=== PATIENT | female | born 1930 | race Hispanic/Latino ===

== ENCOUNTER 2016-12-20 21:15 | Inpatient (IN) | payer MEDICARE ==
--- NOTE | 2016-12-20 22:30 | ED PDOC ---
HPI: Trauma/Fall - HPI Time Seen by Provider: 12/20/16 21:39 Chief Complaint (Nursing): Trauma Chief Complaint (Provider): Evaluation s/p Fall History Per: Patient History/Exam Limitations: no limitations Injury Occurred (Timing): Just Before Arrival Location Of Injury: Right: Arm, Wrist Severity: Moderate Associated Symptoms: denies: LOC Additional Complaint(s): Essence Orona is an 86 year old female, with a past medical history inclusive of HTN, hypercholesterolemia, type II diabetes and a benign essential tremor, who presents to the ED on 12/20/16, via EMS, for evaluation after having slipped and fallen down a set of 15 stairs just prior to arrival. Patient is currently complaining of right arm pain and states that she did not attempt to ambulate post injury. She is unsure of whether or not she sustained any head trauma but denies loss of consciousness and states that she is able to remember the entire incident. PMD: Justo Peters Past Medical History Reviewed: Historical Data, Nursing Documentation, Vital Signs Vital Signs: Last Vital Signs Temp 97.3 F L 12/20/16 21:16 Pulse 64 12/20/16 21:16 Resp 20 12/20/16 21:16 BP 148/84 12/20/16 21:16 Pulse Ox 95 12/20/16 21:16 - Medical History PMH: Diabetes (type II), HTN, Hypercholesterolemia Other PMH: benign essential tremor - Surgical History Surgical History: Endoscopy - Family History Family History: States: Unknown Family Hx - Social History Current smoker - smoking cessation education provided: No Alcohol: None Drugs: Denies - Home Medications Home Medications: Ambulatory Orders Medication Instructions Recorded Alprazolam [Xanax] 0.25 mg PO DAILY 12/20/16 Atorvastatin [Lipitor] 10 mg PO DAILY 12/20/16 Hydrochlorothiazide [Microzide] 12.5 mg PO DAILY 12/20/16 Primidone [Mysoline] 250 mg PO DAILY 12/20/16 Propranolol [Inderal LA] 120 mg PO DAILY 12/20/16 metFORMIN [glucOPHAGE] 500 mg PO BID 12/20/16 - Allergies Allergies/Adverse Reactions: Allergies Allergy/AdvReac Type Severity Reaction Status Date / Time No Known Allergies Allergy Verified 12/20/16 21:16 Review of Systems ROS Statement: Except As Marked, All Systems Reviewed And Found Negative Musculoskeletal: Positive for: Arm Pain (right arm pain s/p fall) Neurological: Negative for: Altered Mental Status (no LOC, able to remember all events of incident) Physical Exam - Reviewed Nursing Documentation Reviewed: Yes Vital Signs Reviewed: Yes - Physical Exam Appears: Positive for: Non-toxic, No Acute Distress Head Exam: Positive for: ATRAUMATIC, NORMAL INSPECTION, NORMOCEPHALIC Skin: Positive for: Normal Color, Warm, Dry Eye Exam: Positive for: Normal appearance, EOMI, PERRL Neck: Positive for: Normal (c-spine is nontender), Painless ROM, Supple Cardiovascular/Chest: Positive for: Regular Rate, Rhythm. Negative for: Murmur Respiratory: Positive for: Normal Breath Sounds. Negative for: Respiratory Distress Pulses-Dorsalis Pedis (L): 2+ Pulses-Dorsalis Pedis (R): 2+ Pulses-Radial (L): 2+ Pulses-Radial (R): 2+ Gastrointestinal/Abdominal: Positive for: Normal Exam, Soft. Negative for: Tenderness Back: Positive for: Normal Inspection. Negative for: Vertebral Tenderness Extremity: Positive for: Tenderness (right elbow, right wrist), Capillary Refill (<2 seconds), Swelling (right elbow, right wrist, left knee), Other ( ecchymosis noted to left bicep and left knee). Negative for: Normal ROM ( limited ROM of right elbow/wrist secondary to pain; FROM of all remaining extremities including right shoulder and left knee), Deformity Neurologic/Psych: Positive for: Alert, Oriented, Other ((+) tremor). Negative for: Motor/Sensory Deficits (all motor/sensory intact) - Laboratory Results Result Diagrams: 12/21/16 23:52 12/21/16 00:10 - ECG O2 Sat by Pulse Oximetry: 95 (RA) Pulse Ox Interpretation: Normal - Critical Care Total Time (In Min): 30 Medical Decision Making Medical Decision Makin:39 Initial Impression: possible wrist fracture; will r/o other traumatic injury based on physical exam findings Initial Plan: * CT Head w/o contrast * CXR * XR Right Shoulder * XR Right Elbow * XR Right Wrist * XR Pelvis * XR Left Knee * Tylenol 650mg PO * Reevaluation 00:00 Multiple attempts to consult case with Dr. Cabello were made. No response from Dr. Cabello has been received in the past three hours, along with failure to answer any calls that were made to his personal cell phone number or pages made to his pager. Patient admitted to hospitalist service, Dr. Cook at bedside. 00:38 Procedure- Initial Fracture Care Indication: The patient has a right elbow fracture. Consent obtained from family members, patient given ketamine (see procedure note ), consent obtained. Gentle traction applied, splint placed with sugar tong, post-reduction xray obtained with better anatomical alignment. Post-procedure neuro check shows intact pulses and sensation. Assessment: The fracture was appropriately immobilized and was neurovascularly intact Procedure- conscious sedation 80mg of ketamine Patient placed on monitor including ETCO2, consent obtained from family members. Pt. with decreased arousability during reduction. Patient tolerated medication well, vitals tracked carefully. Scribe Attestation: Documented by Mirlande Stafford, acting as a scribe for Jamal Simon MD. Provider Scribe Attestation: All medical record entries made by the Scribe were at my direction and personally dictated by me. I have reviewed the chart and agree that the record accurately reflects my personal performance of the history, physical exam, medical decision making, and the department course for this patient. I have also personally directed, reviewed, and agree with the discharge instructions and disposition. Disposition - Clinical Impression Clinical Impression: Elbow fracture, Wrist fracture - Disposition Disposition Time: 00:00 Condition: STABLE
--- NOTE | 2016-12-20 22:33 | CT ---
EXAM: CT Head Without Intravenous Contrast. CLINICAL HISTORY: 86 years old, female; Injury or trauma; Fall; Initial encounter; Concussion / head injury; Additional info: R/O trauma TECHNIQUE: Axial computed tomography images of the head/brain without intravenous contrast. This CT exam was performed using one or more of the following dose reduction techniques: automated exposure control, adjustment of the mA and/or kV according to patient size, and/or use of iterative reconstruction technique. EXAM DATE/TIME: 12/20/2016 9:47 PM COMPARISON: No relevant prior studies available. FINDINGS: There is atrophy. There is chronic small vessel ischemic disease. There is no hemorrhage or edema. Mucosal thickening ethmoid and maxillary sinuses greater on the right. Small mucosal retention cyst left sphenoid sinus. No fractures. IMPRESSION: No acute intracranial findings.
[2016-12-20] MEDS ORDERED: Ketamine 50 mg/ml Inj (10 ml) ONE (23:56)
[2016-12-21] MEDS ORDERED: Ketamine 50 mg/ml Inj (10 ml) IV ONE (00:09)
--- NOTE | 2016-12-21 00:19 | RAD ---
EXAM: XR Right Elbow Complete, 3 or More Views. CLINICAL HISTORY: 86 years old, female; Injury or trauma; Fall; Initial encounter; Fracture, traumatic injury; Closed fracture; Elbow; Right; Additional info: R/O trauma TECHNIQUE: Frontal, lateral and oblique views of the right elbow. EXAM DATE/TIME: 12/20/2016 9:48 PM COMPARISON: No relevant prior studies available. FINDINGS: There is a displaced fracture resulting in separation of the olecranon from the proximal ulna. There is angulation as well as approximately 2 cm overlap of the olecranon and proximal ulna. There is irregularity of the radial head. There is probable capitellar fracture suboptimally evaluated on this study. IMPRESSION: Comminuted displaced fracture resulting in complete separation of the olecranon from the ulna with overlap and angulation resulting in disruption of the normal articulation. CT may be helpful for further evaluation given the complex nature of the fracture.
[2016-12-21 00:25] LABS: BASO % 0.4 % (0.0-2.0); EOS # 0.1 K/uL (0.0-0.7); EOS % 0.7 % (0.0-4.0); HEMATOCRIT 36.5 % (34.0-47.0); LYMPH # 0.8 K/uL (1.0-4.3); LYMPH % 6.5 % (20.0-40.0); MEAN CELL VOLUME 99.6 fl (81.0-99.0); MEAN CORPUSCULAR HEMOGLOBIN 32.9 pg (27.0-31.0); MONO # 0.7 K/uL (0.0-0.8); MONO % 5.9 % (0.0-10.0); NEUT # 10.6 K/uL (1.8-7.0); NEUT % 86.5 % (50.0-75.0); NRBC % 0.1 % (0.0-0.0); PLATELET COUNT 199 K/uL (130-400); RED CELL DISTRIBUTION WIDTH 14.1 % (11.5-14.5); WHITE BLOOD COUNT 12.3 K/uL (4.8-10.8)
[2016-12-21 00:39] LABS: BLOOD UREA NITROGEN 22 mg/dl (7-17); CALCIUM 9.1 mg/dL (8.4-10.2); CARBON DIOXIDE 28 mmol/L (22-30); CHLORIDE 98 mmol/L (98-107); GFR AFRICAN-AMERICAN > 60; GLUCOSE,RANDOM 151 mg/dL (65-105); POTASSIUM 3.7 MMOL/L (3.6-5.0); SODIUM 139 mmol/l (132-148)
[2016-12-21 01:02] LABS: PARTIAL THROMBOPLASTIN TIME 26.8 SECONDS (23.3-32.5)
[2016-12-21] MEDS: Sodium Chloride 0.9% 1,000 ML IV SCH ×3 (02:25→22:12)
[2016-12-21 02:26] LABS: NEUTROPHIL 87 % (42-75); REACTIVE LYMPHOCYTES 3 % (0-0); TOTAL CELLS COUNTED 100
--- NOTE | 2016-12-21 02:34 | CP.PCM.HP ---
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 She is an 86 years old female with hx of HTN, DM II and Essential Tremors, who comes to the ED after slipping and falling down 15 stairs receiving trauma to the right arm and wrist , left shoulder, left knee and the buttocks. No LOC nor head injury. She refers no headache, dizziness, SOB, Chest pain nor palpitation. PMH: DM II; HTN; HLD; Benign Essential tremors. PSH: Endoscopy; Cardiac Cath 2010; Cholecystectomy > 20 years ago; Bilateral Knee replacement SH: No smoking; No Alcohol use; No illegal drug use; Live with Family FH: No Hereditary diseases Allergies: NKDA Present on Admission - Present on Admission Any Indicators Present on Admission: No History of DVT/PE: No History of Uncontrolled Diabetes: No Urinary Catheter: No Decubitus Ulcer Present: No Review of Systems - Constitutional Constitutional: absent: Anorexia, Chills, Fatigue, Fever, Headache - EENT Eyes: Requires Corrective Lenses. absent: Blurred Vision, Diplopia Ears: absent: Decreased Hearing, Ear Discharge, Tinnitus Nose/Mouth/Throat: absent: Epistaxis, Nasal Congestion, Nasal Discharge, Sinus Pain, Sinus Pressure, Sore Throat - Cardiovascular Cardiovascular: absent: Chest Pain, Diaphoresis, Dyspnea, Edema - Respiratory Respiratory: absent: Cough, Wheezing, Stridor - Gastrointestinal Gastrointestinal: absent: Abdominal Pain, Constipation, Diarrhea, Nausea - Genitourinary Genitourinary: absent: Dysuria, Pyuria, Urinary Incontinence, Urinary Frequency , Freq UTI - Musculoskeletal Additional comments: Ecchymosis at the left arm, left knee , tight shoulder. - Integumentary Integumentary: absent: Dry Skin, Erythema, Photosensitivity, Pruritus, Skin Ulcer, Sores, Striae, Swelling - Neurological Neurological: Tremor. absent: Focal Weakness, Headaches, Memory Loss - Psychiatric Psychiatric: absent: Anxiety, Depression, Panic Attacks - Endocrine Endocrine: absent: Palpitations, Polydipsia, Polyphagia, Polyuria - Hematologic/Lymphatic Hematologic: absent: Easy Bleeding, Easy Bruising Past Patient History - Past Social History Smoking Status: Unknown If Ever Smoked Chewing Tobacco Use: No Cigar Use: No Alcohol: None Drugs: Denies Home Situation {Lives}: With Family - CARDIAC Hx Cardiac Disorders: Yes (HTN, CAD, High Cholesterol) Hx Hypercholesterolemia: Yes Hx Hypertension: Yes - PULMONARY Hx Respiratory Disorders: No - NEUROLOGICAL Hx Neurological Disorder: Yes (Essential tremors) Other/Comment: Essential tremors - HEENT Hx HEENT Problems: No - RENAL Hx Chronic Kidney Disease: No - ENDOCRINE/METABOLIC Hx Endocrine Disorders: Yes (DM) Hx Diabetes Mellitus Type 2: Yes - HEMATOLOGICAL/ONCOLOGICAL Hx Blood Disorders: No - INTEGUMENTARY Hx Dermatological Problems: No - MUSCULOSKELETAL/RHEUMATOLOGICAL Hx Musculoskeletal Disorders: No - GASTROINTESTINAL Hx Gastrointestinal Disorders: No - GENITOURINARY/GYNECOLOGICAL Hx Genitourinary Disorders: No - PSYCHIATRIC Hx Psychophysiologic Disorder: No - SURGICAL HISTORY Hx Cholecystectomy: Yes Other/Comment: Bilateral knee replacement - ANESTHESIA Hx Anesthesia: Yes Hx Anesthesia Reactions: No Meds Allergies/Adverse Reactions: Allergies Allergy/AdvReac Type Severity Reaction Status Date / Time No Known Allergies Allergy Verified 12/20/16 21:16 Physical Exam - Constitutional Appears: No Acute Distress - Head Exam Head Exam: ATRAUMATIC, NORMAL INSPECTION, NORMOCEPHALIC - Eye Exam Eye Exam: EOMI, Normal appearance Pupil Exam: NORMAL ACCOMODATION, PERRL - ENT Exam ENT Exam: Mucous Membranes Moist, Normal Exam. absent: Normal External Ear Exam , Normal Oropharynx - Neck Exam Neck exam: Positive for: Full Rom, Normal Inspection. Negative for: Lymphadenopathy, Tenderness - Respiratory Exam Respiratory Exam: Clear to Auscultation Bilateral. absent: Rales, Rhonchi, Wheezes - Cardiovascular Exam Cardiovascular Exam: +S1, +S2. absent: Gallop, RRR, Systolic Murmur - GI/Abdominal Exam GI & Abdominal Exam: Normal Bowel Sounds, Soft. absent: Organomegaly, Tenderness - Rectal Exam Rectal Exam: Deferred - Extremities Exam Additional comments: Right shoulder , left shoulder and left knee with contusion and eccyhymosis. The right arm , elbow and proximal forearm with a soft cast. - Back Exam Back exam: FULL ROM, NORMAL INSPECTION. absent: CVA tenderness (L), CVA tenderness (R) - Neurological Exam Neurological exam: Alert, CN II-XII Intact, Oriented x3, Reflexes Normal - Psychiatric Exam Psychiatric exam: Normal Affect, Normal Mood - Skin Skin Exam: Dry, Intact, Normal Color, Warm Results - Vital Signs Recent Vital Signs: Last Vital Signs Temp 98.9 F 12/21/16 01:35 Pulse 72 12/21/16 01:35 Resp 18 12/21/16 01:35 BP 129/72 12/21/16 01:35 Pulse Ox 95 12/21/16 00:55 - Labs Result Diagrams: 12/21/16 23:52 12/21/16 00:10 Labs: Laboratory Results - last 24 hr 12/21/16 23:52 WBC 12.3 H RBC 3.66 L Hgb 12.0 Hct 36.5 MCV 99.6 H MCH 32.9 H MCHC 33.0 RDW 14.1 Plt Count 199 MPV 8.0 Neut % (Auto) 86.5 H Lymph % (Auto) 6.5 L [place] % (Auto) 5.9 Eos % (Auto) 0.7 Baso % (Auto) 0.4 Neut # 10.6 H Lymph # 0.8 L Wright # 0.7 Eos # 0.1 Baso # 0.0 Neutrophils % (Manual) 87 H Lymphocytes % (Manual) 7 L Reactive Lymphs % 3 H Monocytes % (Manual) 3 Platelet Estimate Normal - Imaging and Cardiology Right Elbow Status: Report reviewed by me Additional comment: FINDINGS: There is a displaced fracture resulting in separation of the olecranon from the proximal ulna. There is angulation as well as approximately 2 cm overlap of the olecranon and proximal ulna. There is irregularity of the radial head. There is probable capitellar fracture suboptimally evaluated on this study. IMPRESSION: Comminuted displaced fracture resulting in complete separation of the olecranon from the ulna with overlap and angulation resulting in disruption of the normal articulation. CT may be helpful for further evaluation given the complex nature of the fracture. CT scan - head Status: Report reviewed by me Additional comment: FINDINGS: There is atrophy. There is chronic small vessel ischemic disease. There is no hemorrhage or edema. Mucosal thickening ethmoid and maxillary sinuses greater on the right. Small mucosal retention cyst left sphenoid sinus. No fractures. IMPRESSION: No acute intracranial findings. Assessment & Plan - Assessment and Plan (Free Text) Assessment: #. Right Elbow fracture #. Right wrist Fx #. Dehydration #. Leukocytosis #. DM II with hyperglycemia #. HTN #. Essential Tremors Plan: 86 years old female with hx of HTN, DM II and Essential Tremors, who comes to the ED after slipping and falling down 15 stairs receiving trauma to the right arm and wrist, left shoulder, left knee and the buttocks. No LOC nor head injury. #. Right Elbow fracture- was reduced in the ED by the ED physician #. Right wrist Fx - Consult Dr Cabello orthopedist - NPO in case of surgical intervention today - Pain management with Toradol #. Multicontusions from fall - Pain management #. Dehydration - IV Fluids - Follow renal labs #. Neutrophilic Leukocytosis - Follow WBC #. DM II with hyperglycemia - Reguar insulin sliding scale with accucheck - Hold Metformin until patient begins to #. HTN - Propranol 120mgPO daily - follow BP #. Essential Tremors - Primidone #. DVT prophlaxis with SCD #. Code Status: Full - Date & Time Date: 12/21/16 Time: 02:34
[2016-12-21 04:29] LABS: RBC URINE 10 /hpf (0-3); URINE BACTERIA MANY (<OCC); URINE BILIRUBIN MODERATE (NEGATIVE); URINE BLOOD NEGATIVE (NEGATIVE); URINE COLOR AMBER (YELLOW); URINE GLUCOSE (UA) NEG (Normal); URINE KETONE NEGATIVE (NEGATIVE); URINE LEUKOCYTE ESTERASE LARGE Leu/uL (Negative); URINE PROTEIN 30 mg/dL (NEGATIVE); URINE UROBILINOGEN 0.2-1.0 mg/dL (0.2-1.0); WBC URINE 45 /hpf (0-5)
--- NOTE | 2016-12-21 06:36 | RAD ---
PROCEDURE: Right Wrist Radiographs. HISTORY: r/o trauma COMPARISON: None. FINDINGS: BONES: IMPACTION DISTAL RADIUS FRACTURE WITH DISPLACEMENT. JOINTS: Normal. No dislocation. SOFT TISSUES: Normal. OTHER FINDINGS: None. IMPRESSION: Distal radius fracture.
--- NOTE | 2016-12-21 06:38 | RAD ---
PROCEDURE: CHEST RADIOGRAPH, 1 VIEW HISTORY: r/o trauma COMPARISON: None available. FINDINGS: LUNGS: Clear. PLEURA: No pneumothorax or pleural fluid seen. CARDIOVASCULAR: Normal. OSSEOUS STRUCTURES: No significant abnormalities. VISUALIZED UPPER ABDOMEN: Normal. OTHER FINDINGS: None. IMPRESSION: No active disease.
--- NOTE | 2016-12-21 06:40 | RAD ---
PROCEDURE: Radiographs of the Right Shoulder HISTORY: r/o trauma COMPARISON: No prior. FINDINGS: BONES: Normal. No fracture. JOINTS: Normal. Glenohumeral and acromioclavicular joints preserved. No osteoarthritis. SOFT TISSUES: Normal. OTHER FINDINGS: None. IMPRESSION: Normal radiographs of the right shoulder.
--- NOTE | 2016-12-21 06:45 | RAD ---
HISTORY: r/o trauma COMPARISON: No prior FINDINGS: BONES: Normal. No fracture. JOINTS: Normal. No osteoarthritis. SOFT TISSUE: Normal. OTHER FINDINGS: None . IMPRESSION: Normal Bone Xray.
--- NOTE | 2016-12-21 06:53 | RAD ---
HISTORY: r/o trauma COMPARISON: No prior FINDINGS: BONES: Normal. No fracture. Status post total knee replacement. JOINTS: Normal. No osteoarthritis. SOFT TISSUE: Normal. OTHER FINDINGS: None . IMPRESSION: Status post total knee replacement.
--- NOTE | 2016-12-21 06:56 | RAD ---
HISTORY: post reduction COMPARISON: No prior FINDINGS: BONES: Cast obscures bone detail. There is a proximal ulnar fracture as well as a possible coronoid fracture. JOINTS: Normal. No osteoarthritis. SOFT TISSUE: Normal. OTHER FINDINGS: None . IMPRESSION: Cast obscures bone detail. There is a proximal ulnar fracture as well as a possible coronoid fracture.
[2016-12-21] MEDS: Insulin Regular 100 units/ml SC SCH ×4 (07:30→22:00)
[2016-12-21 08:16] LABS: BASO % 0.7 % (0.0-2.0); EOS # 0.1 K/uL (0.0-0.7); EOS % 0.7 % (0.0-4.0); HEMATOCRIT 33.6 % (34.0-47.0); LYMPH # 1.7 K/uL (1.0-4.3); LYMPH % 23.4 % (20.0-40.0); MEAN CELL VOLUME 100.1 fl (81.0-99.0); MEAN CORPUSCULAR HEMOGLOBIN 33.1 pg (27.0-31.0); MEAN PLATELET VOLUME 8.2 fl (7.2-11.7); MONO # 0.8 K/uL (0.0-0.8); MONO % 10.4 % (0.0-10.0); NEUT # 4.8 K/uL (1.8-7.0); NEUT % 64.8 % (50.0-75.0); RED CELL DISTRIBUTION WIDTH 13.8 % (11.5-14.5); WHITE BLOOD COUNT 7.5 K/uL (4.8-10.8)
--- NOTE | 2016-12-21 08:16 | CARD ---
APPROVED REPORT EKG Measurement Heart [id number] <Conclusion> Normal sinus rhythm Moderate voltage criteria for LVH, may be normal variant Nonspecific ST and T wave abnormality Abnormal ECG
[2016-12-21 08:19] LABS: BLOOD UREA NITROGEN 22 mg/dl (7-17); CALCIUM 8.6 mg/dL (8.4-10.2); CARBON DIOXIDE 28 mmol/L (22-30); CHLORIDE 101 mmol/L (98-107); GFR AFRICAN-AMERICAN > 60; GLUCOSE,RANDOM 105 mg/dL (65-105); POTASSIUM 3.6 MMOL/L (3.6-5.0); SODIUM 141 mmol/l (132-148)
[2016-12-21] MEDS: PROPRANOLOL 120 MG PO SCH (09:48)
--- NOTE | 2016-12-21 12:12 | CP.PCM.CON ---
History of Present Illness - History of Present Illness History of Present Illness: ID: 86 yo female CC: Pain and restericted ROM R elbow/R wrist HPI: encounter carried out in prescence of family. Pt sustained a fall down sixteen stairs last PM; pt admitted thru ER with complex R elbow fx and radial head fx and fx distal radius. Pros, cons rikss and benfits of surgical approach discussed Berkley Isidro, the pt and the kasia loja. Awaiting medical stabilization for surg Review of Systems - Hematologic/Lymphatic Additional comments: - LOC Past Patient History - Past Medical History & Family History Past Medical History?: Yes - Past Social History Smoking Status: Never Smoked - CARDIAC Hx Cardiac Disorders: Yes (HTN, CAD, High Cholesterol) Hx Hypercholesterolemia: Yes Hx Hypertension: Yes - PULMONARY Hx Respiratory Disorders: No - NEUROLOGICAL Hx Neurological Disorder: Yes (Essential tremors) Other/Comment: Essential tremors - HEENT Hx HEENT Problems: No - RENAL Hx Chronic Kidney Disease: No - ENDOCRINE/METABOLIC Hx Endocrine Disorders: Yes (DM) Hx Diabetes Mellitus Type 2: Yes - HEMATOLOGICAL/ONCOLOGICAL Hx Blood Disorders: No - INTEGUMENTARY Hx Dermatological Problems: No - MUSCULOSKELETAL/RHEUMATOLOGICAL Hx Musculoskeletal Disorders: Yes Hx Falls: Yes - GASTROINTESTINAL Hx Gastrointestinal Disorders: No - GENITOURINARY/GYNECOLOGICAL Hx Genitourinary Disorders: No - PSYCHIATRIC Hx Psychophysiologic Disorder: No Hx Substance Use: No - SURGICAL HISTORY Hx Cholecystectomy: Yes Other/Comment: Bilateral knee replacement - ANESTHESIA Hx Anesthesia: Yes Hx Anesthesia Reactions: No Hx Malignant Hyperthermia: No Has any member of the family had a problem w/ anesthesia?: No Meds Allergies/Adverse Reactions: Allergies Allergy/AdvReac Type Severity Reaction Status Date / Time No Known Allergies Allergy Verified 12/20/16 21:16 - Medications Medications: Current Medications Alprazolam (Xanax) 0.25 mg PO DAILY HARRY Stop: 12/28/16 09:01 Last Admin: 12/21/16 09:47 Dose: 0.25 mg Sodium Chloride (Sodium Chloride 0.9%) 1,000 mls @ 100 mls/hr IV .Q10H HARRY Stop: 12/22/16 02:01 Last Admin: 12/21/16 02:25 Dose: 100 mls/hr Ceftriaxone Sodium 1 gm/ (Sodium Chloride) 100 mls @ 100 mls/hr IVPB DAILY HARRY Last Admin: 03/26/17 09:47 Dose: 100 mls/hr Insulin Human Regular (Humulin R) 0 units SC ACHS HARRY PRN Reason: Protocol Last Admin: 12/21/16 07:30 Dose: Not Given Ketorolac Tromethamine (Toradol) 30 mg IVP Q6 PRN PRN Reason: Pain, severe (8-10) Last Admin: 12/21/16 09:35 Dose: 30 mg Ketorolac Tromethamine (Toradol) 15 mg IVP Q6 PRN PRN Reason: Pain, moderate (4-7) Last Admin: 12/21/16 02:38 Dose: 15 mg Propranolol HCl (Inderal La) 120 mg PO DAILY [facility] Last Admin: 12/21/16 09:48 Dose: 120 mg Physical Exam - Additional Findings Additional findings: Physical exam ' systemic exam- wnl Musculoskekeltal stance/gaiot- defrred R upper ext immobilized i9n splint Results - Vital Signs Recent Vital Signs: Last Vital Signs Temp 98 F 12/21/16 08:43 Pulse 76 12/21/16 09:48 Resp 20 12/21/16 08:43 BP 130/70 12/21/16 09:48 Pulse Ox 97 12/21/16 08:43 - Labs Result Diagrams: 12/21/16 23:52 12/21/16 05:30 Labs: Laboratory Results - last 24 hr 12/21/16 12/21/16 11:37 23:52 WBC 12.3 H D RBC 3.66 L Hgb 12.0 Hct 36.5 MCV 99.6 H MCH 32.9 H MCHC 33.0 RDW 14.1 Plt Count 199 MPV 8.0 Neut % (Auto) 86.5 H Lymph % (Auto) 6.5 L [place] % (Auto) 5.9 Eos % (Auto) 0.7 Baso % (Auto) 0.4 Neut # 10.6 H Lymph # 0.8 L [place] # 0.7 Eos # 0.1 Baso # 0.0 Neutrophils % (Manual) 87 H Lymphocytes % (Manual) 7 L Reactive Lymphs % 3 H Monocytes % (Manual) 3 Platelet Estimate Normal POC Glucose (mg/dL) 122 H - Impressions Impression: Imaging planar xrays - reveal evidence of displaced/comminuted olecranon fx displaced radial head fx displaced/comminuted dista radius fx Assessment & Plan - Assessment and Plan (Free Text) Assessment: A- displaced/comminuted distal radius fx/displaced fx olecranon/fx radial head R P- to OR for ORIF prox ulna fx/ ORIF R radial head replaceemnt, possible radial head excision/possible oRIF displaced comminuted distal radius fx
--- NOTE | 2016-12-21 13:36 | CP.PCM.CON ---
History of Present Illness - History of Present Illness History of Present Illness: THE PATIENT IS AN 86 YEAR OLD FEMALE WITH A HISTORY OF HYPERTENSION, HYPERLIPIDEMIA, TYPE 2 DM AND ESSENTIAL TREMORS. SHE SLIPPED AND FELL DOWN HER STAIRS AT HOME AND SUSTAINED TRAUMA AND FRACTURES OF THE WRIST AND ELBOW. SHE WILL HAVE SURGERY AND CARDIOLOGY WAS ASKED TO EVALUATE AND FOLLOW. SHE DENIES ANY CARDIAC PROBLEMS. IT IS OF NOTE THAT SHE HAD SEVERE DEHYDRATION IN 2010 AT [facility] [place] AND HER FIRST TROPONIN WAS ELEVATED DUE TO THE DEHYDRATION SO SHE INDERWENT A CARDIAC CATH THAT WAS NEGATIVE. Past Patient History - Past Medical History & Family History Past Medical History?: Yes - Past Social History Smoking Status: Never Smoked - CARDIAC Hx Cardiac Disorders: Yes (HTN, CAD, High Cholesterol) Hx Hypercholesterolemia: Yes Hx Hypertension: Yes - PULMONARY Hx Respiratory Disorders: No - NEUROLOGICAL Hx Neurological Disorder: Yes (Essential tremors) Other/Comment: Essential tremors - HEENT Hx HEENT Problems: No - RENAL Hx Chronic Kidney Disease: No - ENDOCRINE/METABOLIC Hx Endocrine Disorders: Yes (DM) Hx Diabetes Mellitus Type 2: Yes - HEMATOLOGICAL/ONCOLOGICAL Hx Blood Disorders: No - INTEGUMENTARY Hx Dermatological Problems: No - MUSCULOSKELETAL/RHEUMATOLOGICAL Hx Musculoskeletal Disorders: Yes Hx Falls: Yes - GASTROINTESTINAL Hx Gastrointestinal Disorders: No - GENITOURINARY/GYNECOLOGICAL Hx Genitourinary Disorders: No - PSYCHIATRIC Hx Psychophysiologic Disorder: No Hx Substance Use: No - SURGICAL HISTORY Hx Cholecystectomy: Yes Other/Comment: Bilateral knee replacement - ANESTHESIA Hx Anesthesia: Yes Hx Anesthesia Reactions: No Hx Malignant Hyperthermia: No Has any member of the family had a problem w/ anesthesia?: No Meds Allergies/Adverse Reactions: Allergies Allergy/AdvReac Type Severity Reaction Status Date / Time No Known Allergies Allergy Verified 12/20/16 21:16 - Medications Medications: Current Medications Alprazolam (Xanax) 0.25 mg PO DAILY [facility] Stop: 12/28/16 09:01 Last Admin: 12/21/16 09:47 Dose: 0.25 mg Sodium Chloride (Sodium Chloride 0.9%) 1,000 mls @ 100 mls/hr IV .Q10H [facility] Stop: 12/22/16 02:01 Last Admin: 12/21/16 02:25 Dose: 100 mls/hr Ceftriaxone Sodium 1 gm/ (Sodium Chloride) 100 mls @ 100 mls/hr IVPB DAILY [facility] Last Admin: 12/21/16 09:47 Dose: 100 mls/hr Insulin Human Regular (Humulin R) 0 units SC ACHS [facility] PRN Reason: Protocol Last Admin: 12/21/16 07:30 Dose: Not Given Ketorolac Tromethamine (Toradol) 30 mg IVP Q6 PRN PRN Reason: Pain, severe (8-10) Last Admin: 12/21/16 09:35 Dose: 30 mg Ketorolac Tromethamine (Toradol) 15 mg IVP Q6 PRN PRN Reason: Pain, moderate (4-7) Last Admin: 12/21/16 02:38 Dose: 15 mg Propranolol HCl (Inderal La) 120 mg PO DAILY [facility] Last Admin: 12/21/16 09:48 Dose: 120 mg Physical Exam - Respiratory Exam Respiratory Exam: Clear to Auscultation Bilateral - Cardiovascular Exam Cardiovascular Exam: REGULAR RHYTHM, +S1, +S2 (NO SIGNIFICANT ) - Extremities Exam Additional comments: NO SIGNIFICANT LE EDEMA - Additional Findings Additional findings: EKG NSR, LVE, NSSTT CHANGES CXR NAD Results - Vital Signs Recent Vital Signs: Last Vital Signs Temp 98 F 12/21/16 08:43 Pulse 76 12/21/16 09:48 Resp 20 12/21/16 08:43 BP 130/70 12/21/16 09:48 Pulse Ox 97 12/21/16 08:43 - Labs Result Diagrams: 12/24/16 06:20 12/24/16 06:20 Labs: Laboratory Results - last 24 hr 12/21/16 12/21/16 11:37 23:52 WBC 12.3 H D RBC 3.66 L Hgb 12.0 Hct 36.5 MCV 99.6 H MCH 32.9 H MCHC 33.0 RDW 14.1 Plt Count 199 MPV 8.0 Neut % (Auto) 86.5 H Lymph % (Auto) 6.[address] [place] % (Auto) 5.9 Eos % (Auto) 0.7 Baso % (Auto) 0.4 Neut # 10.6 H Lymph # 0.[address] [place] # 0.7 Eos # 0.1 Baso # 0.0 Neutrophils % (Manual) 87 H Lymphocytes % (Manual) 7 L Reactive Lymphs % 3 H Monocytes % (Manual) 3 Platelet Estimate Normal POC Glucose (mg/dL) 122 H Assessment & Plan - Assessment and Plan (Free Text) Assessment: FALL WITH TRAUMA AND FRACTURES HYPERTENSION HYPERLIPIDEMIA TYPE 2 DM Plan: THE PATIENT IS CLEAR FROM THE CARDIAC VIEWPOINT FOR SURGERY CONTINUE PROPRANOLOL
--- NOTE | 2016-12-21 14:21 | CP.PCM.PN ---
Subjective - Date & Time of Evaluation Date of Evaluation: 12/21/16 Time of Evaluation: 14:00 - Subjective Subjective: Patient seen and examined .Sitting in chair.Complains of pain to right upper extremity from elbow to the wrist 8/10 .Denies any chest pain , SOB, palpitations, PND, orthopnea, dyspnea. Hemodynamically stable, afebrile Right upper extremity with splint in place Objective - Vital Signs/Intake and Output Vital Signs (last 24 hours): Temp Pulse Resp BP Pulse Ox 98 F 76 20 130/70 97 12/21/16 08:43 12/21/16 09:48 12/21/16 08:43 12/21/16 09:48 12/21/16 08:43 - Medications Medications: Current Medications Alprazolam (Xanax) 0.25 mg PO DAILY [facility] Stop: 12/28/16 09:01 Last Admin: 12/21/16 09:47 Dose: 0.25 mg Atorvastatin Calcium (Lipitor) 10 mg PO DAILY [facility] Hydrochlorothiazide (Microzide) 12.5 mg PO DAILY [facility] Sodium Chloride (Sodium Chloride 0.9%) 1,000 mls @ 100 mls/hr IV .Q10H [facility] Stop: 12/22/16 02:01 Last Admin: 12/21/16 02:25 Dose: 100 mls/hr Ceftriaxone Sodium 1 gm/ (Sodium Chloride) 100 mls @ 100 mls/hr IVPB DAILY [facility] Last Admin: 12/21/16 09:47 Dose: 100 mls/hr Insulin Human Regular (Humulin R) 0 units SC ACHS [facility] PRN Reason: Protocol Last Admin: 12/21/16 07:30 Dose: Not Given Ketorolac Tromethamine (Toradol) 30 mg IVP Q6 PRN PRN Reason: Pain, severe (8-10) Last Admin: 12/21/16 09:35 Dose: 30 mg Ketorolac Tromethamine (Toradol) 15 mg IVP Q6 PRN PRN Reason: Pain, moderate (4-7) Last Admin: 12/21/16 02:38 Dose: 15 mg Metformin HCl (Glucophage) 500 mg PO BID [facility] Primidone (Mysoline) 250 mg PO DAILY [facility] Propranolol HCl (Inderal La) 120 mg PO DAILY [facility] Last Admin: 12/21/16 09:48 Dose: 120 mg - Labs Labs: 12/21/16 23:52 PT 10.8 SECONDS (9.6-11.2) 12/21/16 00:10 INR 1.04 (0.92-1.08) 12/21/16 00:10 APTT 26.8 SECONDS (23.3-32.5) 12/21/16 00:10 - Constitutional Appears: Non-toxic, No Acute Distress, Other (pleasant with resting tremors , overweight ) - Head Exam Head Exam: ATRAUMATIC, NORMAL INSPECTION, NORMOCEPHALIC - Eye Exam Eye Exam: EOMI, Normal appearance, PERRL Pupil Exam: NORMAL ACCOMODATION - ENT Exam ENT Exam: Mucous Membranes Moist, Normal Exam - Neck Exam Neck Exam: Full ROM, Normal Inspection - Respiratory Exam Respiratory Exam: Clear to Ausculation Bilateral, NORMAL BREATHING PATTERN. absent: Rales, Rhonchi, Wheezes - Cardiovascular Exam Cardiovascular Exam: REGULAR RHYTHM, RRR, +S1, +S2. absent: JVD - GI/Abdominal Exam GI & Abdominal Exam: Soft, Normal Bowel Sounds. absent: Distended, Guarding, Rebound - Rectal Exam Rectal Exam: Deferred - Extremities Exam Extremities Exam: Normal Capillary Refill. absent: Calf Tenderness, Pedal Edema Additional comments: RUE with splint in place , able to move fingers , cool to touch , sensation intact - Neurological Exam Neurological Exam: Alert, Awake, CN II-XII Intact, Oriented x3 Additional comments: resting tremors - Psychiatric Exam Psychiatric exam: Normal Affect, Normal Mood - Skin Skin Exam: Dry, Normal Color, Warm Additional comments: Left elbow bruises LLE distal aspect 2 small abrasions with dressing Left buttock small linear abrasion with dressing in place . Assessment and Plan - Assessment and Plan (Free Text) Assessment: 86 years old female with hx of HTN, DM II and Essential Tremors, came to ED after slipping and falling down 15 flights of stairs receiving trauma to the right arm and wrist, left shoulder, left knee and the buttocks. No LOC nor head injury. Patient was found to have right wrist and elbow fracture. She is admitted to med/surg and ortho consulted 1. Right Elbow fracture- was reduced in the ED by the ED physician 2 Right wrist Fx As result of fall Ortho consult with Dr. Cabello appreciated. Patient will most likely benefit from surgical intervention Dr. Ricketts consulted for cardiac clearance.Patient is cleared from cardiac point of view to proceed with surgery Continue pain management with Toradol for now. Can consider narcotics if pain not controlled Keep right arm elevated. Ice application for relief 3. Suspected UTI UA cloudy with LE +, WBC 45 and many bacteria Started Rocephin 1 g IV daily Send urine culture 3. Dehydration Continue IV Fluids NS @ 80 cc/hr 4. Neutrophilic Leukocytosis Most likely reactive and secondary to UTI 5. DM II with hyperglycemia Reguar insulin sliding scale with accucheck cardiac and diabetic diet start Metformin 6 HTN controlled on Propranol 120mgPO daily 7.Essential Tremors Start Primidone and propranolol 8.. DVT prophlaxis SCD and Lovenox
[2016-12-21] MEDS: Enoxaparin 40 mg Syringe SC SCH (18:42)
[2016-12-22 07:03] LABS: HEMATOCRIT 32.6 % (34.0-47.0); MEAN CELL VOLUME 99.5 fl (81.0-99.0); MEAN CORPUSCULAR HEMOGLOBIN 33.1 pg (27.0-31.0); MEAN CORPUSCULAR HGB CONC 33.3 g/dL (33.0-37.0); RED CELL DISTRIBUTION WIDTH 13.8 % (11.5-14.5); WHITE BLOOD COUNT 6.7 K/uL (4.8-10.8)
[2016-12-22 07:17] LABS: BLOOD UREA NITROGEN 19 mg/dl (7-17); CALCIUM 8.1 mg/dL (8.4-10.2); CARBON DIOXIDE 25 mmol/L (22-30); CHLORIDE 103 mmol/L (98-107); GFR AFRICAN-AMERICAN > 60; GLUCOSE,RANDOM 125 mg/dL (65-105); POTASSIUM 3.8 MMOL/L (3.6-5.0); SODIUM 136 mmol/l (132-148)
[2016-12-22] MEDS: Insulin Regular 100 units/ml SC SCH ×2 (07:32→21:12)
[2016-12-22] MEDS: PROPRANOLOL 120 MG PO SCH (08:32)
[2016-12-22] MEDS: Enoxaparin 40 mg Syringe SC SCH (08:33)
[2016-12-22] MEDS ORDERED: Dexamethasone 4 mg/1 ml ONE (10:31)
[2016-12-22] MEDS ORDERED: Bupivacaine 0.5% Inj(30mL) ONE (10:31)
[2016-12-22] MEDS ORDERED: Thrombin Topical 5,000 IU Spray Kit ONE (10:31)
[2016-12-22] MEDS ORDERED: Bacitracin Ointment 30 GM TUBE ONE (10:31)
[2016-12-22] MEDS ORDERED: Absorbable Gelatin Sponge Size 100 ONE (10:31)
--- NOTE | 2016-12-22 10:45 | CP.PCM.PN ---
Subjective - Date & Time of Evaluation Date of Evaluation: 12/22/16 Time of Evaluation: 10:30 - Subjective Subjective: Hospitalist Progress Note (Patient was seen and examined at 10:30 AM 12/22/16 [id number] with Son Jerardo and Daughter Aminta present) 86 year old male who was admitted 12/21/16 s/p falling down 15 flight of stairs. X Rays here at [facility] indicated fracture of the right radial head, right proximal ulna, and right wrist fracture. She is scheduled for surgery with Orthopedics Dr. Mares today 12/22/16. Complains of Pain in Right Elbow and Wrist that come and goes and worse with movement. She had a bowel movement this morning. Dry Mouth. NO chest pain, NO palpitations, NO SOB/Cough/Wheezing, NO dysphagia/odynophagia , NO abdominal pain, NO n/v/d/c, NO burning/pain with urination, NO lightheadedness/dizziness, NO headaches, NO new changes in vision/eye pain, NO new changes in hearing/ear pain, NO paresthesias HEENT: NCA, EOMI, PERRLA, NO cervical lymphadenopathy, NO thyromegaly, Oral Mucosa and Nasal Turbinates are dry, NO Pharygeal Erythema/Exudate Cardiology: Systolic Ejection Murmur heard loudest along left lower sternal border Respiratory: CTA B/L, NO R/R/W GI: BSx4, Soft, NT, Central Obesity, NO HSM, NO Guarding/Rebound Tenderness Ext: Right Arm in Brace/Spint, Pulses are strong and equal, Capillary Refill is 2 seconds, NO edema in Left UE and B/L LE Neuro: CN II throug XII are grossly intact Assessement and Plan: 1). Right Elbow (Radial Head and Proximal Ulna)/Right Wrist Fracture Orthopedics Dr. Mares to take patient for srugery today Dr. Ricketts: patient cleared from cardia standpoint for surgery Toradol 30 mg IV Q6H PRN Pain 8 to 10 Toradol 15 mg IV Q6H PRN Pain 4 to 7 2). Suspected UTI UA cloudy with LE +, WBC 45 and many bacteria Rocephin 1 g IV daily F/U Urine Culture 3). Dehydration IV Fluids NS @ 80 cc/hr 4). Neutrophilic Leukocytosis Most likely reactive and secondary to UTI 5). DM II with Hyperglycemia Reguar insulin sliding scale with accuchecks Cardiac and Diabetic diet Metformin 500 mg PO 2x/day Controlled 6). HTN Propranol 120mg PO daily Controlled 7).Essential Tremors Primidone 250 mg PO 1x/day Propranolol 120 mg PO 1x/day 8). Prophylactic Measures SCDs Lovenox 40 mg SQ 1x/day Xanax 0.25 mg PO 1x/day Objective - Vital Signs/Intake and Output Vital Signs (last 24 hours): Temp Pulse Resp BP Pulse Ox 98.2 F 68 20 167/78 H 96 12/22/16 10:40 12/22/16 10:40 12/22/16 10:40 12/22/16 10:40 12/22/16 10:40 Intake and Output: 12/22/16 12/22/16 06:59 18:59 Intake Total 1100 Output Total 100 Balance 1000 - Medications Medications: Current Medications Alprazolam (Xanax) 0.25 mg PO DAILY [facility] Stop: 12/28/16 09:01 Last Admin: 12/22/16 08:34 Dose: Not Given Atorvastatin Calcium (Lipitor) 10 mg PO DAILY [facility] Last Admin: 12/22/16 08:33 Dose: Not Given Enoxaparin Sodium (Lovenox) 40 mg SC DAILY [facility] PRN Reason: Protocol Last Admin: 12/22/16 08:33 Dose: Not Given Hydrochlorothiazide (Microzide) 12.5 mg PO DAILY [facility] Last Admin: 12/22/16 08:33 Dose: Not Given Ceftriaxone Sodium 1 gm/ (Sodium Chloride) 100 mls @ 100 mls/hr IVPB DAILY [facility] Last Admin: 12/22/16 08:33 Dose: 100 mls/hr Insulin Human Regular (Humulin R) 0 units SC ACHS [facility] PRN Reason: Protocol Last Admin: 12/22/16 07:32 Dose: Not Given Ketorolac Tromethamine (Toradol) 30 mg IVP Q6 PRN PRN Reason: Pain, severe (8-10) Last Admin: 12/22/16 04:50 Dose: 30 mg Ketorolac Tromethamine (Toradol) 15 mg IVP Q6 PRN PRN Reason: Pain, moderate (4-7) Last Admin: 12/21/16 02:38 Dose: 15 mg Metformin HCl (Glucophage) 500 mg PO BID [facility] Last Admin: 12/22/16 08:32 Dose: Not Given Primidone (Mysoline) 250 mg PO DAILY [facility] Last Admin: 12/22/16 08:33 Dose: Not Given Propranolol HCl (Inderal La) 120 mg PO DAILY [facility] Last Admin: 12/22/16 08:32 Dose: 120 mg - Labs Labs: 12/22/16 06:10 12/22/16 06:10 PT 11.2 SECONDS (9.6-11.2) 12/22/16 06:10 INR 1.08 (0.92-1.08) 12/22/16 06:10 APTT 26.8 SECONDS (23.3-32.5) 12/21/16 00:10
[2016-12-22] MEDS ORDERED: Etomidate 20 mg/10ml Inj IV ONE (10:47)
[2016-12-22] MEDS ORDERED: ePHEDrine 50 mg/ml Inj ONE (10:51)
[2016-12-22] MEDS ORDERED: Lactated Ringer's 1,000 ML IV ONE ×2 (11:55→15:21)
[2016-12-22] MEDS ORDERED: Propofol 10 mg/ml Inj (20 ML) ONE (12:08)
[2016-12-22] MEDS ORDERED: Sevoflurane - Inhalation Anesthetic Liq (250 ml) ONE (12:28)
--- NOTE | 2016-12-22 12:30 | CP.PCM.PN ---
Subjective - Date & Time of Evaluation Date of Evaluation: 12/22/16 Time of Evaluation: 08:30 - Subjective Subjective: NO COMPLAINTS EXCEPT FOR INJURY RELATED PAIN Objective - Vital Signs/Intake and Output Vital Signs (last 24 hours): Temp Pulse Resp BP Pulse Ox 98.2 F 68 20 167/78 H 96 12/22/16 10:40 12/22/16 10:40 12/22/16 10:40 12/22/16 10:40 12/22/16 10:40 Intake and Output: 12/22/16 12/22/16 06:59 18:59 Intake Total 1100 Output Total 100 Balance 1000 - Medications Medications: Current Medications Alprazolam (Xanax) 0.25 mg PO DAILY [facility] Stop: 12/28/16 09:01 Last Admin: 12/22/16 08:34 Dose: Not Given Atorvastatin Calcium (Lipitor) 10 mg PO DAILY [facility] Last Admin: 12/22/16 08:33 Dose: Not Given Enoxaparin Sodium (Lovenox) 40 mg SC DAILY [facility] PRN Reason: Protocol Last Admin: 12/22/16 08:33 Dose: Not Given Hydrochlorothiazide (Microzide) 12.5 mg PO DAILY [facility] Last Admin: 12/22/16 08:33 Dose: Not Given Ceftriaxone Sodium 1 gm/ (Sodium Chloride) 100 mls @ 100 mls/hr IVPB DAILY [facility] Last Admin: 12/22/16 08:33 Dose: 100 mls/hr Insulin Human Regular (Humulin R) 0 units SC ACHS [facility] PRN Reason: Protocol Last Admin: 12/22/16 07:32 Dose: Not Given Ketorolac Tromethamine (Toradol) 30 mg IVP Q6 PRN PRN Reason: Pain, severe (8-10) Last Admin: 12/22/16 04:50 Dose: 30 mg Ketorolac Tromethamine (Toradol) 15 mg IVP Q6 PRN PRN Reason: Pain, moderate (4-7) Last Admin: 12/21/16 02:38 Dose: 15 mg Metformin HCl (Glucophage) 500 mg PO BID [facility] Last Admin: 12/22/16 08:32 Dose: Not Given Primidone (Mysoline) 250 mg PO DAILY [facility] Last Admin: 12/22/16 08:33 Dose: Not Given Propranolol HCl (Inderal La) 120 mg PO DAILY [facility] Last Admin: 12/22/16 08:32 Dose: 120 mg - Labs Labs: 12/22/16 06:10 12/22/16 06:10 PT 11.2 SECONDS (9.6-11.2) 12/22/16 06:10 INR 1.08 (0.92-1.08) 12/22/16 06:10 APTT 26.8 SECONDS (23.3-32.5) 12/21/16 00:10 - Respiratory Exam Respiratory Exam: Clear to Ausculation Bilateral - Cardiovascular Exam Cardiovascular Exam: REGULAR RHYTHM, +S1, +S2 - Extremities Exam Additional comments: NO LE EDEMA Assessment and Plan - Assessment and Plan (Free Text) Assessment: FALL WITH FRACTURES HYPERTENSION Plan: FOR SURGERY TODAY
[2016-12-22] MEDS ORDERED: Rocuronium 10 mg/ml (5 ml) ONE ×2 (12:52→13:49)
--- NOTE | 2016-12-22 14:39 | CARD ---
APPROVED REPORT EKG Measurement Heart [id number] <Conclusion> Normal sinus rhythm Minimal voltage criteria for LVH, may be normal variant Borderline ECG
[2016-12-22] MEDS ORDERED: Neostigmine Methylsulfate 3mg/3ml Syringe IV ONE (15:22)
--- NOTE | 2016-12-22 16:13 | PCM.SURG1 ---
Surgeon's Initial Post Op Note - Surgeon's Notes Surgeon: [employer] Consultant: JOSE Casas, [facility] linda Lopez Type of Anesthesia: General Endo Anesthesia Administered By: DR Pa/ DR Edis Barros Pre-Operative Diagnosis: Fracture dislocation radial head/comminuted proximal ulna fx Operative Findings: as above. laceratiuion lateral collateral ligament (elbow) Post-Operative Diagnosis: as above Operation Performed: R Radial head replaceemnt. ORIF comminuted R Prox ulna fx. repair lateral collateral ligament. applx posterior splint Specimen/Specimens Removed: callous/bony fragments Estimated Blood Loss: EBL {In ML}: 35 Blood Products Given: N/A Drains Used: No Drains Post-Op Condition: Good Date of Surgery/Procedure: 12/22/16 Time of Surgery/Procedure: 13:20 (time in room/anaesthesia inductioomn time 1155 )
--- NOTE | 2016-12-22 16:24 | PCM.ANESB1 ---
Interscalene Block - Procedure Interscalene Block of Brachial Plexus: This procedure was explained to the patient that it is for post-operative pain management prior to the procedure by the primary anesthesia team. Consent was obtained after a thorough discussion with the patient regarding the benefits and possible complications of local anesthetic block of the Brachial Plexus at the low Interscalene/supraclavicular area. The patient was brought to the Operating Room and standard monitors were applied. Time out was held with the circulating nurse to confirm the correct surgery and appropriate block. After the completion of the procedure, time out was held with the circulating nurse to confirm correct side and appropriate block. The back of the bed was elevaqted to approximately 45 degrees and the patient's head was gently rotated away from the __right____operative shoulder and the anterior scalene groove was carefully palpated. The ultrasound transducer was then applied to the skin in the transverse plane and the brachial plexus was visualized lateral to the subclavian artery and in between the anterior and middle scalene muscles. After identification,the anterior lateral portion of the neck was prepped with Betadine solution three times. At this point, a # 22 gauge Stimuplex 2 inches insulated needle was inserted and directed in a caudal and midline direction. The needle was inserted lateral to the ultrasound transducer in-plane towards the brachial plexus in a lateral- to-medial direction. Needle advancement was performed carefully under direct ultrasound visualization. Once the needle and the needle tip was deemed to be in satisfactory position and After repeated negative aspiration,___30__cc of__.5 % ropivicaine___,____was injected. Under ultrasound guidance the local anesthetics were observed surrounding the grapelike cluster of the brachial plexus away from any vasculature and lung tissue. The needle was removed intact and sterile dressing was applied. The patient had stable vital signs, was conscious and in no apparent distress. At this point the patient was extubated by the primary anesthesia team and was taken to pacu with stable vital signs.
[2016-12-22] MEDS ORDERED: HYDROmorphone 0.5 mg/0.5 ml ISec IVP PRN (16:26)
[2016-12-22] MEDS: Oxycodone/Acetaminophen 5/325 mg Tab PO PRN (20:59)
[2016-12-22] MEDS: Lactated Ringer's 1,000 ML IV SCH (21:03)
[2016-12-22] MEDS: ceFAZolin 1 GM in Sodium Chloride 0.9% 100 ML IVPB SCH (21:03)
[2016-12-23] MEDS: Oxycodone/Acetaminophen 5/325 mg Tab PO PRN ×4 (03:18→20:37)
[2016-12-23] MEDS: Insulin Regular 100 units/ml SC SCH ×4 (06:33→23:06)
[2016-12-23 07:16] LABS: BASO # 0.1 K/uL (0.0-0.2); BASO % 0.7 % (0.0-2.0); EOS # 0.1 K/uL (0.0-0.7); LYMPH % 13.4 % (20.0-40.0); MEAN CELL VOLUME 98.3 fl (81.0-99.0); MEAN CORPUSCULAR HEMOGLOBIN 33.6 pg (27.0-31.0); MEAN CORPUSCULAR HGB CONC 34.1 g/dL (33.0-37.0); MEAN PLATELET VOLUME 7.8 fl (7.2-11.7); MONO # 0.8 K/uL (0.0-0.8); MONO % 10.7 % (0.0-10.0); NEUT # 5.7 K/uL (1.8-7.0); NEUT % 74.2 % (50.0-75.0); NRBC % 0.1 % (0.0-0.0); RED CELL DISTRIBUTION WIDTH 13.6 % (11.5-14.5); WHITE BLOOD COUNT 7.6 K/uL (4.8-10.8)
[2016-12-23 07:42] LABS: ALB/GLOB RATIO 0.9 (1.0-2.1); ALKALINE PHOSPHATASE 86 U/L (38-126); ALT/SGPT 22 U/L (9-52); AST/SGOT 31 U/L (14-36); BILIRUBIN,TOTAL 0.7 mg/dl (0.2-1.3); BLOOD UREA NITROGEN 14 mg/dl (7-17); CALCIUM 8.1 mg/dL (8.4-10.2); CARBON DIOXIDE 25 mmol/L (22-30); CHLORIDE 102 mmol/L (98-107); GFR AFRICAN-AMERICAN > 60; GLUCOSE,RANDOM 125 mg/dL (65-105); POTASSIUM 4.1 MMOL/L (3.6-5.0); SODIUM 138 mmol/l (132-148); TOTAL PROTEIN 5.9 G/DL (6.3-8.2)
[2016-12-23] MEDS: ceFAZolin 1 GM in Sodium Chloride 0.9% 100 ML IVPB SCH (08:53)
[2016-12-23] MEDS: PROPRANOLOL 120 MG PO SCH (08:59)
--- NOTE | 2016-12-23 10:05 | CP.PCM.PN ---
Subjective - Date & Time of Evaluation Date of Evaluation: 12/23/16 Time of Evaluation: 08:45 - Subjective Subjective: SOME PAIN AT SURGICAL SITE NO CHEST PAIN OR SOB Objective - Vital Signs/Intake and Output Vital Signs (last 24 hours): Temp Pulse Resp BP Pulse Ox 98.4 F 73 20 128/66 96 12/23/16 08:19 12/23/16 08:59 12/23/16 08:19 12/23/16 08:59 12/23/16 08:19 - Medications Medications: Current Medications Alprazolam (Xanax) 0.25 mg PO DAILY [facility] Stop: 12/28/16 09:01 Last Admin: 12/22/16 21:57 Dose: 0.25 mg Aspirin (Ecotrin) 81 mg PO BID [facility] Last Admin: 12/23/16 08:56 Dose: 81 mg Atorvastatin Calcium (Lipitor) 10 mg PO DAILY [facility] Last Admin: 12/23/16 08:58 Dose: 10 mg Docusate Sodium (Colace) 100 mg PO BID [facility] Last Admin: 12/23/16 08:56 Dose: 100 mg Hydrochlorothiazide (Microzide) 12.5 mg PO DAILY [facility] Last Admin: 12/23/16 08:59 Dose: 12.5 mg Lactated Ringer's (Lactated Ringer's) 1,000 mls @ 50 mls/hr IV .Q20H [facility] Last Admin: 12/22/16 21:03 Dose: 50 mls/hr Ceftriaxone Sodium 1,000 mg/ (Sodium Chloride) 100 mls @ 100 mls/hr IVPB DAILY [facility] Insulin Human Regular (Humulin R) 0 units SC ACHS [facility] PRN Reason: Protocol Last Admin: 12/23/16 06:33 Dose: Not Given Ketorolac Tromethamine (Toradol) 30 mg IVP Q6 PRN PRN Reason: Pain, severe (8-10) Last Admin: 12/23/16 06:14 Dose: 30 mg Ketorolac Tromethamine (Toradol) 15 mg IVP Q6 PRN PRN Reason: Pain, moderate (4-7) Last Admin: 12/21/16 02:38 Dose: 15 mg Metformin HCl (Glucophage) 500 mg PO BID [facility] Last Admin: 12/23/16 08:57 Dose: 500 mg Ondansetron HCl (Zofran Inj) 4 mg IVP Q6 PRN PRN Reason: Nausea/Vomiting Oxycodone/Acetaminophen (Percocet 5/325 Mg Tab) 2 tab PO Q4 PRN PRN Reason: Pain, moderate (4-7) Stop: 12/25/16 17:06 Last Admin: 12/23/16 09:59 Dose: 2 tab Primidone (Mysoline) 250 mg PO DAILY [facility] Last Admin: 12/23/16 09:00 Dose: 250 mg Propranolol HCl (Inderal La) 120 mg PO DAILY [facility] Last Admin: 12/23/16 08:59 Dose: 120 mg - Labs Labs: 12/23/16 06:20 12/23/16 06:20 PT 11.2 SECONDS (9.6-11.2) 12/22/16 06:10 INR 1.08 (0.92-1.08) 12/22/16 06:10 APTT 26.8 SECONDS (23.3-32.5) 12/21/16 00:10 - Respiratory Exam Respiratory Exam: Clear to Ausculation Bilateral - Cardiovascular Exam Cardiovascular Exam: REGULAR RHYTHM, +S1, +S2 - Extremities Exam Additional comments: NO LE EDEMA - Additional Findings Additional findings: OR NOTES REVIEWED Assessment and Plan - Assessment and Plan (Free Text) Assessment: SURGICAL REPAIR OF RIGHT RADIAL AND ULNA FRACTURES HYPERTENSIOM HYPERLIPIDEMIA TYPE 2 DM Plan: CONTINUE ASPIRIN, PROPANOLOL, ATORVASTATIN AND GLUCOPHAGE
--- NOTE | 2016-12-23 11:45 | CP.PCM.PN ---
Subjective - Date & Time of Evaluation Date of Evaluation: 12/23/16 Time of Evaluation: 11:30 - Subjective Subjective: Hospitalist Progress Note (Patient was seen and examined at 11:30 AM 12/23/16 [id number] [phone] with Son, Daughter present) 86 year old male who was admitted 12/21/16 s/p falling down 15 flight of stairs. X Rays here at [facility] indicated fracture of the right radial head, right proximal ulna, and right wrist fracture. She underwent Right Radial Head Transplant and Right Proximal Ulnar ORIF by Orthopedics Dr. Mares 12/22/16. Dr. Mares to plan for Right Wrist Surgery at a later time. Upon ROS: Pain in Right Upper Extremity is controlled Has not had bowel movement today NO other complaints: NO chest pain, NO palpitations, NO SOB/Cough/Wheezing, NO dysphagia/odynophagia , NO abdominal pain, NO n/v/d/c, NO burning/pain with urination, NO lightheadedness/dizziness, NO headaches, NO new changes in vision/eye pain, NO new changes in hearing/ear pain, NO paresthesias HEENT: NCA, EOMI, PERRLA, NO cervical lymphadenopathy, NO thyromegaly, Oral Mucosa and Nasal Turbinates are dry, NO Pharygeal Erythema/Exudate Cardiology: Systolic Ejection Murmur heard loudest along left lower sternal border Respiratory: CTA B/L, NO R/R/W GI: BSx4, Soft, NT, Central Obesity, NO HSM, NO Guarding/Rebound Tenderness Ext: Right Arm in soft cast, Pulses are strong and equal in the bilateral LE and strong in the Left UE, Capillary Refill is 2 seconds in all extremities, NO edema in Left UE and B/L LE, Sensation in all extremities is intact and patient able to move all of the fingers of the Right UE Neuro: CN II through XII are grossly intact Assessement and Plan: 1). Right Elbow (Radial Head and Proximal Ulna)/Right Wrist Fracture Post Op Day #[address] Mares Toradol 30 mg IV Q6H PRN Pain 8 to 10 Toradol 15 mg IV Q6H PRN Pain 4 to 7 2). Suspected UTI UA cloudy with LE +, WBC 45 and many bacteria however Urine Culture 12/21/16 did not show any growth therefore the Rocephin was discontinued NO complaints of burning/pain with urination 3). Dehydration Resolved 4). Neutrophilic Leukocytosis Most likely reactive WBC has normalized 5). DM II with Hyperglycemia Reguar insulin sliding scale with accuchecks Cardiac and Diabetic diet Metformin 500 mg PO 2x/day Controlled 6). HTN Propranol 120mg PO daily HCTZ 12.5 mg PO 1x/day Controlled 7).Essential Tremors Primidone 250 mg PO 1x/day Propranolol 120 mg PO 1x/day 8). Prophylactic Measures SCDs ASA 81 mg PO 2x/day Colace 100 mg PO 2x/day Zofran 4 mg IV Q6H PRN N/V Xanax 0.25 mg PO 1x/day LR @ 50 mL/hr Objective - Vital Signs/Intake and Output Vital Signs (last 24 hours): Temp Pulse Resp BP Pulse Ox 98.4 F 73 20 128/66 96 12/23/16 08:19 12/23/16 08:59 12/23/16 08:19 12/23/16 08:59 12/23/16 08:19 - Medications Medications: Current Medications Alprazolam (Xanax) 0.25 mg PO DAILY [facility] Stop: 12/28/16 09:01 Last Admin: 12/22/16 21:57 Dose: 0.25 mg Aspirin (Ecotrin) 81 mg PO BID [facility] Last Admin: 12/23/16 08:56 Dose: 81 mg Atorvastatin Calcium (Lipitor) 10 mg PO DAILY [facility] Last Admin: 12/23/16 08:58 Dose: 10 mg Docusate Sodium (Colace) 100 mg PO BID [facility] Last Admin: 12/23/16 08:56 Dose: 100 mg Hydrochlorothiazide (Microzide) 12.5 mg PO DAILY [facility] Last Admin: 12/23/16 08:59 Dose: 12.5 mg Lactated Ringer's (Lactated Ringer's) 1,000 mls @ 50 mls/hr IV .Q20H [facility] Last Admin: 12/22/16 21:03 Dose: 50 mls/hr Ceftriaxone Sodium 1,000 mg/ (Sodium Chloride) 100 mls @ 100 mls/hr IVPB DAILY [facility] Insulin Human Regular (Humulin R) 0 units SC ACHS [facility] PRN Reason: Protocol Last Admin: 12/23/16 06:33 Dose: Not Given Ketorolac Tromethamine (Toradol) 30 mg IVP Q6 PRN PRN Reason: Pain, severe (8-10) Last Admin: 12/23/16 06:14 Dose: 30 mg Ketorolac Tromethamine (Toradol) 15 mg IVP Q6 PRN PRN Reason: Pain, moderate (4-7) Last Admin: 12/21/16 02:38 Dose: 15 mg Metformin HCl (Glucophage) 500 mg PO BID [facility] Last Admin: 12/23/16 08:57 Dose: 500 mg Ondansetron HCl (Zofran Inj) 4 mg IVP Q6 PRN PRN Reason: Nausea/Vomiting Oxycodone/Acetaminophen (Percocet 5/325 Mg Tab) 2 tab PO Q4 PRN PRN Reason: Pain, moderate (4-7) Stop: 12/25/16 17:06 Last Admin: 12/23/16 09:59 Dose: 2 tab Primidone (Mysoline) 250 mg PO DAILY [facility] Last Admin: 12/23/16 09:00 Dose: 250 mg Propranolol HCl (Inderal La) 120 mg PO DAILY [facility] Last Admin: 12/23/16 08:59 Dose: 120 mg - Labs Labs: 12/23/16 06:20 12/23/16 06:20 PT 11.2 SECONDS (9.6-11.2) 12/22/16 06:10 INR 1.08 (0.92-1.08) 12/22/16 06:10 APTT 26.8 SECONDS (23.3-32.5) 12/21/16 00:10
--- NOTE | 2016-12-23 15:35 | RAD ---
PROCEDURE: Fluoroscopy greater than 1 hour. HISTORY: RIGHT ELBOW COMPARISON: None TECHNIQUE: Standard FINDINGS: Submitted images from the current procedure: 16. IMPRESSION: Total fluoroscopic time (continuous mode) utilized during the procedure: 29.3 seconds.
[2016-12-23] MEDS: Lactated Ringer's 1,000 ML IV SCH (20:37)
[2016-12-24] MEDS: Oxycodone/Acetaminophen 5/325 mg Tab PO PRN ×4 (04:47→18:13)
[2016-12-24] MEDS: Insulin Regular 100 units/ml SC SCH ×4 (06:34→22:12)
[2016-12-24 07:42] LABS: BASO % 0.5 % (0.0-2.0); EOS # 0.1 K/uL (0.0-0.7); EOS % 2.2 % (0.0-4.0); HEMATOCRIT 29.6 % (34.0-47.0); LYMPH # 0.9 K/uL (1.0-4.3); LYMPH % 14.2 % (20.0-40.0); MEAN CORPUSCULAR HEMOGLOBIN 33.1 pg (27.0-31.0); MEAN CORPUSCULAR HGB CONC 32.6 g/dL (33.0-37.0); MEAN PLATELET VOLUME 8.1 fl (7.2-11.7); MONO # 0.8 K/uL (0.0-0.8); MONO % 11.9 % (0.0-10.0); NEUT # 4.7 K/uL (1.8-7.0); NEUT % 71.2 % (50.0-75.0); RED CELL DISTRIBUTION WIDTH 13.4 % (11.5-14.5); WHITE BLOOD COUNT 6.6 K/uL (4.8-10.8)
[2016-12-24 07:56] LABS: BLOOD UREA NITROGEN 14 mg/dl (7-17); CARBON DIOXIDE 22 mmol/L (22-30); CHLORIDE 102 mmol/L (98-107); GFR AFRICAN-AMERICAN > 60; GLUCOSE,RANDOM 103 mg/dL (65-105); SODIUM 136 mmol/l (132-148)
[2016-12-24 07:59] LABS: MEAN CELL VOLUME 101.4 fl (81.0-99.0)
[2016-12-24] MEDS: PROPRANOLOL 120 MG PO SCH (09:02)
[2016-12-24] MEDS: Lactated Ringer's 1,000 ML IV SCH (09:15)
--- NOTE | 2016-12-24 12:39 | CP.PCM.PN ---
Subjective - Date & Time of Evaluation Date of Evaluation: 12/24/16 Time of Evaluation: 12:20 - Subjective Subjective: Hospitalist Progress Note (Patient was seen and examined at 12:20 PM 12/24/16 [id number] [phone]) 86 year old male who was admitted 12/21/16 s/p falling down 15 flight of stairs. X Rays here at [facility] indicated fracture of the right radial head, right proximal ulna, and right wrist fracture. She underwent Right Radial Head Transplant and Right Proximal Ulnar ORIF by Orthopedics Dr. Mares 12/22/16. Dr. Mares to plan for Right Wrist Surgery (Right Distal Radial Fracture) at a later time. Upon ROS: The Right Upper Arm and Elbow are "Sore: NO bowel movement since the surgery and has not had much of an appetite NO other complaints: NO chest pain, NO palpitations, NO SOB/Cough/Wheezing, NO dysphagia/odynophagia , NO abdominal pain, NO n/v/d/c, NO burning/pain with urination, NO lightheadedness/dizziness, NO headaches, NO new changes in vision/eye pain, NO new changes in hearing/ear pain, NO paresthesias HEENT: NCA, EOMI, PERRLA, NO cervical lymphadenopathy, NO thyromegaly, Oral Mucosa and Nasal Turbinates are dry, NO Pharygeal Erythema/Exudate Cardiology: Systolic Ejection Murmur heard loudest along left lower sternal border Respiratory: CTA B/L, NO R/R/W GI: BSx4, Soft, NT, Central Obesity, NO HSM, NO Guarding/Rebound Tenderness Ext: Right Arm in soft cast, Pulses are strong and equal in the bilateral LE and strong in the Left UE, Capillary Refill is 2 seconds in all extremities, NO edema in Left UE and B/L LE, Sensation in all extremities is intact and patient able to move all of the fingers of the Right UE Neuro: CN II through XII are grossly intact Assessement and Plan: 1). Right Elbow (Radial Head and Proximal Ulna)/Right Wrist (Right Distal Radial ) Fracture Post Op Day #[address] Mares Toradol 30 mg IV Q6H PRN Pain 8 to 10 Toradol 15 mg IV Q6H PRN Pain 4 to 7 Percocet 5/325 mg PO PRN Moderate Pain 2). Suspected UTI UA cloudy with LE +, WBC 45 and many bacteria however Urine Culture 12/21/16 did not show any growth therefore the Rocephin was discontinued NO complaints of burning/pain with urination 3). Dehydration Resolved 4). Neutrophilic Leukocytosis Most likely reactive WBC has normalized 5). DM II with Hyperglycemia Reguar insulin sliding scale with accuchecks Cardiac and Diabetic diet Metformin 500 mg PO 2x/day Controlled 6). HTN Propranol 120mg PO daily HCTZ 12.5 mg PO 1x/day Controlled 7).Essential Tremors Primidone 250 mg PO 1x/day Propranolol 120 mg PO 1x/day 8). Prophylactic Measures SCDs ASA 81 mg PO 2x/day Colace 100 mg PO 2x/day Zofran 4 mg IV Q6H PRN N/V Xanax 0.25 mg PO 1x/day LR @ 50 mL/hr I spoke with Contribution Solicitor Ricarda Buchanan and ok from Orthopedic standpoint for transfer to TCU. I spoke with Clinical Pharmacy Coordinator Domi (ext [phone]) and awaiting insurance approval for TCU bed and once obtained patient may be transferred to TCU and this was conveyed to patient and son. Objective - Vital Signs/Intake and Output Vital Signs (last 24 hours): Temp Pulse Resp BP Pulse Ox 98.3 F 64 20 104/63 94 L 12/24/16 12:28 12/24/16 12:28 12/24/16 12:28 12/24/16 12:28 12/24/16 12:28 - Medications Medications: Current Medications Alprazolam (Xanax) 0.25 mg PO DAILY [facility] Stop: 12/28/16 09:01 Last Admin: 12/24/16 09:10 Dose: 0.25 mg Aspirin (Ecotrin) 81 mg PO BID [facility] Last Admin: 12/24/16 09:02 Dose: 81 mg Atorvastatin Calcium (Lipitor) 10 mg PO DAILY [facility] Last Admin: 12/24/16 09:02 Dose: 10 mg Docusate Sodium (Colace) 100 mg PO BID [facility] Last Admin: 12/24/16 09:02 Dose: 100 mg Hydrochlorothiazide (Microzide) 12.5 mg PO DAILY [facility] Last Admin: 12/24/16 09:02 Dose: 12.5 mg Lactated Ringer's (Lactated Ringer's) 1,000 mls @ 50 mls/hr IV .Q20H [facility] Last Admin: 12/24/16 09:15 Dose: 50 mls/hr Insulin Human Regular (Humulin R) 0 units SC ACHS [facility] PRN Reason: Protocol Last Admin: 12/24/16 06:34 Dose: Not Given Ketorolac Tromethamine (Toradol) 30 mg IVP Q6 PRN PRN Reason: Pain, severe (8-10) Last Admin: 12/23/16 06:14 Dose: 30 mg Ketorolac Tromethamine (Toradol) 15 mg IVP Q6 PRN PRN Reason: Pain, moderate (4-7) Last Admin: 12/21/16 02:38 Dose: 15 mg Metformin HCl (Glucophage) 500 mg PO BID [facility] Last Admin: 12/24/16 09:01 Dose: 500 mg Ondansetron HCl (Zofran Inj) 4 mg IVP Q6 PRN PRN Reason: Nausea/Vomiting Oxycodone/Acetaminophen (Percocet 5/325 Mg Tab) 2 tab PO Q4 PRN PRN Reason: Pain, moderate (4-7) Stop: 12/25/16 17:06 Last Admin: 12/24/16 09:43 Dose: 2 tab Primidone (Mysoline) 250 mg PO DAILY [facility] Last Admin: 12/24/16 09:02 Dose: 250 mg Propranolol HCl (Inderal La) 120 mg PO DAILY [facility] Last Admin: 12/24/16 09:02 Dose: 120 mg - Labs Labs: 12/24/16 06:20 12/24/16 06:20 PT 11.2 SECONDS (9.6-11.2) 12/22/16 06:10 INR 1.08 (0.92-1.08) 12/22/16 06:10 APTT 26.8 SECONDS (23.3-32.5) 12/21/16 00:10
--- NOTE | 2016-12-24 13:20 | CP.PCM.PN ---
Subjective - Date & Time of Evaluation Date of Evaluation: 12/24/16 Time of Evaluation: 08:45 - Subjective Subjective: NO CHEST PAIN OR SOB Objective - Vital Signs/Intake and Output Vital Signs (last 24 hours): Temp Pulse Resp BP Pulse Ox 98.3 F 64 20 104/63 94 L 12/24/16 12:28 12/24/16 12:28 12/24/16 12:28 12/24/16 12:28 12/24/16 12:28 - Medications Medications: Current Medications Alprazolam (Xanax) 0.25 mg PO DAILY [facility] Stop: 12/28/16 09:01 Last Admin: 12/24/16 09:10 Dose: 0.25 mg Aspirin (Ecotrin) 81 mg PO BID [facility] Last Admin: 12/24/16 09:02 Dose: 81 mg Atorvastatin Calcium (Lipitor) 10 mg PO DAILY [facility] Last Admin: 12/24/16 09:02 Dose: 10 mg Docusate Sodium (Colace) 100 mg PO BID [facility] Last Admin: 12/24/16 09:02 Dose: 100 mg Hydrochlorothiazide (Microzide) 12.5 mg PO DAILY [facility] Last Admin: 12/24/16 09:02 Dose: 12.5 mg Lactated Ringer's (Lactated Ringer's) 1,000 mls @ 50 mls/hr IV .Q20H [facility] Last Admin: 12/24/16 09:15 Dose: 50 mls/hr Insulin Human Regular (Humulin R) 0 units SC ACHS [facility] PRN Reason: Protocol Last Admin: 12/24/16 06:34 Dose: Not Given Ketorolac Tromethamine (Toradol) 30 mg IVP Q6 PRN PRN Reason: Pain, severe (8-10) Last Admin: 12/23/16 06:14 Dose: 30 mg Ketorolac Tromethamine (Toradol) 15 mg IVP Q6 PRN PRN Reason: Pain, moderate (4-7) Last Admin: 12/21/16 02:38 Dose: 15 mg Metformin HCl (Glucophage) 500 mg PO BID [facility] Last Admin: 12/24/16 09:01 Dose: 500 mg Ondansetron HCl (Zofran Inj) 4 mg IVP Q6 PRN PRN Reason: Nausea/Vomiting Oxycodone/Acetaminophen (Percocet 5/325 Mg Tab) 2 tab PO Q4 PRN PRN Reason: Pain, moderate (4-7) Stop: 12/25/16 17:06 Last Admin: 12/24/16 09:43 Dose: 2 tab Primidone (Mysoline) 250 mg PO DAILY [facility] Last Admin: 12/24/16 09:02 Dose: 250 mg Propranolol HCl (Inderal La) 120 mg PO DAILY [facility] Last Admin: 12/24/16 09:02 Dose: 120 mg - Labs Labs: 12/24/16 06:20 12/24/16 06:20 PT 11.2 SECONDS (9.6-11.2) 12/22/16 06:10 INR 1.08 (0.92-1.08) 12/22/16 06:10 APTT 26.8 SECONDS (23.3-32.5) 12/21/16 00:10 - Respiratory Exam Respiratory Exam: Clear to Ausculation Bilateral - Cardiovascular Exam Cardiovascular Exam: REGULAR RHYTHM, +S1, +S2 - Extremities Exam Additional comments: NO LE EDEMA - Additional Findings Additional findings: [employer] NSR Assessment and Plan - Assessment and Plan (Free Text) Assessment: FALL WITH FRACTURES OF THE RIGHT RADIUS AND ULNA HYPERTENSION HYPERLIPIDEMIA Plan: CONTINUE PROPRANOLOL, ASPIRIN, HCTZ AND ATORVASTATIN
--- NOTE | 2016-12-24 13:48 | CP.PCM.PN ---
Subjective - Date & Time of Evaluation Date of Evaluation: 12/24/16 Time of Evaluation: 13:45 - Subjective Subjective: S- pt comfortable with minimal post op discomfort Objective - Vital Signs/Intake and Output Vital Signs (last 24 hours): Temp Pulse Resp BP Pulse Ox 98.3 F 64 20 104/63 94 L 12/24/16 12:28 12/24/16 12:28 12/24/16 12:28 12/24/16 12:28 12/24/16 12:28 - Medications Medications: Current Medications Alprazolam (Xanax) 0.25 mg PO DAILY [facility] Stop: 12/28/16 09:01 Last Admin: 12/24/16 09:10 Dose: 0.25 mg Aspirin (Ecotrin) 81 mg PO BID [facility] Last Admin: 12/24/16 09:02 Dose: 81 mg Atorvastatin Calcium (Lipitor) 10 mg PO DAILY [facility] Last Admin: 12/24/16 09:02 Dose: 10 mg Docusate Sodium (Colace) 100 mg PO BID [facility] Last Admin: 12/24/16 09:02 Dose: 100 mg Hydrochlorothiazide (Microzide) 12.5 mg PO DAILY [facility] Last Admin: 12/24/16 09:02 Dose: 12.5 mg Lactated Ringer's (Lactated Ringer's) 1,000 mls @ 50 mls/hr IV .Q20H [facility] Last Admin: 12/24/16 09:15 Dose: 50 mls/hr Insulin Human Regular (Humulin R) 0 units SC ACHS [facility] PRN Reason: Protocol Last Admin: 12/24/16 06:34 Dose: Not Given Ketorolac Tromethamine (Toradol) 30 mg IVP Q6 PRN PRN Reason: Pain, severe (8-10) Last Admin: 12/23/16 06:14 Dose: 30 mg Ketorolac Tromethamine (Toradol) 15 mg IVP Q6 PRN PRN Reason: Pain, moderate (4-7) Last Admin: 12/21/16 02:38 Dose: 15 mg Metformin HCl (Glucophage) 500 mg PO BID [facility] Last Admin: 12/24/16 09:01 Dose: 500 mg Ondansetron HCl (Zofran Inj) 4 mg IVP Q6 PRN PRN Reason: Nausea/Vomiting Oxycodone/Acetaminophen (Percocet 5/325 Mg Tab) 2 tab PO Q4 PRN PRN Reason: Pain, moderate (4-7) Stop: 12/25/16 17:06 Last Admin: 12/24/16 09:43 Dose: 2 tab Primidone (Mysoline) 250 mg PO DAILY [facility] Last Admin: 12/24/16 09:02 Dose: 250 mg Propranolol HCl (Inderal La) 120 mg PO DAILY [facility] Last Admin: 12/24/16 09:02 Dose: 120 mg - Labs Labs: 12/24/16 06:20 12/24/16 06:20 PT 11.2 SECONDS (9.6-11.2) 12/22/16 06:10 INR 1.08 (0.92-1.08) 12/22/16 06:10 APTT 26.8 SECONDS (23.3-32.5) 12/21/16 00:10 - Skin Additional comments: Objective systemic- wnl Muscloskeltalstance/gait- defrred pt OOB in chair with R upper ext elevated N/V intact no gross defciits Assessment and Plan - Assessment and Plan (Free Text) Assessment: A- s/p multiuple trauma s/p R rdaial head replaceemnt'c/p ORIF ulna fx displaced comminuted path fx distal radius P- satisfactory ORIF R ulna and R radial head replacement pt s/p displaced distal radius fx, comminuted case discussed AT LENGTH with son and erighter- distal radius fx to be addressed when pt is stabilized
[2016-12-25] MEDS: Lactated Ringer's 1,000 ML IV SCH (04:45)
[2016-12-25] MEDS: Insulin Regular 100 units/ml SC SCH ×2 (06:45→12:28)
[2016-12-25] MEDS: Oxycodone/Acetaminophen 5/325 mg Tab PO PRN ×2 (06:46→13:25)
--- NOTE | 2016-12-25 07:33 | CP.PCM.PN ---
Subjective - Date & Time of Evaluation Date of Evaluation: 12/25/16 Time of Evaluation: 07:25 - Subjective Subjective: S- pt still with minimal post op discomfort/exhibiting dysarthrisa at the time of encounter\ Objective - Vital Signs/Intake and Output Vital Signs (last 24 hours): Temp Pulse Resp BP Pulse Ox 99 F 76 19 148/77 95 12/25/16 04:14 12/25/16 04:14 12/25/16 04:14 12/25/16 04:14 12/25/16 04:14 - Medications Medications: Current Medications Alprazolam (Xanax) 0.25 mg PO DAILY [facility] Stop: 12/28/16 09:01 Last Admin: 12/24/16 09:10 Dose: 0.25 mg Aspirin (Ecotrin) 81 mg PO BID [facility] Last Admin: 12/24/16 16:49 Dose: 81 mg Atorvastatin Calcium (Lipitor) 10 mg PO DAILY [facility] Last Admin: 12/24/16 09:02 Dose: 10 mg Docusate Sodium (Colace) 100 mg PO BID [facility] Last Admin: 12/24/16 16:47 Dose: 100 mg Hydrochlorothiazide (Microzide) 12.5 mg PO DAILY [facility] Last Admin: 12/24/16 09:02 Dose: 12.5 mg Lactated Ringer's (Lactated Ringer's) 1,000 mls @ 50 mls/hr IV .Q20H [facility] Last Admin: 12/25/16 04:45 Dose: 50 mls/hr Insulin Human Regular (Humulin R) 0 units SC ACHS [facility] PRN Reason: Protocol Last Admin: 12/25/16 06:45 Dose: Not Given Ketorolac Tromethamine (Toradol) 30 mg IVP Q6 PRN PRN Reason: Pain, severe (8-10) Last Admin: 12/23/16 06:14 Dose: 30 mg Ketorolac Tromethamine (Toradol) 15 mg IVP Q6 PRN PRN Reason: Pain, moderate (4-7) Last Admin: 12/21/16 02:38 Dose: 15 mg Metformin HCl (Glucophage) 500 mg PO BID [facility] Last Admin: 12/24/16 16:47 Dose: 500 mg Ondansetron HCl (Zofran Inj) 4 mg IVP Q6 PRN PRN Reason: Nausea/Vomiting Oxycodone/Acetaminophen (Percocet 5/325 Mg Tab) 2 tab PO Q4 PRN PRN Reason: Pain, moderate (4-7) Stop: 12/25/16 17:06 Last Admin: 12/25/16 06:46 Dose: 2 tab Primidone (Mysoline) 250 mg PO DAILY [facility] Last Admin: 12/24/16 09:02 Dose: 250 mg Propranolol HCl (Inderal La) 120 mg PO DAILY [facility] Last Admin: 12/24/16 09:02 Dose: 120 mg - Labs Labs: 12/24/16 06:20 12/24/16 06:20 PT 11.2 SECONDS (9.6-11.2) 12/22/16 06:10 INR 1.08 (0.92-1.08) 12/22/16 06:10 APTT 26.8 SECONDS (23.3-32.5) 12/21/16 00:10 - Additional Findings Additional findings: Objective Msuculposkeltal stance/gait- deferred pt with elevation of R upper ext N/V intact Xrays- reveal acceptable posiitoin of construct/ radial head replacemnt in accpetable position /ulnar plate successfully applied,a bit proud in apposition to ulna/olecranon Assessment and Plan - Assessment and Plan (Free Text) Assessment: A- s/p multiple trauma withs/p Orif prox ulna fx pt with displaced cominuted distal radius fx/ with comminution displacement distal radius fx, P- to OR , when swelling decreases, and pt is medically clear then pt is to OR for definitve management of the distal radius fx
[2016-12-25 07:34] LABS: BLOOD UREA NITROGEN 16 mg/dl (7-17); CALCIUM 8.4 mg/dL (8.4-10.2); CARBON DIOXIDE 24 mmol/L (22-30); CHLORIDE 99 mmol/L (98-107); GFR AFRICAN-AMERICAN > 60; GLUCOSE,RANDOM 97 mg/dL (65-105); POTASSIUM 4.3 MMOL/L (3.6-5.0); SODIUM 137 mmol/l (132-148)
[2016-12-25 08:17] LABS: BASO % 0.5 % (0.0-2.0); EOS # 0.2 K/uL (0.0-0.7); EOS % 2.5 % (0.0-4.0); HEMATOCRIT 32.9 % (34.0-47.0); LYMPH # 1.1 K/uL (1.0-4.3); LYMPH % 14.9 % (20.0-40.0); MEAN CELL VOLUME 101.6 fl (81.0-99.0); MEAN CORPUSCULAR HEMOGLOBIN 33.4 pg (27.0-31.0); MEAN CORPUSCULAR HGB CONC 32.9 g/dL (33.0-37.0); MEAN PLATELET VOLUME 8.2 fl (7.2-11.7); MONO # 0.9 K/uL (0.0-0.8); MONO % 13.1 % (0.0-10.0); NEUT # 4.9 K/uL (1.8-7.0); NRBC % 0.1 % (0.0-0.0); RED CELL DISTRIBUTION WIDTH 13.6 % (11.5-14.5)
[2016-12-25] MEDS: PROPRANOLOL 120 MG PO SCH (09:18)
--- NOTE | 2016-12-25 10:30 | CP.PCM.DIS ---
Provider - Provider Date of Admission: 12/21/16 10:15 Attending physician: Dax Cook Consults: Ortho: Dr Cabello Cardio: Dr rivera Time Spent in preparation of Discharge (in minutes): 30 Diagnosis - Discharge Diagnosis (1) Elbow fracture Status: Acute (2) Wrist fracture Status: Acute (3) Essential tremor Status: Chronic (4) DM type 2 (diabetes mellitus, type 2) Status: Chronic (5) HTN (hypertension) Status: Chronic Hospital Course - Lab Results Lab Results: Micro Results 12/21/16 17:23 Urine,Clean Catch Urine Culture - Final No Growth (<1,000 CFU/ML) Most Recent Lab Values WBC 7.0 K/uL (4.8-10.8) 12/25/16 06:25 RBC 3.24 Mil/uL (3.80-5.20) L 12/25/16 06:25 Hgb 10.8 g/dL (12.0-16.0) L 12/25/16 06:25 Hct 32.9 % (34.0-47.0) L 12/25/16 06:25 MCV 101.6 fl (81.0-99.0) H 12/25/16 06:25 MCH 33.4 pg (27.0-31.0) H 12/25/16 06:25 MCHC 32.9 g/dL (33.0-37.0) L 12/25/16 06:25 RDW 13.6 % (11.5-14.5) 12/25/16 06:25 Plt Count 180 K/uL (130-400) 12/25/16 06:25 MPV 8.2 fl (7.2-11.7) 12/25/16 06:25 Neut % (Auto) 69.0 % (50.0-75.0) 12/25/16 06:25 Lymph % (Auto) 14.9 % (20.0-40.0) L 12/25/16 06:25 [place]wsley % (Auto) 13.1 % (0.0-10.0) H 12/25/16 06:25 Eos % (Auto) 2.5 % (0.0-4.0) 12/25/16 06:25 Baso % (Auto) 0.5 % (0.0-2.0) 12/25/16 06:25 Neut # 4.9 K/uL (1.8-7.0) 12/25/16 06:25 Lymph # 1.1 K/uL (1.0-4.3) 12/25/16 06:25 Owsley # 0.9 K/uL (0.0-0.8) H 12/25/16 06:25 Eos # 0.2 K/uL (0.0-0.7) 12/25/16 06:25 Baso # 0.0 K/uL (0.0-0.2) 12/25/16 06:25 Neutrophils % (Manual) 87 % (42-75) H 12/21/16 23:52 Lymphocytes % (Manual) 7 % (20-50) L 12/21/16 23:52 Reactive Lymphs % 3 % (0-0) H 12/21/16 23:52 Monocytes % (Manual) 3 % (0-10) 12/21/16 23:52 Platelet Estimate Normal (NORMAL) 12/21/16 23:52 PT 11.2 SECONDS (9.6-11.2) 12/22/16 06:10 INR 1.08 (0.92-1.08) 12/22/16 06:10 APTT 26.8 SECONDS (23.3-32.5) 12/21/16 00:10 Sodium 137 mmol/l (132-148) 12/25/16 06:25 Potassium 4.3 MMOL/L (3.6-5.0) 12/25/16 06:25 Chloride 99 mmol/L (98-107) 12/25/16 06:25 Carbon Dioxide 24 mmol/L (22-30) 12/25/16 06:25 Anion Gap 17 (10-20) 12/25/16 06:25 BUN 16 mg/dl (7-17) 12/25/16 06:25 Creatinine 0.8 mg/dL (0.7-1.2) 12/25/16 06:25 Est GFR ( Amer) > 60 12/25/16 06:25 Est GFR (Non-Af Amer) > 60 12/25/16 06:25 POC Glucose (mg/dL) 102 mg/dL (65-110) 12/25/16 05:17 Random Glucose 97 mg/dL (65-105) 12/25/16 06:25 Calcium 8.4 mg/dL (8.4-10.2) 12/25/16 06:25 Total Bilirubin 0.7 mg/dl (0.2-1.3) 12/23/16 06:20 AST 31 U/L (14-36) 12/23/16 06:20 ALT 22 U/L (9-52) 12/23/16 06:20 Alkaline Phosphatase 86 U/L (38-126) 12/23/16 06:20 Total Protein 5.9 G/DL (6.3-8.2) L 12/23/16 06:20 Albumin 2.8 g/dL (3.5-5.0) L 12/23/16 06:20 Globulin 3.0 gm/dL (2.2-3.9) 12/23/16 06:20 Albumin/Globulin Ratio 0.9 (1.0-2.1) L 12/23/16 06:20 Urine Color Tawnya (YELLOW) 12/21/16 04:05 Urine Clarity Cloudy (Clear) 12/21/16 04:05 Urine pH 5.0 (5.0-8.0) 12/21/16 04:05 Ur Specific [place] 1.025 (1.003-1.030) 12/21/16 04:05 Urine Protein 30 mg/dL (NEGATIVE) 12/21/16 04:05 Urine Glucose (UA) Neg mg/dL (Normal) 12/21/16 04:05 Urine Ketones Negative mg/dL (NEGATIVE) 12/21/16 04:05 Urine Blood Negative (NEGATIVE) 12/21/16 04:05 Urine Nitrate Negative (NEGATIVE) 12/21/16 04:05 Urine Bilirubin Moderate (NEGATIVE) 12/21/16 04:05 Urine Urobilinogen 0.2-1.0 mg/dL (0.2-1.0) 12/21/16 04:05 Ur Leukocyte Esterase Large Mercedes/uL (Negative) 12/21/16 04:05 Urine RBC (Auto) 10 /hpf (0-3) H 12/21/16 04:05 Urine Microscopic WBC 45 /hpf (0-5) H 12/21/16 04:05 Ur Squamous Epith Cells 4 /hpf (0-5) 12/21/16 04:05 Urine Bacteria Many (<OCC) H 12/21/16 04:05 Hyaline Casts >20 /hpf (0-2) H 12/21/16 04:05 Blood Type O POSITIVE 12/20/16 23:59 Blood Type Confirm O POSITIVE 12/21/16 01:14 Antibody Screen Negative 12/20/16 23:59 Crossmatch See Detail 12/20/16 23:59 BBK History Checked No verified bt 12/20/16 23:59 - Hospital Course Hospital Course: 86 year old male who was admitted 12/21/16 s/p falling down 15 flight of stairs. X Rays here at [facility] indicated fracture of the right radial head, right proximal ulna, and right wrist fracture. She underwent Right Radial Head Transplant and Right Proximal Ulnar ORIF by Orthopedics Dr. Mares 12/22/16. Dr. Mares to plan for Right Wrist Surgery (Right Distal Radial Fracture) at a later time. 1). Right Elbow (Radial Head and Proximal Ulna)/Right Wrist (Right Distal Radial ) Fracture s/p Right Ulnar ORIF Orthopedics Dr. Cabello Pain mgt Percocet 5/325 mg PO PRN Moderate Pain PT/OT consult will transfer to TCU for further Rehab Plan for wrist surgery whe swelling is down 2). Suspected UTI UA cloudy with LE +, WBC 45 and many bacteria however Urine Culture 12/21/16 did not show any growth therefore the Rocephin was discontinued NO complaints of burning/pain with urination 3). Dehydration Resolved 4). Neutrophilic Leukocytosis Most likely reactive WBC has normalized 5). DM II with Hyperglycemia Regular insulin sliding scale with accuchecks Cardiac and Diabetic diet Metformin 500 mg PO 2x/day 6). HTN Propranol 120mg PO daily HCTZ 12.5 mg PO 1x/day Controlled 7).Essential Tremors Primidone 250 mg PO 1x/day Propranolol 120 mg PO 1x/day 8). Prophylactic Measures SCDs Lovenox Colace 100 mg PO 2x/day Zofran 4 mg IV Q6H PRN N/V Xanax 0.25 mg PO 1x/day LR @ 50 mL/hr Discharge Exam - Head Exam Head Exam: ATRAUMATIC, NORMAL INSPECTION, NORMOCEPHALIC - Eye Exam Eye Exam: Normal appearance Pupil Exam: NORMAL ACCOMODATION - ENT Exam ENT Exam: Mucous Membranes Moist, Normal External Ear Exam - Neck Exam Neck exam: Full Rom - Respiratory Exam Respiratory Exam: NORMAL BREATHING PATTERN. absent: Respiratory Distress - Cardiovascular Exam Cardiovascular Exam: REGULAR RHYTHM, +S1, +S2 - GI/Abdominal Exam GI & Abdominal Exam: Normal Bowel Sounds, Soft. absent: Tenderness - Extremities Exam Extremities exam: normal capillary refill, pedal pulses present Additional comments: RUE elevated to pole dressing intact - Back Exam Back exam: absent: CVA tenderness (L), CVA tenderness (R) - Neurological Exam Neurological exam: Alert, CN II-XII Intact, Oriented x3, Reflexes Normal - Psychiatric Exam Psychiatric exam: Normal Affect, Normal Mood - Skin Skin Exam: Dry, Normal Color, Warm Discharge Plan - Discharge Medications Prescriptions: Enoxaparin [Lovenox] 40 mg SQ DAILY #1 syr - Follow Up Plan Condition: STABLE Disposition: TRANSF TO SNF Additional Instructions: d/c to TCU Referrals: Wiley Cabello III, MD [Staff Provider] - Maddie Baca MD [Staff Provider] -
--- NOTE | 2016-12-25 11:37 | CP.PCM.PN ---
Subjective - Date & Time of Evaluation Date of Evaluation: 12/25/16 Time of Evaluation: 10:00 - Subjective Subjective: NO CHEST PAIN OR SOB Objective - Vital Signs/Intake and Output Vital Signs (last 24 hours): Temp Pulse Resp BP Pulse Ox 98.5 F 76 18 143/70 92 L 12/25/16 08:00 12/25/16 09:18 12/25/16 08:00 12/25/16 09:18 12/25/16 08:00 - Medications Medications: Current Medications Alprazolam (Xanax) 0.25 mg PO DAILY [facility] Stop: 12/28/16 09:01 Last Admin: 12/25/16 09:29 Dose: 0.25 mg Aspirin (Ecotrin) 81 mg PO BID [facility] Last Admin: 12/25/16 09:17 Dose: 81 mg Atorvastatin Calcium (Lipitor) 10 mg PO DAILY [facility] Last Admin: 12/25/16 09:19 Dose: 10 mg Docusate Sodium (Colace) 100 mg PO BID [facility] Last Admin: 12/25/16 09:17 Dose: 100 mg Hydrochlorothiazide (Microzide) 12.5 mg PO DAILY [facility] Last Admin: 12/25/16 09:19 Dose: 12.5 mg Lactated Ringer's (Lactated Ringer's) 1,000 mls @ 50 mls/hr IV .Q20H [facility] Last Admin: 12/25/16 04:45 Dose: 50 mls/hr Insulin Human Regular (Humulin R) 0 units SC ACHS [facility] PRN Reason: Protocol Last Admin: 12/25/16 06:45 Dose: Not Given Ketorolac Tromethamine (Toradol) 30 mg IVP Q6 PRN PRN Reason: Pain, severe (8-10) Last Admin: 12/23/16 06:14 Dose: 30 mg Ketorolac Tromethamine (Toradol) 15 mg IVP Q6 PRN PRN Reason: Pain, moderate (4-7) Last Admin: 12/21/16 02:38 Dose: 15 mg Metformin HCl (Glucophage) 500 mg PO BID [facility] Last Admin: 12/25/16 09:17 Dose: 500 mg Ondansetron HCl (Zofran Inj) 4 mg IVP Q6 PRN PRN Reason: Nausea/Vomiting Oxycodone/Acetaminophen (Percocet 5/325 Mg Tab) 2 tab PO Q4 PRN PRN Reason: Pain, moderate (4-7) Stop: 12/25/16 17:06 Last Admin: 12/25/16 06:46 Dose: 2 tab Primidone (Mysoline) 250 mg PO DAILY [facility] Last Admin: 12/25/16 09:19 Dose: 250 mg Propranolol HCl (Inderal La) 120 mg PO DAILY [facility] Last Admin: 12/25/16 09:18 Dose: 120 mg - Labs Labs: 12/25/16 06:25 12/25/16 06:25 PT 11.2 SECONDS (9.6-11.2) 12/22/16 06:10 INR 1.08 (0.92-1.08) 12/22/16 06:10 APTT 26.8 SECONDS (23.3-32.5) 12/21/16 00:10 - Respiratory Exam Respiratory Exam: Clear to Ausculation Bilateral - Cardiovascular Exam Cardiovascular Exam: REGULAR RHYTHM, +S1, +S2 - Additional Findings Additional findings: FIGHTING VEHICLE SYSTEMS MAINTAINER NSR ORTHOPEDIC NOTES REVIEWED Assessment and Plan - Assessment and Plan (Free Text) Assessment: MULTIPLE TRAUMA WITH RADIAL HEAD AND ULNAR SURGERY HYPERTENSION HYPERLIPIDEMIA TYPE 2 DM Plan: FOR DISCHARGE TO TCU AND DISTAL RADIUS FRACTURE TO BE DONE IN THE NEAR FUTURE CONTINUE PROPRANOLOL AND ATORVASTATIN
--- NOTE | 2016-12-25 12:14 | OP ---
PROCEDURE DATE: 12/22/2016 PREOPERATIVE DIAGNOSES: 1. Fracture dislocation of the right elbow. 2. Fracture, distal radius. 3. Morbid obesity. POSTOPERATIVE DIAGNOSES: 1. Displaced fracture, radial head, with fracture of the proximal ulna, comminuted. 2. Rupture lateral collateral ligament. 3. Fractured distal radius. 4. Morbid obesity. PROCEDURES: 1. Primary replacement right radial head/radial head replacement. 2. Open reduction internal fixation of displaced comminuted proximal ulnar fracture. 3. Repair lateral collateral ligament. 4. Application of posterior splint. 5. Positioning of fluoroscope, interpretation of video images. SURGEON: Wiley Cabello MD VINYL TOP INSTALLER: Ricarda Noriega PA-C. ANESTHESIA: General endotracheal anesthesia, Dr. Pa. COMPLICATIONS: None. DRAINS: None. BLOOD LOSS: Approximately 35 mL. OPERATIVE INDICATION: The patient is an 86-year-old woman who had sustained a fall in her home, fall ing down 16 stairs injuring her right upper extremity. The patient presented to the Emergency Room [facility] with marked discomfort, pain and restricted range of motion with evidence of a fracture of the elbow, particularly the olecranon, a completely displaced comminuted ra dial head fracture and fractured distal radius. PROCEDURES: 1. Radial head replacement for a displaced comminuted radial head fracture. 2. Open reduction internal fixation of displaced ulnar fracture. 3. Primary repair of lateral collateral ligament. 4. Closed reduction distal radius fracture, application of long arm splint. OPERATIVE INDICATIONS: As above. The patient is an 86-year-old woman who sustained a fall down a fl ight of stairs. The patient was stabilized, taken to surgery. Pros, cons, risks and benefits of wayne gical approach were discussed at length with the patient and her family. The possibility of alarm mechanic al failure, infection, thromboembolic disease, secondary or tertiary surgery is discussed. The patie nt can no longer stand the discomfort and wished the surgery to be accomplished. The closed reductio n of the distal radius fracture will be accomplished today, but the definitive fixation of the distal radius fracture will be accomplished at a second sitting. This is thoroughly discussed with the benito pedroza. Pros, cons, risks and benefits were discussed at length. OPERATIVE PROCEDURE: After having obtained informed consent in the above fashion, after the satisfac tory induction of the anesthetic by Dr. Pa, after having identified side, site and procedure and a critical pause/timeout, the patient correctly identified, in the supine position with all bony pro minences well padded, the right upper extremity is prepped and free draped in the usual fashion for u pper extremity surgery. The tourniquet had been applied but is not yet inflated. After sterilely pr epping and draping, under the surgeon's direction the fluoroscope was positioned, video images are ge nerated, therapeutic decisions are made therefrom. After exsanguinating the limb using a 6-inch Leonarda rch bandage, the tourniquet which had been applied is inflated to 275 mmHg. The radial head will be first addressed. Ab incision is described, after localizing ____ Wiley Cabello MD cc: [phone] TT: 12/23/2016 09:16:59 wv
--- NOTE | 2016-12-25 12:27 | RAD ---
PROCEDURE: Radiographs of the Right Forearm HISTORY: s/p right arm surgery COMPARISON: 12/21/2016 TECHNIQUE: Frontal and lateral views obtained. FINDINGS: BONES: Status post radial head replacement. Status post open reduction and internal fixation of comminuted proximal ulnar fracture with metallic plate and screws. There is near normal bone alignment. There is diffuse bone demineralization. JOINT SPACES: Unremarkable. OTHER FINDINGS: None. IMPRESSION: 1. Status post open reduction and internal fixation of comminuted proximal ulnar fracture with a metallic plate and screws, near normal bone alignment. 2. Status post radial head replacement.
--- NOTE | 2016-12-25 12:29 | RAD ---
PROCEDURE: Right Wrist Radiographs. HISTORY: s/p right arm surgery COMPARISON: 12/20/2016 FINDINGS: BONES: There is redemonstration of an acute oblique nondisplaced fracture in the distal radius with intra-articular extension. There is diffuse bone demineralization. JOINTS: The proximal and distal carpal rows are maintained. The intercarpal joint spaces are preserved. 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 There is interval casting. OTHER FINDINGS: None. IMPRESSION: Cast obscures fine bony details. Redemonstration of acute nondisplaced fracture in the distal radius with intra-articular extension.
[2016-12-25 13:34] VITALS: BP 101/41; PULSE 69; RESP 18; TEMP 98.4; O2SAT 95
--- NOTE | 2016-12-26 14:20 | RAD ---
PROCEDURE: Radiographs of the right elbow. HISTORY: s/p right arm surgery COMPARISON: 12/21/2016 FINDINGS: BONES: Status post ORIF olecranon fracture. Arthroplasty of radiohumeral articulation with radial head prosthesis. Bony fragment versus dystrophic bone projecting over proximal humeral metaphysis. Fracture fragments are near anatomic alignment. JOINTS: As above SOFT TISSUES: Normal. JOINT EFFUSION: None. OTHER FINDINGS: None. IMPRESSION: ORIF olecranon fracture. Radial head prosthesis noted.
--- NOTE | 2016-12-31 10:53 | PROCN ---
DATE: 12/22/2016 PREOPERATIVE DIAGNOSES: Fracture dislocation of the right elbow, right distal radius fracture and mo rbid obesity. POSTOPERATIVE DIAGNOSES: Displaced fracture of the radial head with fracture of the proximal ulna, c omminuted, rupture of the lateral collateral ligament, fractured distal radius and morbid obesity. PROCEDURE: Primary replacement of the right radial head, open reduction and internal fixation of the displaced comminuted proximal ulnar fracture, repair of the lateral collateral ligament, application s of a posterior splint, positioning on fluoroscope and interpretation of video images. SURGEON: Dr. Wiley Cabello. CONSTRUCTION EQUIPMENT OPERATOR: priscilla Orta PA-C. SURGICAL PHYSICIAN CONSTRUCTION EQUIPMENT OPERATOR GIFT PACKER PROCEDURE NOTE: There was no resident available to assist during this case. I, Ricarda Noriega, am a board certified surgical physician workers compensation claims assistant whose assistance was needed during this case for positioning of the patient, opening and closing incisions, protection of neurovascular structures, maintenance of surgical field, assistance with placement of hardware. My assistance was deemed necessary for successful completion of the case. I was present f or the entire case with Dr. Cabello. Riacrda Noriega PA-C Wiley Cabello MD cc: [id number] TT: 12/31/2016 10:53:23 Confirmation # [id number] Dictation # [id number]
== END 2016-12-25 15:00 | DRG 483 ==
LOC: H.ER 21:15 → H.ERHOLD 12-21 00:35 → H.MEDSURG1 12-21 02:00 → OBSVTOIN 12-21 10:15 → H.TEL 12-22 18:23
PROVIDERS: ADMIT Internal Medicine; ATTEND Internal Medicine
PROC: 0PSHXZZ Reposition Right Radius, External Approach (ICD-10-PCS; principal; 2016-12-21)
PROC: 0PSK04Z Reposition Right Ulna with Internal Fixation Device, Open Approach (ICD-10-PCS; 2016-12-22)
PROC: 0XQB0ZZ Repair Right Elbow Region, Open Approach (ICD-10-PCS; 2016-12-22)
PROC: 3E0T3BZ Introduction of Anesthetic Agent into Peripheral Nerves and Plexi, Percutaneous Approach (ICD-10-PCS; 2016-12-22)
PROC: 0RRL0JZ Replacement of Right Elbow Joint with Synthetic Substitute, Open Approach (ICD-10-PCS; 2016-12-22 12:15)
DX: S52.021A Displaced fracture of olecranon process without intraarticular extension of right ulna, initial encounter for closed fracture (principal); E11.65 Type 2 diabetes mellitus with hyperglycemia; E86.0 Dehydration; E66.01 Morbid (severe) obesity due to excess calories; S52.501A Unspecified fracture of the lower end of right radius, initial encounter for closed fracture; I10 Essential (primary) hypertension; D72.829 Elevated white blood cell count, unspecified; E78.5 Hyperlipidemia, unspecified; S52.121A Displaced fracture of head of right radius, initial encounter for closed fracture; W10.9XXA Fall (on) (from) unspecified stairs and steps, initial encounter; E78.00 Pure hypercholesterolemia, unspecified; G25.0 Essential tremor; Z96.653 Presence of artificial knee joint, bilateral; Z68.31 Body mass index [BMI] 31.0-31.9, adult; I25.10 Atherosclerotic heart disease of native coronary artery without angina pectoris; Z98.61 Coronary angioplasty status; S53.21XA Traumatic rupture of right radial collateral ligament, initial encounter

== ENCOUNTER 2016-12-25 10:10 | Inpatient (IN) | payer MEDICARE ==
[2016-12-25 15:32] VITALS: BMI 31.1
[2016-12-25 16:19] VITALS: RESP 20
[2016-12-25] MEDS: Oxycodone/Acetaminophen 5/325 mg Tab PO PRN (17:40)
[2016-12-25] MEDS: Insulin Regular 100 units/ml SC SCH ×2 (17:44→21:59)
[2016-12-26] MEDS: Oxycodone/Acetaminophen 5/325 mg Tab PO PRN ×4 (03:12→23:02)
[2016-12-26] MEDS: Insulin Regular 100 units/ml SC SCH ×4 (07:36→22:09)
[2016-12-26] MEDS: PROPRANOLOL 120 MG PO SCH (09:54)
[2016-12-26] MEDS: Enoxaparin 40 mg Syringe SC SCH (09:55)
--- NOTE | 2016-12-26 11:03 | CP.PCM.CON ---
History of Present Illness - History of Present Illness History of Present Illness: 86 YEAR OLD FEMALE WITH HISTORY OF HYPERTENSION, HYPERLIPIDEMIA AND TYPE 2 DM WHO FELL LAST WEAK AND SUSTAINED FRACTURES OF THE RADIUS AND ULNA. SHE UNDERWENT SURGERY OF BOTH OF THESE ARM BONES EARLIER THIS WEEK AND WAS NOW DISCHARGED TO TCU. SHE WILL HAVE RIGHT RADIAL FRACTURE SURGERY AGAIN IN THE NEAR FUTURE. CARDIOLOGY WAS ASKED TO FOLLOW THE PATIENT. Past Patient History - Past Medical History & Family History Past Medical History?: Yes - Past Social History Smoking Status: Unknown If Ever Smoked - CARDIAC Hx Cardiac Disorders: Yes (HTN, CAD, High Cholesterol) Hx Hypercholesterolemia: Yes Hx Hypertension: Yes - PULMONARY Hx Respiratory Disorders: No - NEUROLOGICAL Hx Neurological Disorder: Yes (Essential tremors) Other/Comment: Essential tremors - HEENT Hx HEENT Problems: No - RENAL Hx Chronic Kidney Disease: No - ENDOCRINE/METABOLIC Hx Endocrine Disorders: Yes (DM) Hx Diabetes Mellitus Type 2: Yes - HEMATOLOGICAL/ONCOLOGICAL Hx Blood Disorders: No Hx AIDS: No Hx Human Immunodeficiency Virus (HIV): No - INTEGUMENTARY Hx Dermatological Problems: No - MUSCULOSKELETAL/RHEUMATOLOGICAL Hx Falls: Yes Hx Fractures: Yes - GASTROINTESTINAL Hx Gastrointestinal Disorders: No - GENITOURINARY/GYNECOLOGICAL Hx Genitourinary Disorders: No - PSYCHIATRIC Hx Psychophysiologic Disorder: No Hx Substance Use: No - SURGICAL HISTORY Hx Cholecystectomy: Yes Hx Orthopedic Surgery: Yes (right elbow repair, bilateral knees) Other/Comment: Bilateral knee replacement - ANESTHESIA Hx Anesthesia: Yes Hx Anesthesia Reactions: No Hx Malignant Hyperthermia: No Has any member of the family had a problem w/ anesthesia?: No Meds Allergies/Adverse Reactions: Allergies Allergy/AdvReac Type Severity Reaction Status Date / Time No Known Allergies Allergy Verified 12/25/16 15:33 - Medications Medications: Current Medications Alprazolam (Xanax) 0.25 mg PO DAILY [facility] Stop: 01/02/17 09:01 Last Admin: 12/26/16 09:58 Dose: 0.25 mg Atorvastatin Calcium (Lipitor) 10 mg PO DAILY [facility] Last Admin: 12/26/16 09:54 Dose: 10 mg Docusate Sodium (Colace) 100 mg PO BID [facility] Last Admin: 12/26/16 09:54 Dose: 100 mg Enoxaparin Sodium (Lovenox) 40 mg SC DAILY [facility] PRN Reason: Protocol Last Admin: 12/26/16 09:55 Dose: 40 mg Hydrochlorothiazide (Microzide) 12.5 mg PO DAILY [facility] Last Admin: 12/26/16 09:54 Dose: 12.5 mg Insulin Human Regular (Humulin R) 0 units SC ACHS [facility] PRN Reason: Protocol Last Admin: 12/26/16 07:36 Dose: Not Given Metformin HCl (Glucophage) 500 mg PO BID [facility] Last Admin: 12/26/16 09:55 Dose: 500 mg Oxycodone/Acetaminophen (Percocet 5/325 Mg Tab) 1 tab PO Q4 PRN PRN Reason: Pain, moderate (4-7) Stop: 12/28/16 16:08 Last Admin: 12/26/16 09:58 Dose: 1 tab Primidone (Mysoline) 250 mg PO DAILY [facility] Last Admin: 12/26/16 09:54 Dose: 250 mg Propranolol HCl (Inderal La) 120 mg PO DAILY [facility] Last Admin: 12/26/16 09:54 Dose: 120 mg Physical Exam - Respiratory Exam Respiratory Exam: Clear to Auscultation Bilateral - Cardiovascular Exam Cardiovascular Exam: REGULAR RHYTHM, +S1, +S2 Results - Vital Signs Recent Vital Signs: Last Vital Signs Temp 97.9 F 12/26/16 08:50 Pulse 73 12/26/16 09:54 Resp 20 12/26/16 08:50 BP 130/58 L 12/26/16 09:54 Pulse Ox 90 L 12/26/16 08:50 - Labs Labs: Laboratory Results - last 24 hr 12/25/16 12/26/16 20:25 05:38 POC Glucose (mg/dL) 131 H 113 H Assessment & Plan - Assessment and Plan (Free Text) Assessment: HYPERTENSION HYPERLIPIDEMIA TYPE 2 DM S/P FRACTURE SURGERY OF RT RADIUS AND ULNA Plan: CONTINUE PROPRANOLOL, ATORVASTATIN, GLUCOPHAGE, HCTZ, LOVENOX CONTINUE PHYSICAL THERAPY
--- NOTE | 2016-12-26 11:33 | CP.PCM.CON ---
History of Present Illness - History of Present Illness History of Present Illness: 86 year female status post fall fracture of radius and ulna status post orif of ulna further surgery of radius after decrease in swelling of arm arm now for TCU Review of Systems - Constitutional Constitutional: Weakness - Musculoskeletal Musculoskeletal: Joint Swelling, Limited Range of Motion Past Patient History - Past Medical History & Family History Past Medical History?: Yes - Past Social History Smoking Status: Unknown If Ever Smoked - CARDIAC Hx Cardiac Disorders: Yes (HTN, CAD, High Cholesterol) Hx Hypercholesterolemia: Yes Hx Hypertension: Yes - PULMONARY Hx Respiratory Disorders: No - NEUROLOGICAL Hx Neurological Disorder: Yes (Essential tremors) Other/Comment: Essential tremors - HEENT Hx HEENT Problems: No - RENAL Hx Chronic Kidney Disease: No - ENDOCRINE/METABOLIC Hx Endocrine Disorders: Yes (DM) Hx Diabetes Mellitus Type 2: Yes - HEMATOLOGICAL/ONCOLOGICAL Hx Blood Disorders: No Hx AIDS: No Hx Human Immunodeficiency Virus (HIV): No - INTEGUMENTARY Hx Dermatological Problems: No - MUSCULOSKELETAL/RHEUMATOLOGICAL Hx Falls: Yes Hx Fractures: Yes - GASTROINTESTINAL Hx Gastrointestinal Disorders: No - GENITOURINARY/GYNECOLOGICAL Hx Genitourinary Disorders: No - PSYCHIATRIC Hx Psychophysiologic Disorder: No Hx Substance Use: No - SURGICAL HISTORY Hx Cholecystectomy: Yes Hx Orthopedic Surgery: Yes (right elbow repair, bilateral knees) Other/Comment: Bilateral knee replacement - ANESTHESIA Hx Anesthesia: Yes Hx Anesthesia Reactions: No Hx Malignant Hyperthermia: No Has any member of the family had a problem w/ anesthesia?: No Meds Allergies/Adverse Reactions: Allergies Allergy/AdvReac Type Severity Reaction Status Date / Time No Known Allergies Allergy Verified 12/25/16 15:33 - Medications Medications: Current Medications Alprazolam (Xanax) 0.25 mg PO DAILY [facility] Stop: 01/02/17 09:01 Last Admin: 12/26/16 09:58 Dose: 0.25 mg Atorvastatin Calcium (Lipitor) 10 mg PO DAILY [facility] Last Admin: 12/26/16 09:54 Dose: 10 mg Docusate Sodium (Colace) 100 mg PO BID [facility] Last Admin: 12/26/16 09:54 Dose: 100 mg Enoxaparin Sodium (Lovenox) 40 mg SC DAILY [facility] PRN Reason: Protocol Last Admin: 12/26/16 09:55 Dose: 40 mg Hydrochlorothiazide (Microzide) 12.5 mg PO DAILY [facility] Last Admin: 12/26/16 09:54 Dose: 12.5 mg Insulin Human Regular (Humulin R) 0 units SC ACHS [facility] PRN Reason: Protocol Last Admin: 12/26/16 07:36 Dose: Not Given Metformin HCl (Glucophage) 500 mg PO BID [facility] Last Admin: 12/26/16 09:55 Dose: 500 mg Oxycodone/Acetaminophen (Percocet 5/325 Mg Tab) 1 tab PO Q4 PRN PRN Reason: Pain, moderate (4-7) Stop: 12/28/16 16:08 Last Admin: 12/26/16 09:58 Dose: 1 tab Primidone (Mysoline) 250 mg PO DAILY [facility] Last Admin: 12/26/16 09:54 Dose: 250 mg Propranolol HCl (Inderal La) 120 mg PO DAILY [facility] Last Admin: 12/26/16 09:54 Dose: 120 mg Physical Exam - Head Exam Head Exam: ATRAUMATIC, NORMAL INSPECTION, NORMOCEPHALIC - Eye Exam Eye Exam: EOMI, Normal appearance - ENT Exam ENT Exam: Mucous Membranes Moist - Respiratory Exam Respiratory Exam: Clear to Auscultation Bilateral - Cardiovascular Exam Cardiovascular Exam: REGULAR RHYTHM - GI/Abdominal Exam GI & Abdominal Exam: Normal Bowel Sounds - Rectal Exam Rectal Exam: NORMAL INSPECTION - Extremities Exam Additional comments: right upper extremity swelling - Neurological Exam Neurological exam: Alert, Reflexes Normal - Psychiatric Exam Psychiatric exam: Normal Affect, Normal Mood - Skin Skin Exam: Normal Color Results - Vital Signs Recent Vital Signs: Last Vital Signs Temp 97.9 F 12/26/16 08:50 Pulse 73 12/26/16 09:54 Resp 20 12/26/16 08:50 BP 130/58 L 12/26/16 09:54 Pulse Ox 90 L 12/26/16 08:50 - Labs Labs: Laboratory Results - last 24 hr 12/25/16 12/26/16 12/26/16 20:25 05:38 11:07 POC Glucose (mg/dL) 131 H 113 H 123 H Assessment & Plan (1) Elbow fracture Assessment and Plan: limited Physical, occupational therapy, precautions as per orthopedics Dr Mares status post multiple trauma, orif or ulnar fracture additional surgery after decrease in swelling will ask Dr leonardo to cover over the weekend back on thursday Thank you Status: Acute (2) Wrist fracture Status: Acute (3) DM type 2 (diabetes mellitus, type 2) Status: Chronic (4) Essential tremor Status: Chronic (5) HTN (hypertension) Status: Chronic
--- NOTE | 2016-12-26 18:58 | CP.PCM.HP ---
History of Present Illness - History of Present Illness History of Present Illness: 86 year old female with PMH HTN, essential tremors was admitted 12/21/16 s/p falling down 10 flight of stairs and was diagnosed with fracture of the right radial head, right proximal ulna, and right wrist fracture. She underwent Right Radial Head Transplant and Right Proximal Ulnar ORIF by Orthopedics Dr. Mares on 12/22/16. Post op patient doing well. at preset transferred to TCU for PT.Still with some pain to right arm but controlled Allergies: NKDA PMH: DM II; HTN; HLD; Benign Essential tremors. PSH: Endoscopy; Cardiac Cath 2010; Cholecystectomy > 20 years ago; Bilateral Knee replacement SH: No smoking; No Alcohol use; No illegal drug use; Live with Family FH: No Hereditary diseases ROS ; 14 point review of system negative except above Present on Admission - Present on Admission Any Indicators Present on Admission: No Review of Systems - Review of Systems All systems: reviewed and no additional remarkable complaints except Past Patient History - Infectious Disease Hx of Infectious Diseases: None - Tetanus Immunizations Tetanus Immunization: Unknown - Past Medical History & Family History Past Medical History?: Yes Past Family History: Reviewed and not pertinent - Past Social History Smoking Status: Unknown If Ever Smoked Chewing Tobacco Use: No Cigar Use: No Alcohol: None Drugs: Denies Home Situation {Lives}: With Family Domestic Violence: Negative - CARDIAC Hx Cardiac Disorders: Yes (HTN, CAD, High Cholesterol) Hx Hypercholesterolemia: Yes Hx Hypertension: Yes - PULMONARY Hx Respiratory Disorders: No - NEUROLOGICAL Hx Neurological Disorder: Yes (Essential tremors) Other/Comment: Essential tremors - HEENT Hx HEENT Problems: No - RENAL Hx Chronic Kidney Disease: No - ENDOCRINE/METABOLIC Hx Endocrine Disorders: Yes (DM) Hx Diabetes Mellitus Type 2: Yes - HEMATOLOGICAL/ONCOLOGICAL Hx Blood Disorders: No Hx AIDS: No Hx Human Immunodeficiency Virus (HIV): No - INTEGUMENTARY Hx Dermatological Problems: No - MUSCULOSKELETAL/RHEUMATOLOGICAL Hx Falls: Yes Hx Fractures: Yes - GASTROINTESTINAL Hx Gastrointestinal Disorders: No - GENITOURINARY/GYNECOLOGICAL Hx Genitourinary Disorders: No - PSYCHIATRIC Hx Psychophysiologic Disorder: No Hx Substance Use: No - SURGICAL HISTORY Hx Cholecystectomy: Yes Hx Orthopedic Surgery: Yes (right elbow repair, bilateral knees) Other/Comment: Bilateral knee replacement - ANESTHESIA Hx Anesthesia: Yes Hx Anesthesia Reactions: No Hx Malignant Hyperthermia: No Has any member of the family had a problem w/ anesthesia?: No Meds Allergies/Adverse Reactions: Allergies Allergy/AdvReac Type Severity Reaction Status Date / Time No Known Allergies Allergy Verified 12/25/16 15:33 Physical Exam - Constitutional Appears: Non-toxic, No Acute Distress - Head Exam Head Exam: ATRAUMATIC, NORMAL INSPECTION, NORMOCEPHALIC - Eye Exam Eye Exam: EOMI, Normal appearance, PERRL Pupil Exam: NORMAL ACCOMODATION - ENT Exam ENT Exam: Mucous Membranes Moist, Normal Exam - Neck Exam Neck exam: Positive for: Full Rom, Normal Inspection - Respiratory Exam Respiratory Exam: Clear to Auscultation Bilateral, NORMAL BREATHING PATTERN. absent: Rales, Rhonchi, Wheezes - Cardiovascular Exam Cardiovascular Exam: REGULAR RHYTHM, RRR, +S1, +S2. absent: JVD - GI/Abdominal Exam GI & Abdominal Exam: Normal Bowel Sounds, Soft. absent: Distended, Guarding, Rebound - Rectal Exam Rectal Exam: Deferred - Extremities Exam Extremities exam: Positive for: normal capillary refill, normal inspection, pedal edema, pedal pulses present. Negative for: calf tenderness Additional comments: right arm cast in place with sling fingers are swollen but mobile, warm to touch, capillary refill intact - Back Exam Back exam: NORMAL INSPECTION - Neurological Exam Neurological exam: Alert, CN II-XII Intact, Oriented x3, Reflexes Normal - Psychiatric Exam Psychiatric exam: Normal Affect, Normal Mood - Skin Skin Exam: Dry, Intact, Normal Color, Warm Results - Vital Signs Recent Vital Signs: Last Vital Signs Temp 98.2 F 12/26/16 16:37 Pulse 75 12/26/16 16:43 Resp 20 12/26/16 16:37 BP 124/67 12/26/16 16:37 Pulse Ox 97 12/26/16 16:43 - Labs Labs: Laboratory Results - last 24 hr 12/25/16 12/26/16 12/26/16 20:25 05:38 11:07 POC Glucose (mg/dL) 131 H 113 H 123 H 12/26/16 17:03 POC Glucose (mg/dL) 145 H Assessment & Plan - Assessment and Plan (Free Text) Assessment: 86 year old female with PMH HTN, essential tremors was admitted 12/21/16 s/p falling down 10 flight of stairs and was diagnosed with fracture of the right radial head, right proximal ulna, and right wrist fracture. She underwent Right Radial Head Transplant and Right Proximal Ulnar ORIF by Orthopedics Dr. Mares on 12/22/16. Post op patient doing well. at preset transferred to TCU for PT.Still with some pain to right arm but controlled Dr. Mares to plan for Right Wrist Surgery (Right Distal Radial Fracture) at a later time. 1. Right Elbow (Radial Head and Proximal Ulna)/Right Wrist (Right Distal Radial ) Fracture s/p Right Ulnar ORIF Orthopedics Dr. Cabello Continue pain mgt Percocet 5/325 mg PO PRN Moderate Pain PT/OT consulted continue physical therapy in TCU Plan for wrist surgery when swelling is down 2. DM II controlled Regular insulin sliding scale with accuchecks Cardiac and Diabetic diet Metformin 500 mg PO 2x/day 3. HTN controlled Continued propranolol and HCTZ 4..Essential Tremors Primidone 250 mg PO 1x/day Propranolol 120 mg PO 1x/day 5. DVT phophylaxis SCDs Lovenox
[2016-12-27] MEDS: Insulin Regular 100 units/ml SC SCH ×4 (06:57→22:16)
[2016-12-27] MEDS: Oxycodone/Acetaminophen 5/325 mg Tab PO PRN ×2 (09:50→20:45)
[2016-12-27] MEDS: PROPRANOLOL 120 MG PO SCH (09:51)
[2016-12-27] MEDS: Enoxaparin 40 mg Syringe SC SCH (09:52)
[2016-12-28] MEDS: Insulin Regular 100 units/ml SC SCH ×4 (06:46→22:31)
[2016-12-28] MEDS: Oxycodone/Acetaminophen 5/325 mg Tab PO PRN ×2 (09:11→18:00)
[2016-12-28] MEDS: Enoxaparin 40 mg Syringe SC SCH (09:12)
[2016-12-28] MEDS: PROPRANOLOL 120 MG PO SCH (09:13)
--- NOTE | 2016-12-28 12:46 | CP.PCM.PN ---
Subjective - Date & Time of Evaluation Date of Evaluation: 12/28/16 Time of Evaluation: 11:30 - Subjective Subjective: NO COMPLAINTS Objective - Vital Signs/Intake and Output Vital Signs (last 24 hours): Temp Pulse Resp BP Pulse Ox 97.1 F L 69 20 118/61 98 12/28/16 08:33 12/28/16 09:13 12/28/16 08:33 12/28/16 09:13 12/28/16 08:33 - Medications Medications: Current Medications Alprazolam (Xanax) 0.25 mg PO DAILY [facility] Stop: 01/02/17 09:01 Last Admin: 12/28/16 09:11 Dose: 0.25 mg Alprazolam (Xanax) 0.25 mg PO Q8 PRN PRN Reason: Anxiety Stop: 01/03/17 13:20 Last Admin: 12/27/16 13:52 Dose: 0.25 mg Alprazolam (Xanax) 0.25 mg PO DAILY [facility] Stop: 01/04/17 09:01 Last Admin: 12/28/16 09:14 Dose: Not Given Atorvastatin Calcium (Lipitor) 10 mg PO DAILY [facility] Last Admin: 12/28/16 09:13 Dose: 10 mg Docusate Sodium (Colace) 100 mg PO BID [facility] Last Admin: 12/28/16 09:14 Dose: 100 mg Enoxaparin Sodium (Lovenox) 40 mg SC DAILY [facility] PRN Reason: Protocol Last Admin: 12/28/16 09:12 Dose: 40 mg Hydrochlorothiazide (Microzide) 12.5 mg PO DAILY [facility] Last Admin: 12/28/16 09:14 Dose: 12.5 mg Insulin Human Regular (Humulin R) 0 units SC [facility] PRN Reason: Protocol Last Admin: 12/28/16 06:46 Dose: Not Given Metformin HCl (Glucophage) 500 mg PO BID [facility] Last Admin: 12/28/16 09:14 Dose: 500 mg Oxycodone/Acetaminophen (Percocet 5/325 Mg Tab) 1 tab PO Q4 PRN PRN Reason: Pain, moderate (4-7) Stop: 12/28/16 16:08 Last Admin: 12/28/16 09:11 Dose: 1 tab Primidone (Mysoline) 250 mg PO DAILY [facility] Last Admin: 12/28/16 09:12 Dose: 250 mg Propranolol HCl (Inderal La) 120 mg PO DAILY [facility] Last Admin: 12/28/16 09:13 Dose: 120 mg - Respiratory Exam Respiratory Exam: Clear to Ausculation Bilateral - Cardiovascular Exam Cardiovascular Exam: REGULAR RHYTHM, +S1, +S2 Assessment and Plan - Assessment and Plan (Free Text) Assessment: S/P SURGICAL REPAIR OF PROXIMAL RADIUS AND ULNA HYPERTENSION HYPERLIPIDEMIA TYPE 2 DM Plan: CONDTINUE PROPRANOLOL, ATORVASTATIN, GLUCOPHAGE AND LOVENOX FOR DISTAL RADIUS SURGERY
[2016-12-29] MEDS: Oxycodone/Acetaminophen 5/325 mg Tab PO PRN ×4 (03:21→23:40)
[2016-12-29] MEDS: Insulin Regular 100 units/ml SC SCH ×4 (06:51→22:34)
[2016-12-29] MEDS: PROPRANOLOL 120 MG PO SCH (08:56)
[2016-12-29] MEDS: Enoxaparin 40 mg Syringe SC SCH (08:58)
--- NOTE | 2016-12-29 12:59 | CP.PCM.PN ---
Subjective - Date & Time of Evaluation Date of Evaluation: 12/29/16 Time of Evaluation: 12:30 - Subjective Subjective: NO NEW COMPLAINTS Objective - Vital Signs/Intake and Output Vital Signs (last 24 hours): Temp Pulse Resp BP Pulse Ox 97.0 F L 75 20 115/55 L 98 12/29/16 08:38 12/29/16 08:56 12/29/16 08:38 12/29/16 08:56 12/29/16 08:38 - Medications Medications: Current Medications Alprazolam (Xanax) 0.25 mg PO DAILY [facility] Stop: 01/02/17 09:01 Last Admin: 12/29/16 09:06 Dose: 0.25 mg Alprazolam (Xanax) 0.25 mg PO Q8 PRN PRN Reason: Anxiety Stop: 01/03/17 13:20 Last Admin: 12/27/16 13:52 Dose: 0.25 mg Alprazolam (Xanax) 0.25 mg PO DAILY [facility] Stop: 01/04/17 09:01 Last Admin: 12/29/16 08:57 Dose: Not Given Atorvastatin Calcium (Lipitor) 10 mg PO DAILY [facility] Last Admin: 12/29/16 08:56 Dose: 10 mg Docusate Sodium (Colace) 100 mg PO BID [facility] Last Admin: 12/29/16 08:56 Dose: 100 mg Enoxaparin Sodium (Lovenox) 40 mg SC DAILY [facility] PRN Reason: Protocol Last Admin: 12/29/16 08:58 Dose: 40 mg Hydrochlorothiazide (Microzide) 12.5 mg PO DAILY [facility] Last Admin: 12/29/16 08:56 Dose: 12.5 mg Insulin Human Regular (Humulin R) 0 units SC [facility] PRN Reason: Protocol Last Admin: 12/29/16 11:44 Dose: Not Given Metformin HCl (Glucophage) 500 mg PO BID@0800,1700 [facility] Last Admin: 12/29/16 08:56 Dose: 500 mg Oxycodone/Acetaminophen (Percocet 5/325 Mg Tab) 1 tab PO Q6 PRN PRN Reason: Pain, moderate (4-7) Stop: 12/31/16 17:44 Last Admin: 12/29/16 09:06 Dose: 1 tab Primidone (Mysoline) 250 mg PO DAILY [facility] Last Admin: 12/29/16 08:56 Dose: 250 mg Propranolol HCl (Inderal La) 120 mg PO DAILY [facility] Last Admin: 12/29/16 08:56 Dose: 120 mg - Respiratory Exam Respiratory Exam: Clear to Ausculation Bilateral - Cardiovascular Exam Cardiovascular Exam: REGULAR RHYTHM, +S1, +S2 Assessment and Plan - Assessment and Plan (Free Text) Assessment: HYPERTENSION HYPERLIPIDEMIA TYPE 2 DM S/P SURGICAL REPAIR OF RIGHT RADIAL HEAD AND ULNA Plan: CONTINUE GLUCOPHAGE, ATORVASTATIN, PROPANOLOL, LOVENOX
[2016-12-30] MEDS: Oxycodone/Acetaminophen 5/325 mg Tab PO PRN ×3 (05:54→23:30)
[2016-12-30] MEDS: Insulin Regular 100 units/ml SC SCH ×4 (06:35→21:47)
[2016-12-30] MEDS: Enoxaparin 40 mg Syringe SC SCH (08:29)
[2016-12-30] MEDS: PROPRANOLOL 120 MG PO SCH (08:30)
--- NOTE | 2016-12-30 09:31 | CP.PCM.PN ---
Subjective - Date & Time of Evaluation Date of Evaluation: 12/30/16 Time of Evaluation: 08:45 - Subjective Subjective: NO COMPLAINTS Objective - Vital Signs/Intake and Output Vital Signs (last 24 hours): Temp Pulse Resp BP Pulse Ox 98.2 F 70 20 126/56 L 91 L 12/30/16 08:41 12/30/16 08:41 12/30/16 08:41 12/30/16 08:41 12/30/16 08:41 - Medications Medications: Current Medications Alprazolam (Xanax) 0.25 mg PO DAILY [facility] Stop: 01/02/17 09:01 Last Admin: 12/30/16 08:29 Dose: Not Given Alprazolam (Xanax) 0.25 mg PO Q8 PRN PRN Reason: Anxiety Stop: 01/03/17 13:20 Last Admin: 12/27/16 13:52 Dose: 0.25 mg Alprazolam (Xanax) 0.25 mg PO DAILY [facility] Stop: 01/04/17 09:01 Last Admin: 12/30/16 08:28 Dose: 0.25 mg Atorvastatin Calcium (Lipitor) 10 mg PO DAILY [facility] Last Admin: 12/30/16 08:30 Dose: 10 mg Docusate Sodium (Colace) 100 mg PO BID [facility] Last Admin: 12/30/16 08:29 Dose: 100 mg Enoxaparin Sodium (Lovenox) 40 mg SC DAILY [facility] PRN Reason: Protocol Last Admin: 12/30/16 08:29 Dose: 40 mg Hydrochlorothiazide (Microzide) 12.5 mg PO DAILY [facility] Last Admin: 12/30/16 08:30 Dose: 12.5 mg Insulin Human Regular (Humulin R) 0 units SC [facility] PRN Reason: Protocol Last Admin: 12/30/16 06:35 Dose: Not Given Metformin HCl (Glucophage) 500 mg PO BID@0800,1700 [facility] Last Admin: 12/30/16 07:52 Dose: 500 mg Oxycodone/Acetaminophen (Percocet 5/325 Mg Tab) 1 tab PO Q6 PRN PRN Reason: Pain, moderate (4-7) Stop: 12/31/16 17:44 Last Admin: 12/30/16 05:54 Dose: 1 tab Primidone (Mysoline) 250 mg PO DAILY [facility] Last Admin: 12/30/16 08:30 Dose: 250 mg Propranolol HCl (Inderal La) 120 mg PO DAILY [facility] Last Admin: 12/30/16 08:30 Dose: 120 mg - Respiratory Exam Respiratory Exam: Clear to Ausculation Bilateral - Cardiovascular Exam Cardiovascular Exam: REGULAR RHYTHM, +S1, +S2 Assessment and Plan - Assessment and Plan (Free Text) Assessment: HYPERTENSION HYPERLIPIDEMIA RIGHT RADIAL AND ULNA FRACTURES Plan: CONTINUE PROPRANOLOL, ATORVASTATIN AND LOVENOX
--- NOTE | 2016-12-30 11:10 | CP.PCM.PN ---
Subjective - Date & Time of Evaluation Date of Evaluation: 12/30/16 Time of Evaluation: 10:50 - Subjective Subjective: Hospitalist Progress Note (Patient was seen and examined at 10:50 AM 12/30/16 TCU 714-1 with Son present) 86 year old male who was admitted to [facility] 12/21/16 s/p falling down 15 flight of stairs. X Rays here at [facility] indicated fracture of the right radial head, right proximal ulna, and right distal radial fracture. She underwent Right Radial Head Transplant and Right Proximal Ulnar ORIF by Orthopedics Dr. Mares . She was then transferred to [facility] TCU on 12/25/16 for PT/OT. Patient for possible ORIF Right Distal Radial Fracture on 01/01/17. Upon ROS: The Right Upper Arm and Elbow are painful especially after PT: pain is controlled with Percocet and Icing as needed She is currently moving her bowels without any issues. NO other complaints: NO chest pain, NO palpitations, NO SOB/Cough/Wheezing, NO dysphagia/odynophagia , NO abdominal pain, NO n/v/d/c, NO burning/pain with urination, NO lightheadedness/dizziness, NO headaches, NO new changes in vision/eye pain, NO new changes in hearing/ear pain, NO paresthesias HEENT: NCA, EOMI, PERRLA, NO cervical lymphadenopathy, NO thyromegaly, Oral Mucosa and Nasal Turbinates are moist, NO Pharyngeal Erythema/Exudate Cardiology: Systolic Ejection Murmur heard loudest along left lower sternal border Respiratory: CTA B/L, NO R/R/W GI: BSx4, Soft, NT, Central Obesity, NO HSM, NO Guarding/NO Rebound Tenderness Ext: Right Arm in soft cast, Pulses are strong and equal in the bilateral LE and strong in the Left UE, Capillary Refill is 2 seconds in all extremities, NO edema in Left UE and B/L LE, Sensation in all extremities is intact and patient able to move all of the fingers of the Right UE Neuro: CN II through XII are grossly intact Assessement and Plan: 1). Right Elbow (Radial Head and Proximal Ulna)/Right Wrist (Right Distal Radial ) Fracture Post Op Day #[address] Mares Percocet 5/325 mg 1 tab PO Q6H PRN Moderate Pain Icing PRN Patient for possible ORIF Right Distal Radial Fracture on 01/01/17. 2). Hx Suspected UTI UA cloudy with LE +, WBC 45 and many bacteria however Urine Culture 12/21/16 did not show any growth therefore the Rocephin was discontinued Currently NO complaints of burning/pain with urination 3). Hx Dehydration Resolved 4). Hx Neutrophilic Leukocytosis Most likely reactive WBC normalized F/U repeat CBC with differential 12/31/16 5). Hx DM II with Hyperglycemia Reguar insulin sliding scale with accuchecks Cardiac and Diabetic diet Metformin 500 mg PO 2x/day Controlled 6). Hx HTN Propranol 120mg PO daily HCTZ 12.5 mg PO 1x/day Controlled 7). Hx HLD Atorvastatin 10 mg PO 1x/day 8). Hx Essential Tremors Primidone 250 mg PO 1x/day Propranolol 120 mg PO 1x/day 9). Prophylactic Measures B/L [employer] Xanax 0.25 mg PO Q8H PRN Anxiety Xanax 0.25 mg PO 1x/day Lovenox 40 mg SQ 1x/day Objective - Vital Signs/Intake and Output Vital Signs (last 24 hours): Temp Pulse Resp BP Pulse Ox 98.2 F 70 20 126/56 L 91 L 12/30/16 08:41 12/30/16 08:41 12/30/16 08:41 12/30/16 08:41 12/30/16 08:41 - Medications Medications: Current Medications Alprazolam (Xanax) 0.25 mg PO Q8 PRN PRN Reason: Anxiety Stop: 01/03/17 13:20 Last Admin: 12/27/16 13:52 Dose: 0.25 mg Alprazolam (Xanax) 0.25 mg PO DAILY [facility] Stop: 01/04/17 09:01 Last Admin: 12/30/16 08:28 Dose: 0.25 mg Atorvastatin Calcium (Lipitor) 10 mg PO DAILY [facility] Last Admin: 12/30/16 08:30 Dose: 10 mg Docusate Sodium (Colace) 100 mg PO BID [facility] Last Admin: 12/30/16 08:29 Dose: 100 mg Enoxaparin Sodium (Lovenox) 40 mg SC DAILY [facility] PRN Reason: Protocol Last Admin: 12/30/16 08:29 Dose: 40 mg Hydrochlorothiazide (Microzide) 12.5 mg PO DAILY [facility] Last Admin: 12/30/16 08:30 Dose: 12.5 mg Insulin Human Regular (Humulin R) 0 units SC ACHS [facility] PRN Reason: Protocol Last Admin: 12/30/16 06:35 Dose: Not Given Metformin HCl (Glucophage) 500 mg PO BID@0800,1700 [facility] Last Admin: 12/30/16 07:52 Dose: 500 mg Oxycodone/Acetaminophen (Percocet 5/325 Mg Tab) 1 tab PO Q6 PRN PRN Reason: Pain, moderate (4-7) Stop: 12/31/16 17:44 Last Admin: 12/30/16 05:54 Dose: 1 tab Primidone (Mysoline) 250 mg PO DAILY [facility] Last Admin: 12/30/16 08:30 Dose: 250 mg Propranolol HCl (Inderal La) 120 mg PO DAILY [facility] Last Admin: 12/30/16 08:30 Dose: 120 mg
--- NOTE | 2016-12-30 14:09 | CP.PCM.PN ---
Subjective - Date & Time of Evaluation Date of Evaluation: 12/30/16 Time of Evaluation: 10:00 - Subjective Subjective: patient with no complains of arm pain or discomfort Objective - Vital Signs/Intake and Output Vital Signs (last 24 hours): Temp Pulse Resp BP Pulse Ox 98.2 F 70 20 126/56 L 91 L 12/30/16 08:41 12/30/16 08:41 12/30/16 08:41 12/30/16 08:41 12/30/16 08:41 - Medications Medications: Current Medications Alprazolam (Xanax) 0.25 mg PO Q8 PRN PRN Reason: Anxiety Stop: 01/03/17 13:20 Last Admin: 12/30/16 13:05 Dose: 0.25 mg Alprazolam (Xanax) 0.25 mg PO DAILY [facility] Stop: 01/04/17 09:01 Last Admin: 12/30/16 08:28 Dose: 0.25 mg Atorvastatin Calcium (Lipitor) 10 mg PO DAILY [facility] Last Admin: 12/30/16 08:30 Dose: 10 mg Docusate Sodium (Colace) 100 mg PO BID [facility] Last Admin: 12/30/16 08:29 Dose: 100 mg Enoxaparin Sodium (Lovenox) 40 mg SC DAILY [facility] PRN Reason: Protocol Last Admin: 12/30/16 08:29 Dose: 40 mg Hydrochlorothiazide (Microzide) 12.5 mg PO DAILY [facility] Last Admin: 12/30/16 08:30 Dose: 12.5 mg Insulin Human Regular (Humulin R) 0 units SC [facility] PRN Reason: Protocol Last Admin: 12/30/16 11:30 Dose: Not Given Metformin HCl (Glucophage) 500 mg PO BID@0800,1700 [facility] Last Admin: 12/30/16 07:52 Dose: 500 mg Oxycodone/Acetaminophen (Percocet 5/325 Mg Tab) 1 tab PO Q6 PRN PRN Reason: Pain, moderate (4-7) Stop: 12/31/16 17:44 Last Admin: 12/30/16 13:04 Dose: 1 tab Primidone (Mysoline) 250 mg PO DAILY [facility] Last Admin: 12/30/16 08:30 Dose: 250 mg Propranolol HCl (Inderal La) 120 mg PO DAILY [facility] Last Admin: 12/30/16 08:30 Dose: 120 mg - Head Exam Head Exam: ATRAUMATIC, NORMAL INSPECTION, NORMOCEPHALIC - Eye Exam Eye Exam: PERRL Pupil Exam: NORMAL ACCOMODATION - ENT Exam ENT Exam: Mucous Membranes Moist, Normal Exam - Respiratory Exam Respiratory Exam: NORMAL BREATHING PATTERN - Cardiovascular Exam Cardiovascular Exam: REGULAR RHYTHM - GI/Abdominal Exam GI & Abdominal Exam: Normal Bowel Sounds - Rectal Exam Rectal Exam: NORMAL INSPECTION - Exam Exam: NORMAL INSPECTION - Extremities Exam Extremities Exam: Normal Capillary Refill, Normal Inspection - Back Exam Back Exam: NORMAL INSPECTION - Neurological Exam Neurological Exam: Alert, Awake Neuro motor strength exam: Left Upper Extremity: 4, Right Upper Extremity: 2/1, Left Lower Extremity: 4, Right Lower Extremity: 4 - Psychiatric Exam Psychiatric exam: Normal Affect, Normal Mood - Skin Skin Exam: Dry, Intact Assessment and Plan (1) Elbow fracture Assessment & Plan: patient with good sensation in fingers and no numbess right arm keep elevated decreased swelling Status: Acute (2) Wrist fracture Status: Acute (3) DM type 2 (diabetes mellitus, type 2) Status: Chronic (4) Essential tremor Status: Chronic (5) HTN (hypertension) Status: Chronic
--- NOTE | 2016-12-30 14:35 | CP.PCM.PN ---
Subjective - Date & Time of Evaluation Date of Evaluation: 12/29/16 Time of Evaluation: 14:00 - Subjective Subjective: no acute complaints of any arm discomfort unless it get to be dependent just releived by elevation Objective - Vital Signs/Intake and Output Vital Signs (last 24 hours): Temp Pulse Resp BP Pulse Ox 98.2 F 70 20 126/56 L 91 L 12/30/16 08:41 12/30/16 08:41 12/30/16 08:41 12/30/16 08:41 12/30/16 08:41 - Medications Medications: Current Medications Alprazolam (Xanax) 0.25 mg PO Q8 PRN PRN Reason: Anxiety Stop: 01/03/17 13:20 Last Admin: 12/30/16 13:05 Dose: 0.25 mg Alprazolam (Xanax) 0.25 mg PO DAILY [facility] Stop: 01/04/17 09:01 Last Admin: 12/30/16 08:28 Dose: 0.25 mg Atorvastatin Calcium (Lipitor) 10 mg PO DAILY [facility] Last Admin: 12/30/16 08:30 Dose: 10 mg Docusate Sodium (Colace) 100 mg PO BID [facility] Last Admin: 12/30/16 08:29 Dose: 100 mg Enoxaparin Sodium (Lovenox) 40 mg SC DAILY [facility] PRN Reason: Protocol Last Admin: 12/30/16 08:29 Dose: 40 mg Hydrochlorothiazide (Microzide) 12.5 mg PO DAILY [facility] Last Admin: 12/30/16 08:30 Dose: 12.5 mg Insulin Human Regular (Humulin R) 0 units SC [facility] PRN Reason: Protocol Last Admin: 12/30/16 11:30 Dose: Not Given Metformin HCl (Glucophage) 500 mg PO BID@0800,1700 [facility] Last Admin: 12/30/16 07:52 Dose: 500 mg Oxycodone/Acetaminophen (Percocet 5/325 Mg Tab) 1 tab PO Q6 PRN PRN Reason: Pain, moderate (4-7) Stop: 12/31/16 17:44 Last Admin: 12/30/16 13:04 Dose: 1 tab Primidone (Mysoline) 250 mg PO DAILY [facility] Last Admin: 12/30/16 08:30 Dose: 250 mg Propranolol HCl (Inderal La) 120 mg PO DAILY [facility] Last Admin: 12/30/16 08:30 Dose: 120 mg - Head Exam Head Exam: ATRAUMATIC, NORMAL INSPECTION, NORMOCEPHALIC - Eye Exam Eye Exam: EOMI, Normal appearance, PERRL Pupil Exam: NORMAL ACCOMODATION - ENT Exam ENT Exam: Mucous Membranes Moist, Normal Exam - Neck Exam Neck Exam: Normal Inspection - Respiratory Exam Respiratory Exam: Clear to Ausculation Bilateral, NORMAL BREATHING PATTERN - Cardiovascular Exam Cardiovascular Exam: REGULAR RHYTHM - GI/Abdominal Exam GI & Abdominal Exam: Soft, Normal Bowel Sounds - Rectal Exam Rectal Exam: NORMAL INSPECTION - Exam External exam: NORMAL EXTERNAL EXAM - Extremities Exam Extremities Exam: Normal Capillary Refill - Back Exam Back Exam: NORMAL INSPECTION - Neurological Exam Neurological Exam: Alert, Awake Neuro motor strength exam: Left Upper Extremity: 3, Right Upper Extremity: 2/1, Left Lower Extremity: 3, Right Lower Extremity: 3 - Psychiatric Exam Psychiatric exam: Normal Affect, Normal Mood - Skin Skin Exam: Dry, Intact, Normal Color Assessment and Plan (1) Elbow fracture Status: Acute (2) Wrist fracture Assessment & Plan: continue with elevation of arm rom of hand Limited Pt and Ot therapy Status: Acute (3) DM type 2 (diabetes mellitus, type 2) Status: Chronic (4) Essential tremor Status: Chronic (5) HTN (hypertension) Status: Chronic
[2016-12-31] MEDS: Oxycodone/Acetaminophen 5/325 mg Tab PO PRN ×2 (05:48→13:27)
[2016-12-31] MEDS: Insulin Regular 100 units/ml SC SCH ×4 (06:30→22:06)
[2016-12-31 08:10] LABS: BASO # 0.1 K/uL (0.0-0.2); BASO % 1.1 % (0.0-2.0); EOS # 0.3 K/uL (0.0-0.7); EOS % 5.4 % (0.0-4.0); HEMATOCRIT 27.5 % (34.0-47.0); LYMPH # 1.4 K/uL (1.0-4.3); LYMPH % 24.7 % (20.0-40.0); MEAN CELL VOLUME 99.1 fl (81.0-99.0); MEAN CORPUSCULAR HEMOGLOBIN 33.8 pg (27.0-31.0); MEAN CORPUSCULAR HGB CONC 34.1 g/dL (33.0-37.0); MEAN PLATELET VOLUME 7.5 fl (7.2-11.7); MONO # 0.6 K/uL (0.0-0.8); MONO % 10.1 % (0.0-10.0); NEUT # 3.3 K/uL (1.8-7.0); NEUT % 58.7 % (50.0-75.0); NRBC % 0.2 % (0.0-0.0); RED CELL DISTRIBUTION WIDTH 13.8 % (11.5-14.5); WHITE BLOOD COUNT 5.6 K/uL (4.8-10.8)
[2016-12-31 08:37] LABS: ALB/GLOB RATIO 0.9 (1.0-2.1); ALKALINE PHOSPHATASE 102 U/L (38-126); ALT/SGPT 30 U/L (9-52); AST/SGOT 36 U/L (14-36); BILIRUBIN,TOTAL 0.4 mg/dl (0.2-1.3); BLOOD UREA NITROGEN 19 mg/dl (7-17); CALCIUM 8.7 mg/dL (8.4-10.2); CARBON DIOXIDE 28 mmol/L (22-30); CHLORIDE 97 mmol/L (98-107); GFR AFRICAN-AMERICAN > 60; GLUCOSE,RANDOM 95 mg/dL (65-105); POTASSIUM 3.6 MMOL/L (3.6-5.0); SODIUM 136 mmol/l (132-148); TOTAL PROTEIN 6.5 G/DL (6.3-8.2)
[2016-12-31] MEDS: PROPRANOLOL 120 MG PO SCH (08:38)
[2016-12-31] MEDS: Enoxaparin 40 mg Syringe SC SCH (08:39)
[2016-12-31 09:32] LABS: PARTIAL THROMBOPLASTIN TIME 33.2 SECONDS (23.3-32.5)
--- NOTE | 2016-12-31 09:42 | CP.PCM.PN ---
Subjective - Date & Time of Evaluation Date of Evaluation: 12/31/16 Time of Evaluation: 09:00 - Subjective Subjective: NO NEW COMPLAINTS Objective - Vital Signs/Intake and Output Vital Signs (last 24 hours): Temp Pulse Resp BP Pulse Ox 98.1 F 70 20 118/58 L 93 L 12/31/16 08:08 12/31/16 08:38 12/31/16 08:08 12/31/16 08:38 12/31/16 08:08 - Medications Medications: Current Medications Alprazolam (Xanax) 0.25 mg PO Q8 PRN PRN Reason: Anxiety Stop: 01/03/17 13:20 Last Admin: 12/31/16 02:43 Dose: 0.25 mg Alprazolam (Xanax) 0.[address] [facility] Stop: 01/04/17 09:01 Last Admin: 12/31/16 08:43 Dose: 0.25 mg Atorvastatin Calcium (Lipitor) [address] [facility] Last Admin: 12/31/16 08:39 Dose: 10 mg Docusate Sodium (Colace) [address] [facility] Last Admin: 12/31/16 08:39 Dose: 100 mg Enoxaparin Sodium (Lovenox) [address] [facility] PRN Reason: Protocol Last Admin: 12/31/16 08:39 Dose: 40 mg Hydrochlorothiazide (Microzide) 12.[address] [facility] Last Admin: 12/31/16 08:39 Dose: 12.5 mg Insulin Human Regular (Humulin R) [address] [facility] PRN Reason: Protocol Last Admin: 12/31/16 06:30 Dose: Not Given Metformin HCl (Glucophage) 500 mg PO BID@0800,1700 [facility] Last Admin: 12/31/16 08:39 Dose: 500 mg Oxycodone/Acetaminophen (Percocet 5/325 Mg Tab) 1 tab PO Q6 PRN PRN Reason: Pain, moderate (4-7) Stop: 12/31/16 17:44 Last Admin: 12/31/16 05:48 Dose: 1 tab Primidone (Mysoline) [address] [facility] Last Admin: 12/31/16 08:39 Dose: 250 mg Propranolol HCl (Inderal La) [address] [facility] Last Admin: 12/31/16 08:38 Dose: 120 mg - Labs Labs: 12/31/16 07:47 12/31/16 07:47 PT 11.3 SECONDS (9.6-11.2) H 12/31/16 07:47 INR 1.09 (0.92-1.08) H 12/31/16 07:47 APTT 33.2 SECONDS (23.3-32.5) H 12/31/16 07:47 - Respiratory Exam Respiratory Exam: Clear to Ausculation Bilateral - Cardiovascular Exam Cardiovascular Exam: REGULAR RHYTHM, +S1, +S2 Assessment and Plan - Assessment and Plan (Free Text) Assessment: HYPERTENSION HYPERLIPIDEMIA FALL WITH TRAUMA AND RUE FRACTURES Plan: CONTINUE INDERAL, LOVENOX AND ATORVASTATIN PATIENT IS CLEARED FROM THE CARDIAC VIEWPOINT FOR ORTHOPEDIC SURGERY
--- NOTE | 2016-12-31 12:30 | CP.PCM.PN ---
Subjective - Date & Time of Evaluation Date of Evaluation: 12/31/16 Time of Evaluation: 10:00 - Subjective Subjective: no acute complaints at present Objective - Vital Signs/Intake and Output Vital Signs (last 24 hours): Temp Pulse Resp BP Pulse Ox 98.1 F 70 20 118/58 L 93 L 12/31/16 08:08 12/31/16 08:38 12/31/16 08:08 12/31/16 08:38 12/31/16 08:08 - Medications Medications: Current Medications Alprazolam (Xanax) 0.25 mg PO Q8 PRN PRN Reason: Anxiety Stop: 01/03/17 13:20 Last Admin: 12/31/16 02:43 Dose: 0.25 mg Alprazolam (Xanax) 0.25 mg PO DAILY [facility] Stop: 01/04/17 09:01 Last Admin: 12/31/16 08:43 Dose: 0.25 mg Atorvastatin Calcium (Lipitor) 10 mg PO DAILY [facility] Last Admin: 12/31/16 08:39 Dose: 10 mg Docusate Sodium (Colace) 100 mg PO BID [facility] Last Admin: 12/31/16 08:39 Dose: 100 mg Hydrochlorothiazide (Microzide) 12.5 mg PO DAILY [facility] Last Admin: 12/31/16 08:39 Dose: 12.5 mg Insulin Human Regular (Humulin R) 0 units SC ACHS [facility] PRN Reason: Protocol Last Admin: 12/31/16 12:25 Dose: Not Given Metformin HCl (Glucophage) 500 mg PO BID@0800,1700 [facility] Last Admin: 12/31/16 08:39 Dose: 500 mg Oxycodone/Acetaminophen (Percocet 5/325 Mg Tab) 1 tab PO Q6 PRN PRN Reason: Pain, moderate (4-7) Stop: 12/31/16 17:44 Last Admin: 12/31/16 05:48 Dose: 1 tab Primidone (Mysoline) 250 mg PO DAILY [facility] Last Admin: 12/31/16 08:39 Dose: 250 mg Propranolol HCl (Inderal La) 120 mg PO DAILY [facility] Last Admin: 12/31/16 08:38 Dose: 120 mg - Labs Labs: 12/31/16 07:47 12/31/16 07:47 PT 11.3 SECONDS (9.6-11.2) H 12/31/16 07:47 INR 1.09 (0.92-1.08) H 12/31/16 07:47 APTT 33.2 SECONDS (23.3-32.5) H 12/31/16 07:47 - Head Exam Head Exam: ATRAUMATIC, NORMAL INSPECTION, NORMOCEPHALIC - Eye Exam Eye Exam: EOMI, Normal appearance, PERRL Pupil Exam: NORMAL ACCOMODATION - ENT Exam ENT Exam: Mucous Membranes Moist, Normal Exam - Respiratory Exam Respiratory Exam: NORMAL BREATHING PATTERN - Cardiovascular Exam Cardiovascular Exam: REGULAR RHYTHM - GI/Abdominal Exam GI & Abdominal Exam: Normal Bowel Sounds - Rectal Exam Rectal Exam: NORMAL INSPECTION - Exam External exam: NORMAL EXTERNAL EXAM - Extremities Exam Extremities Exam: Normal Capillary Refill, Normal Inspection - Neurological Exam Neurological Exam: Alert, Awake Neuro motor strength exam: Left Upper Extremity: 3, Right Upper Extremity: 2/1, Left Lower Extremity: 3, Right Lower Extremity: 3 - Psychiatric Exam Psychiatric exam: Normal Affect, Normal Mood - Skin Skin Exam: Normal Color Assessment and Plan (1) Elbow fracture Status: Acute (2) Wrist fracture Assessment & Plan: to continue to monitor skin, maintain Rom strengthing,work on bed mobility and transfers PT and OT therapy Status: Acute (3) DM type 2 (diabetes mellitus, type 2) Status: Chronic (4) Essential tremor Status: Chronic (5) HTN (hypertension) Status: Chronic
--- NOTE | 2016-12-31 12:44 | CP.PCM.PCO ---
Physician Communication Note - Physician Communication Note Physician Communication Note: Patient is Medically Cleared for Orthopedic Surgery 01/01/17
[2016-12-31 16:50] VITALS: BP 101/56; PULSE 67; TEMP 98.2; O2SAT 96
[2017-01-01] MEDS: Insulin Regular 100 units/ml SC SCH (07:43)
[2017-01-01] MEDS: PROPRANOLOL 120 MG PO SCH (09:34)
--- NOTE | 2017-01-01 10:51 | PCM.SURG1 ---
Surgeon's Initial Post Op Note - Surgeon's Notes Surgeon: Irineo Dry Janitor: JOSE Casas Type of Anesthesia: General Endo Anesthesia Administered By: DR Nieves Pre-Operative Diagnosis: Displaced/comminuted distal radius fx Operative Findings: as above Post-Operative Diagnosis: as above Operation Performed: closed reduction /percutaneous pin fixation displaced distal radius fx. applx external fixator. manipulation and evaluation L elbow under anaesthesia Specimen/Specimens Removed: N/A Estimated Blood Loss: EBL {In ML}: 5 Blood Products Given: N/A Drains Used: No Drains Post-Op Condition: Good Date of Surgery/Procedure: 01/01/17 Time of Surgery/Procedure: 08:05 (time in room 7:34/anaesthesia indcution time 7 :34)
--- NOTE | 2017-01-01 11:16 | CP.PCM.PN ---
Subjective - Date & Time of Evaluation Date of Evaluation: 01/01/17 Time of Evaluation: 07:00 - Subjective Subjective: NO NEW COMPLAINTS Objective - Vital Signs/Intake and Output Vital Signs (last 24 hours): Temp Pulse Resp BP Pulse Ox 98.2 F 67 20 101/56 L 96 12/31/16 16:50 12/31/16 16:50 12/31/16 16:50 12/31/16 16:50 12/31/16 16:50 - Medications Medications: Current Medications Alprazolam (Xanax) 0.25 mg PO Q8 PRN PRN Reason: Anxiety Stop: 01/03/17 13:20 Last Admin: 12/31/16 02:43 Dose: 0.25 mg Alprazolam (Xanax) 0.25 mg PO DAILY [facility] Stop: 01/04/17 09:01 Last Admin: 01/01/17 09:36 Dose: Not Given Atorvastatin Calcium (Lipitor) 10 mg PO DAILY [facility] Last Admin: 01/01/17 09:35 Dose: Not Given Docusate Sodium (Colace) 100 mg PO BID [facility] Last Admin: 01/01/17 09:33 Dose: Not Given Hydrochlorothiazide (Microzide) 12.5 mg PO DAILY [facility] Last Admin: 01/01/17 09:35 Dose: Not Given Cefazolin Sodium 1 gm/ Sodium (Chloride) 100 mls @ 100 mls/hr IVPB Q8 [facility] Stop: 01/02/17 01:59 Vancomycin HCl 1 gm/ Sodium (Chloride) 250 mls @ 125 mls/hr IVPB Q12 [facility] Stop: 01/01/17 22:59 Insulin Human Regular (Humulin R) 0 units SC ACHS [facility] PRN Reason: Protocol Last Admin: 01/01/17 07:43 Dose: Not Given Metformin HCl (Glucophage) 500 mg PO BID@0800,1700 [facility] Last Admin: 01/01/17 09:33 Dose: Not Given Primidone (Mysoline) 250 mg PO DAILY [facility] Last Admin: 01/01/17 09:36 Dose: Not Given Propranolol HCl (Inderal La) 120 mg PO DAILY [facility] Last Admin: 01/01/17 09:34 Dose: Not Given - Labs Labs: 12/31/16 07:47 12/31/16 07:47 PT 11.3 SECONDS (9.6-11.2) H 12/31/16 07:47 INR 1.09 (0.92-1.08) H 12/31/16 07:47 APTT 33.2 SECONDS (23.3-32.5) H 12/31/16 07:47 - Respiratory Exam Respiratory Exam: Clear to Ausculation Bilateral - Cardiovascular Exam Cardiovascular Exam: REGULAR RHYTHM, +S1, +S2 Assessment and Plan - Assessment and Plan (Free Text) Assessment: HYPERTENSION HYPERLIPIDEMIA TYPE 2 DM Plan: FOR OR TODAY FOR REPAIR OF DISTAL RIGHT RADIUS FRACTURE
[2017-01-01] MEDS ORDERED: ceFAZolin 1 GM in Sodium Chloride 0.9% 100 ML IVPB SCH (17:00)
--- NOTE | 2017-01-01 17:26 | CP.PCM.DIS ---
Provider - Provider Date of Admission: 12/25/16 15:55 Attending physician: Maddie Baca MD Primary care physician: Ronel Lane MD Consults: Orthopedics Dr. Cabello Cardiology Dr. Ricketts Time Spent in preparation of Discharge (in minutes): 40 Hospital Course - Lab Results Lab Results: Most Recent Lab Values WBC 5.6 K/uL (4.8-10.8) 12/31/16 07:47 RBC 2.78 Mil/uL (3.80-5.20) L 12/31/16 07:47 Hgb 9.4 g/dL (12.0-16.0) L 12/31/16 07:47 Hct 27.5 % (34.0-47.0) L 12/31/16 07:47 MCV 99.1 fl (81.0-99.0) H D 12/31/16 07:47 MCH 33.8 pg (27.0-31.0) H 12/31/16 07:47 MCHC 34.1 g/dL (33.0-37.0) 12/31/16 07:47 RDW 13.8 % (11.5-14.5) 12/31/16 07:47 Plt Count 344 K/uL (130-400) D 12/31/16 07:47 MPV 7.5 fl (7.2-11.7) 12/31/16 07:47 Neut % (Auto) 58.7 % (50.0-75.0) 12/31/16 07:47 Lymph % (Auto) 24.7 % (20.0-40.0) 12/31/16 07:47 [place] % (Auto) 10.1 % (0.0-10.0) H 12/31/16 07:47 Eos % (Auto) 5.4 % (0.0-4.0) H 12/31/16 07:47 Baso % (Auto) 1.1 % (0.0-2.0) 12/31/16 07:47 Neut # 3.3 K/uL (1.8-7.0) 12/31/16 07:47 Lymph # 1.4 K/uL (1.0-4.3) 12/31/16 07:47 [place] # 0.6 K/uL (0.0-0.8) 12/31/16 07:47 Eos # 0.3 K/uL (0.0-0.7) 12/31/16 07:47 Baso # 0.1 K/uL (0.0-0.2) 12/31/16 07:47 PT 11.3 SECONDS (9.6-11.2) H 12/31/16 07:47 INR 1.09 (0.92-1.08) H 12/31/16 07:47 APTT 33.2 SECONDS (23.3-32.5) H 12/31/16 07:47 Sodium 136 mmol/l (132-148) 12/31/16 07:47 Potassium 3.6 MMOL/L (3.6-5.0) 12/31/16 07:47 Chloride 97 mmol/L (98-107) L 12/31/16 07:47 Carbon Dioxide 28 mmol/L (22-30) 12/31/16 07:47 Anion Gap 15 (10-20) 12/31/16 07:47 BUN 19 mg/dl (7-17) H 12/31/16 07:47 Creatinine 0.7 mg/dL (0.7-1.2) 12/31/16 07:47 Est GFR ( Amer) > 60 12/31/16 07:47 Est GFR (Non-Af Amer) > 60 12/31/16 07:47 POC Glucose (mg/dL) 130 mg/dL (65-110) H 12/31/16 16:28 Random Glucose 95 mg/dL (65-105) 12/31/16 07:47 Calcium 8.7 mg/dL (8.4-10.2) 12/31/16 07:47 Total Bilirubin 0.4 mg/dl (0.2-1.3) 12/31/16 07:47 AST 36 U/L (14-36) 12/31/16 07:47 ALT 30 U/L (9-52) 12/31/16 07:47 Alkaline Phosphatase 102 U/L (38-126) 12/31/16 07:47 Total Protein 6.5 G/DL (6.3-8.2) 12/31/16 07:47 Albumin 3.1 g/dL (3.5-5.0) L 12/31/16 07:47 Globulin 3.4 gm/dL (2.2-3.9) 12/31/16 07:47 Albumin/Globulin Ratio 0.9 (1.0-2.1) L 12/31/16 07:47 Blood Type O POSITIVE 12/31/16 15:15 Antibody Screen Negative 12/31/16 15:15 Crossmatch See Detail 12/31/16 15:15 BBK History Checked Patient has bt 12/31/16 15:15 - Hospital Course Hospital Course: Patient was seen and examined at 12:30 PM in Same Day Surgery 01/01/17 86 year old male who was admitted to [facility] 12/21/16 s/p falling down 15 flight of stairs. X Rays here at [facility] indicated fracture of the right radial head, right proximal ulna, and right distal radial fracture. She underwent Right Radial Head Transplant and Right Proximal Ulnar ORIF by Orthopedics Dr. Mares . She was then transferred to [facility] TCU on 12/25/16 for PT/OT. Patient then underwent Closed Reduction with Percutaneous Pin Fixation of Displaced Distal Right Radial Fracture by Dr. Mares on 01/01/17. She was discharged to the Medical Surgical Unit for observation on 01/01/17. Please see individual assessment and plans below. Upon ROS: The Right Upper Arm and Elbow and Hand are "achy" and the fingers of the right hand are "sore" She is currently moving her bowels without any issues. NO other complaints: NO chest pain, NO palpitations, NO SOB/Cough/Wheezing, NO dysphagia/odynophagia , NO abdominal pain, NO n/v/d/c, NO burning/pain with urination, NO lightheadedness/dizziness, NO headaches, NO new changes in vision/eye pain, NO new changes in hearing/ear pain, NO paresthesias HEENT: NCA, EOMI, PERRLA, NO cervical lymphadenopathy, NO thyromegaly, Oral Mucosa and Nasal Turbinates are moist, NO Pharyngeal Erythema/Exudate Cardiology: Systolic Ejection Murmur heard loudest along left lower sternal border Respiratory: CTA B/L, NO R/R/W GI: BSx4, Soft, NT, Central Obesity, NO HSM, NO Guarding/NO Rebound Tenderness Ext: Right Arm in soft cast, Pulses are strong and equal in the bilateral LE and strong in the Left UE, Capillary Refill is 2 seconds in all extremities, NO edema in Left UE and B/L LE, Sensation in all extremities is intact and patient able to move all of the fingers of the Right UE Neuro: CN II through XII are grossly intact Assessement and Plan: 1). Right Elbow (Radial Head and Proximal Ulna) Post Op Day #[address] Vishnu Lambertocet 5/325 mg 1 tab PO Q6H PRN Moderate Pain Icing PRN 2). Right Displaced Distal Radial Fracture S/P Closed Reduction with Percutaneous Pin Fixation 01/01/17 2). Hx Suspected UTI UA cloudy with LE +, WBC 45 and many bacteria however Urine Culture 12/21/16 did not show any growth therefore the Rocephin was discontinued Currently NO complaints of burning/pain with urination 3). Hx Dehydration Resolved 4). Hx Neutrophilic Leukocytosis Most likely reactive WBC normalized Resolved 5). Hx DM II with Hyperglycemia Reguar insulin sliding scale with accuchecks Cardiac and Diabetic diet Metformin 500 mg PO 2x/day Controlled 6). Hx HTN Propranol 120mg PO daily HCTZ 12.5 mg PO 1x/day Controlled 7). Hx HLD Atorvastatin 10 mg PO 1x/day 8). Hx Essential Tremors Primidone 250 mg PO 1x/day Propranolol 120 mg PO 1x/day 9). Prophylactic Measures B/L Jose Manuel Stockings Xanax 0.25 mg PO Q8H PRN Anxiety Xanax 0.25 mg PO 1x/day Discharge Exam - Head Exam Head Exam: ATRAUMATIC, NORMAL INSPECTION, NORMOCEPHALIC Discharge Plan - Follow Up Plan Condition: GOOD Disposition: HOME/ ROUTINE Instructions: Fall Prevention (DC), Hypertension (DC), Hypertension (GEN) Referrals: Ronel Lane MD [Primary Care Provider] -
== END 2017-01-01 06:35 | disposition home or self-care (01) | DRG 561 ==
LOC: H.TCU 15:55
PROVIDERS: ADMIT Internal Medicine; ATTEND Internal Medicine
PROC: F08Z1FZ Dressing Techniques Treatment using Assistive, Adaptive, Supportive or Protective Equipment (ICD-10-PCS; 2016-12-28)
PROC: F08Z3FZ Feeding/Eating Treatment using Assistive, Adaptive, Supportive or Protective Equipment (ICD-10-PCS; 2016-12-28)
PROC: F07Z9FZ Gait Training/Functional Ambulation Treatment using Assistive, Adaptive, Supportive or Protective Equipment (ICD-10-PCS; principal; 2016-12-29)
PROC: F07L6FZ Therapeutic Exercise Treatment of Musculoskeletal System - Lower Back / Lower Extremity using Assistive, Adaptive, Supportive or Protective Equipment (ICD-10-PCS; 2016-12-29)
DX: S52.121D Displaced fracture of head of right radius, subsequent encounter for closed fracture with routine healing (principal); E11.65 Type 2 diabetes mellitus with hyperglycemia; E86.0 Dehydration; S52.001D Unspecified fracture of upper end of right ulna, subsequent encounter for closed fracture with routine healing; Z96.621 Presence of right artificial elbow joint; W10.9XXD Fall (on) (from) unspecified stairs and steps, subsequent encounter; I10 Essential (primary) hypertension; G25.0 Essential tremor; E78.5 Hyperlipidemia, unspecified; Z96.653 Presence of artificial knee joint, bilateral; Z79.4 Long term (current) use of insulin; S52.501D Unspecified fracture of the lower end of right radius, subsequent encounter for closed fracture with routine healing

== ENCOUNTER 2016-12-31 19:11 | Emergency (ER) | payer MEDICARE ==
[2016-12-31 19:13] VITALS: BMI 31.1
--- NOTE | 2016-12-31 20:27 | ED PDOC ---
HPI: General Adult Time Seen by Provider: 12/31/16 19:20 Chief Complaint (Nursing): Abnormal Labs History Per: Other (patient is brought to the ER from the TCU for blood transfusion. Per reports from nursing, she is due for the OR for orthopedic procedure. Patient does not offer any compliants.) Past Medical History Reviewed: Historical Data, Nursing Documentation, Vital Signs - Medical History PMH: Diabetes (type II), Fractures, HTN, Hypercholesterolemia Denies: HIV, Chronic Kidney Disease - Surgical History Surgical History: Cholecystectomy, Endoscopy - Family History Family History: States: Unknown Family Hx - Social History Current smoker - smoking cessation education provided: No - Home Medications Home Medications: Ambulatory Orders Medication Instructions Recorded Atorvastatin [Lipitor] 10 mg PO DAILY 12/20/16 Hydrochlorothiazide [Microzide] 12.5 mg PO DAILY 12/20/16 Primidone [Mysoline] 250 mg PO DAILY 12/20/16 Propranolol [Inderal LA] 120 mg PO DAILY 12/20/16 metFORMIN [glucOPHAGE] 500 mg PO BID 12/20/16 Docusate [Colace] 100 mg PO BID cap 12/25/16 Enoxaparin [Lovenox] 40 mg SQ DAILY #1 syr 12/25/16 Insulin Human Regular [HumuLIN R] 0 units SC ACHS ml 12/25/16 Ketorolac [Toradol] 30 mg IVP Q6 PRN #0 vial 12/25/16 oxyCODONE/Acetaminophen [Percocet 2 tab PO Q4 PRN #0 tab 12/25/16 5/325 mg Tab] ALPRAZolam [Xanax] 0.25 mg PO TID 12/27/16 - Allergies Allergies/Adverse Reactions: Allergies Allergy/AdvReac Type Severity Reaction Status Date / Time No Known Allergies Allergy Verified 12/25/16 15:33 Review of Systems ROS Statement: Except As Marked, All Systems Reviewed And Found Negative Physical Exam - Reviewed Nursing Documentation Reviewed: Yes Vital Signs Reviewed: Yes - Physical Exam Appears: Positive for: Well, Non-toxic, No Acute Distress Head Exam: Positive for: ATRAUMATIC, NORMAL INSPECTION, NORMOCEPHALIC Skin: Positive for: Normal Color, Warm, DRY Eye Exam: Positive for: EOMI, Normal appearance, PERRL ENT: Positive for: Normal ENT Inspection Neck: Positive for: Normal, Painless ROM Cardiovascular/Chest: Positive for: Regular Rate, Rhythm Respiratory: Positive for: CNT, Normal Breath Sounds Gastrointestinal/Abdominal: Positive for: Normal Exam, Bowel Sounds, Soft Back: Positive for: Normal Inspection Extremity: Positive for: Normal ROM, Other (right arm in cast) Neurologic/Psych: Positive for: Alert, Oriented Disposition - Clinical Impression Clinical Impression: Anemia - Patient ED Disposition Is Patient to be Admitted: No Doctor Will See Patient In The: Office - Disposition Disposition: Routine/Home Disposition Time: 23:55 Condition: STABLE Instructions: Anemia (ED) - POA Present On Arrival: None
[2017-01-01 00:21] VITALS: RESP 16
[2017-01-01 01:39] VITALS: BP 120/69; PULSE 66; TEMP 98.6; O2SAT 97
== END 2017-01-01 01:39 ==
LOC: H.ER 19:11
DX: D64.9 Anemia, unspecified (principal); E11.9 Type 2 diabetes mellitus without complications; E78.00 Pure hypercholesterolemia, unspecified; I10 Essential (primary) hypertension; Z79.84 Long term (current) use of oral hypoglycemic drugs

== ENCOUNTER 2017-01-01 06:29 | Observation (INO) | payer MEDICARE ==
[2017-01-01 06:59] VITALS: BMI 34.0
[2017-01-01] MEDS ORDERED: Midazolam 2 MG/2 ML VIAL ONE (06:59)
[2017-01-01] MEDS ORDERED: Rocuronium 10 mg/ml (5 ml) ONE (07:00)
[2017-01-01] MEDS ORDERED: Neostigmine Methylsulfate 2 MG/2 ML ML IV ONE (07:00)
[2017-01-01] MEDS ORDERED: Lidocaine Hydrochloride 5 ML INJ ONE (07:00)
[2017-01-01] MEDS ORDERED: Etomidate 20 mg/10ml Inj IV ONE (07:00)
[2017-01-01] MEDS ORDERED: Lidocaine 4% (Laryng-O-Jet) Kit MM ONE (07:00)
[2017-01-01] MEDS ORDERED: Succinylcholine 200 mg/10 ml Inj IV ONE (07:00)
[2017-01-01] MEDS ORDERED: Bupivacaine 0.5% Inj(30mL) ONE (07:17)
[2017-01-01] MEDS ORDERED: Dexamethasone 4 mg/1 ml ONE (07:17)
[2017-01-01] MEDS ORDERED: methylPREDNISolone Depo 80 mg/ml Inj ONE (07:17)
[2017-01-01] MEDS ORDERED: Bacitracin Ointment 30 GM TUBE ONE (07:18)
[2017-01-01] MEDS ORDERED: Absorbable Gelatin Sponge Size 100 ONE (07:18)
[2017-01-01] MEDS ORDERED: Iohexol 300 100 ML IJ ONE (07:18)
[2017-01-01] MEDS ORDERED: Thrombin Topical 5,000 IU Spray Kit ONE (07:21)
[2017-01-01] MEDS ORDERED: Lactated Ringer's 1,000 ML IV ONE (07:34)
[2017-01-01] MEDS ORDERED: Lactated Ringer's 1,000 ML IV SCH (09:00)
[2017-01-01] MEDS: HYDROmorphone 0.5 mg/0.5 ml ISec IVP PRN ×5 (09:05→10:10)
[2017-01-01] MEDS ORDERED: HYDROmorphone 0.5 mg/0.5 ml ISec ONE (09:14)
--- NOTE | 2017-01-01 10:45 | RAD ---
PROCEDURE: Right Wrist Radiographs. HISTORY: s/p rt wrist ORIF external fixator application COMPARISON: None. FINDINGS: The study shows placement of pins in the distal radius as well as placement of an external fixation device. There is anatomic alignment IMPRESSION: As above
--- NOTE | 2017-01-01 10:48 | RAD ---
PROCEDURE: Right elbow two views HISTORY: s/p rt wrist ORIF external fixator application COMPARISON: TECHNIQUE: Two views FINDINGS: There is internal fixation of the elbow. There is a plate and multiple screws in the ulna. There is a radial head prosthesis. On the AP view a small irregular bony fragment can be seen adjacent to the radial head. IMPRESSION: As above
--- NOTE | 2017-01-01 15:18 | OP ---
PROCEDURE DATE: 01/01/2017 PREOPERATIVE DIAGNOSES: 1. Displaced comminuted angulated distal radius fracture. 2. Status post right radial head replacement right elbow. 3. Status post open reduction internal fixation left proximal ulna fracture. PROCEDURE: 1. Closed reduction percutaneous pin fixation, distal radius fracture. 2. Application of external fixator, distal radius. 3. Manipulation and evaluation of the right elbow under anesthesia. SURGEON: Wiley Cabello MD TEAMCENTER CONSULTANT: Paula Wiseman, Certified Registered Nursing Machine Cloth Examiner. ANESTHESIA: General endotracheal anesthesia. ANESTHESIOLOGIST: Dr. Nieves. COMPLICATIONS: No complications. DRAINS: No drains. OPERATIVE INDICATION: The patient is an 86-year-old woman who presents after a fall down 16 stairs, sustaining a fracture dislocation of the right elbow and a fracture of the distal radius. The patien t was stabilized medically and approximately 2-1/2 weeks ago, the patient underwent right radial head replacement and open reduction internal fixation of the ulna fracture. The patient presents at this point after having gone to rehab in a staged procedure after the radial head replacement and the ope n reduction internal fixation of the ulna fracture. The patient presents today for definitive manage ment of the distal radius. Possibility of open reduction internal fixation with plating, the possibi lity of closed reduction, pin fixation and application of external fixator is discussed. The possibi lity of mechanical failure, stiffness, infection, thromboembolic disease, secondary or tertiary surge ry is discussed. The patient can no longer stand the discomfort and wishes the surgery to be accompl ished. OPERATIVE PROCEDURE: After having obtained informed consent from the patient in the presence of her son and daughter, after having identified side, site and procedure in a critical pause/timeout, after the satisfactory induction of the anesthetic, the patient identified as the patient, in the supine p osition with all bony prominences well padded, the right upper extremity is placed in the finger trap traction. A counter weight of approximately 5 pounds is placed across the brachium. Great care is taken to pad the brachium. Under the surgeon's direction, the fluoroscope is positioned, video image s are generated and therapeutic decisions are made therefrom. This having been accomplished, after m anipulation of the fracture, again under the surgeon's direction, verification of the position of the x-ray, verification of the distal radius fracture in acceptable position as documented. At this poi nt in time, on AP and lateral image intensification views, the distal radius fracture is found to be in acceptable position. At this point in time, at the distal radial styloid, 3 interrupted K-wires a re placed across the fracture through the ulnar cortex. Verification of position is offered on AP an d lateral image intensification views. The pins are clipped beneath the skin, the position having be en found to be acceptable and satisfactorily immobilizing the fracture. At this point in time, on th e radial dorsal aspect of the metacarpal, 2 pins are placed and 2 pins are placed proximal to the bra chioradialis in the radial shaft. This having been accomplished, the external fixator is applied wit h the brackets and the graphite sherry in acceptable position. This having been accomplished, the exter nal fixator is in acceptable position. Verification of position is offered on AP and lateral image i ntensification views. The wounds are irrigated and closure of the portals is with interrupted nylon. Compression dressing is applied. It should be noted at this point in time that under the surgeon's direction, the fluoroscope is posit ioned. The elbow is manipulated in pronation, supination, flexion, extension and the position of the ulnar fracture is found to be excellent, the position of the radial head replacement is found to be excellent. Compression dressing is applied. The patient is transferred from the operating room tabl e to the stretcher, having tolerated the procedure well. Wiley Cabello MD cc: [id number] TT: 01/01/2017 15:18:20 sn
[2017-01-01 16:41] VITALS: RESP 20
[2017-01-01] MEDS: Oxycodone/Acetaminophen 5/325 mg Tab PO PRN (18:15)
--- NOTE | 2017-01-01 18:41 | CP.PCM.HP ---
History of Present Illness - History of Present Illness History of Present Illness: Patient was seen and examined at 12:30 PM in Same Day Surgery 01/01/17 86 year old male who was admitted to [facility] 12/21/16 s/p falling down 15 flight of stairs. X Rays here at [facility] indicated fracture of the right radial head, right proximal ulna, and right distal radial fracture. She underwent Right Radial Head Transplant and Right Proximal Ulnar ORIF by Orthopedics Dr. Mares . She was then transferred to [facility] TCU on 12/25/16 for PT/OT. Patient then underwent Closed Reduction with Percutaneous Pin Fixation of Displaced Distal Right Radial Fracture by Dr. Mares on 01/01/17. She was discharged to the Medical Surgical Unit for observation on 01/01/17. Please see individual assessment and plans below for details. Upon ROS: The Right Upper Arm and Elbow and Hand are "achy" and the fingers of the right hand are "sore" She is currently moving her bowels without any issues. NO other complaints: NO chest pain, NO palpitations, NO SOB/Cough/Wheezing, NO dysphagia/odynophagia , NO abdominal pain, NO n/v/d/c, NO burning/pain with urination, NO lightheadedness/dizziness, NO headaches, NO new changes in vision/eye pain, NO new changes in hearing/ear pain, NO paresthesias PMH: DM II; HTN; HLD; Benign Essential tremors. PSH: Endoscopy; Cardiac Cath 2010; Cholecystectomy > 20 years ago; Bilateral Knee replacement SH: No smoking; No Alcohol use; No illegal drug use; Live with Family FH: No Hereditary diseases Allergies: NKDA Medications: Please see individual Assessment and Plan below HEENT: NCA, EOMI, PERRLA, NO cervical lymphadenopathy, NO thyromegaly, Oral Mucosa and Nasal Turbinates are moist, NO Pharyngeal Erythema/Exudate Cardiology: Systolic Ejection Murmur heard loudest along left lower sternal border Respiratory: CTA B/L, NO R/R/W GI: BSx4, Soft, NT, Central Obesity, NO HSM, NO Guarding/NO Rebound Tenderness Ext: Right Arm in soft cast, Pulses are strong and equal in the bilateral LE and strong in the Left UE, Capillary Refill is 2 seconds in all extremities, NO edema in Left UE and B/L LE, Sensation in all extremities is intact and patient able to move all of the fingers of the Right UE Neuro: CN II through XII are grossly intact Assessement and Plan: 1). Right Elbow (Radial Head and Proximal Ulna) Post Op Day #[address] Mares Percocet 5/325 mg 1 tab PO Q6H PRN Moderate Pain Icing PRN 2). Right Displaced Distal Radial Fracture S/P Closed Reduction with Percutaneous Pin Fixation 01/01/17 2). Hx Suspected UTI UA cloudy with LE +, WBC 45 and many bacteria however Urine Culture 12/21/16 did not show any growth therefore the Rocephin was discontinued Currently NO complaints of burning/pain with urination 3). Hx Dehydration Resolved 4). Hx Neutrophilic Leukocytosis Most likely reactive WBC normalized Resolved 5). Hx DM II with Hyperglycemia Reguar insulin sliding scale with accuchecks Cardiac and Diabetic diet Metformin 500 mg PO 2x/day Controlled 6). Hx HTN Propranol 120mg PO daily HCTZ 12.5 mg PO 1x/day Controlled 7). Hx HLD Atorvastatin 10 mg PO 1x/day 8). Hx Essential Tremors Primidone 250 mg PO 1x/day Propranolol 120 mg PO 1x/day 9). Prophylactic Measures B/L Jose Manuel Stockings Xanax 0.25 mg PO Q8H PRN Anxiety Xanax 0.25 mg PO 1x/day Protonix 40 mg PO 1x/day Present on Admission - Present on Admission Any Indicators Present on Admission: Yes History of DVT/PE: Yes History of Uncontrolled Diabetes: Yes Urinary Catheter: No Decubitus Ulcer Present: No Review of Systems - Review of Systems Review of Systems: PLEASE SEE HPI Past Patient History - Infectious Disease Hx of Infectious Diseases: None - Tetanus Immunizations Tetanus Immunization: Unknown - Past Medical History & Family History Past Medical History?: Yes Pertinent Family History: PLEASE SEE HPI - Past Social History Smoking Status: Never Smoked - CARDIAC Hx Cardiac Disorders: Yes Hx Hypercholesterolemia: Yes Hx Hypertension: Yes Other/Comment: CAD - PULMONARY Hx Respiratory Disorders: No - NEUROLOGICAL Hx Neurological Disorder: No - HEENT Hx HEENT Problems: No - RENAL Hx Chronic Kidney Disease: No - ENDOCRINE/METABOLIC Hx Endocrine Disorders: Yes Hx Diabetes Mellitus Type 1: Yes - HEMATOLOGICAL/ONCOLOGICAL Hx Blood Disorders: No Hx Blood Transfusions: No - INTEGUMENTARY Hx Dermatological Problems: No - MUSCULOSKELETAL/RHEUMATOLOGICAL Hx Musculoskeletal Disorders: Yes Hx Falls: Yes Other/Comment: FX OF ELBOW/WRIST - GASTROINTESTINAL Hx Gastrointestinal Disorders: No - GENITOURINARY/GYNECOLOGICAL Hx Genitourinary Disorders: No - PSYCHIATRIC Hx Emotional Abuse: No Hx Physical Abuse: No - SURGICAL HISTORY Hx Surgeries: Yes Other/Comment: MURTAZA KNEE REPLACEMENT-21 YEARS AGO;GALLBLADDER-15 YEARS AGO;R ELBOW SURGERY-10 DAYSGO - ANESTHESIA Hx Anesthesia: Yes Hx Anesthesia Reactions: No Hx Malignant Hyperthermia: No Has any member of the family had a problem w/ anesthesia?: No Meds Allergies/Adverse Reactions: Allergies Allergy/AdvReac Type Severity Reaction Status Date / Time No Known Allergies Allergy Verified 12/25/16 15:33 Physical Exam - Constitutional Additional comments: PLEASE SEE ABOVE Results - Vital Signs Recent Vital Signs: Last Vital Signs Temp 98.8 F 01/01/17 16:40 Pulse 67 01/01/17 16:40 Resp 20 01/01/17 16:40 BP 106/65 01/01/17 16:40 Pulse Ox 98 01/01/17 16:40 - Labs Labs: Laboratory Results - last 24 hr 01/01/17 09:27 POC Glucose (mg/dL) 119 H
[2017-01-01] MEDS: Insulin Regular 100 units/ml SC SCH (21:17)
[2017-01-01] MEDS ORDERED: PROPRANOLOL 120 MG PO SCH (22:00)
[2017-01-02] MEDS: Oxycodone/Acetaminophen 5/325 mg Tab PO PRN ×2 (00:30→07:39)
[2017-01-02] MEDS: Insulin Regular 100 units/ml SC SCH ×2 (07:33→12:36)
[2017-01-02 07:37] VITALS: BP 139/72; PULSE 67; TEMP 99; O2SAT 98
[2017-01-02 07:56] LABS: BASO # 0.1 K/uL (0.0-0.2); BASO % 0.9 % (0.0-2.0); EOS # 0.3 K/uL (0.0-0.7); EOS % 4.8 % (0.0-4.0); HEMATOCRIT 32.4 % (34.0-47.0); LYMPH # 1.4 K/uL (1.0-4.3); LYMPH % 19.8 % (20.0-40.0); MEAN CELL VOLUME 97.6 fl (81.0-99.0); MEAN CORPUSCULAR HEMOGLOBIN 33.3 pg (27.0-31.0); MEAN CORPUSCULAR HGB CONC 34.1 g/dL (33.0-37.0); MEAN PLATELET VOLUME 7.5 fl (7.2-11.7); MONO # 0.8 K/uL (0.0-0.8); MONO % 10.8 % (0.0-10.0); NEUT # 4.4 K/uL (1.8-7.0); NEUT % 63.7 % (50.0-75.0); NRBC % 0.1 % (0.0-0.0); RED CELL DISTRIBUTION WIDTH 14.6 % (11.5-14.5)
[2017-01-02 08:02] LABS: ALB/GLOB RATIO 0.9 (1.0-2.1); ALKALINE PHOSPHATASE 112 U/L (38-126); ALT/SGPT 19 U/L (9-52); AST/SGOT 33 U/L (14-36); BILIRUBIN,TOTAL 0.5 mg/dl (0.2-1.3); BLOOD UREA NITROGEN 13 mg/dl (7-17); CARBON DIOXIDE 27 mmol/L (22-30); CHLORIDE 99 mmol/L (98-107); GFR AFRICAN-AMERICAN > 60; GLUCOSE,RANDOM 117 mg/dL (65-105); POTASSIUM 4.1 MMOL/L (3.6-5.0); SODIUM 138 mmol/l (132-148); TOTAL PROTEIN 6.7 G/DL (6.3-8.2)
--- NOTE | 2017-01-02 08:25 | PCM.SURG1 ---
Surgeon's Initial Post Op Note - Surgeon's Notes Surgeon: Irineo Certification And Selection Specialist: JOSE Casas Type of Anesthesia: General Endo Anesthesia Administered By: DR Nieves Pre-Operative Diagnosis: displaced R distal radius fx Operative Findings: as above Post-Operative Diagnosis: as above Operation Performed: closed reduction perc pin fication distal radius fx R wrist. appl external fixator. manipulation r elbow under anaesthesia /fluoro Specimen/Specimens Removed: n/a Estimated Blood Loss: EBL {In ML}: 5 Blood Products Given: N/A Drains Used: No Drains Post-Op Condition: Good Date of Surgery/Procedure: 01/01/17 Time of Surgery/Procedure: 08:00 (time in foom 7:30/anaeatshesia indcution time )
--- NOTE | 2017-01-02 08:27 | CP.PCM.PN ---
Subjective - Date & Time of Evaluation Date of Evaluation: 01/02/17 Time of Evaluation: 08:15 - Subjective Subjective: S- pt comfrotable/post op incisional discomfort Objective - Vital Signs/Intake and Output Vital Signs (last 24 hours): Temp Pulse Resp BP Pulse Ox 99 F 67 20 139/72 98 01/02/17 07:36 01/02/17 07:36 01/02/17 07:36 01/02/17 07:36 01/02/17 07:36 - Medications Medications: Current Medications Alprazolam (Xanax) 0.25 mg PO DAILY [facility] Stop: 01/09/17 09:01 Alprazolam (Xanax) 0.25 mg PO Q8 PRN PRN Reason: Anxiety Stop: 01/08/17 17:18 Last Admin: 01/01/17 21:07 Dose: 0.25 mg Atorvastatin Calcium (Lipitor) 10 mg PO HS [facility] Last Admin: 01/01/17 21:07 Dose: 10 mg Hydrochlorothiazide (Microzide) 12.5 mg PO DAILY [facility] Lactated Ringer's (Lactated Ringer's) 1,000 mls @ 100 mls/hr IV .Q10H [facility] Insulin Human Regular (Humulin R) 0 units SC ACHS [facility] Last Admin: 01/02/17 07:33 Dose: Not Given Metformin HCl (Glucophage) 500 mg PO BIDWM [facility] Oxycodone/Acetaminophen (Percocet 5/325 Mg Tab) 1 tab PO Q6 PRN PRN Reason: Pain, moderate (4-7) Stop: 01/04/17 17:13 Last Admin: 01/02/17 07:39 Dose: 1 tab Pantoprazole Sodium (Protonix Ec Tab) 40 mg PO DAILY [facility] Primidone (Mysoline) 250 mg PO DAILY [facility] Propranolol HCl (Inderal La) 120 mg PO HS [facility] Last Admin: 01/01/17 21:08 Dose: 120 mg - Labs Labs: 01/02/17 06:40 01/02/17 06:40 Assessment and Plan - Assessment and Plan (Free Text) Assessment: A- s/p pin fixation distal radius fx/applkx ex fix P orthopedicaLLY STABLE
[2017-01-02] MEDS ORDERED: Pantoprazole 40 mg EC Tab PO SCH (09:00)
--- NOTE | 2017-01-02 10:27 | CP.PCM.CON ---
History of Present Illness - History of Present Illness History of Present Illness: THE PATIENT IS AN 86 YEAR OLD FEMALE WITH A HISTORY OF HYPERTENSION, HYPERLIPIDEMIA AND TYPE 2 DM. SHE FELL A COUPLE OF WEEKS AGO AND SUSTAINED 2 FRACTURES OF THE RIGHT RADIUS AND A RIGHT ULNA FRACTURE. SHE HAD ORTHOPEDIC SURGERY OF THE PROXIMAL RIGHT RADIUS AND RIGHT ULNA AT THAT TIME. SHE WENT TO TCU AND YESTERDAY HAD SURGERY TO REPAIR HER RIGHT RADIUS DISTAL FRACTURE. SHE DID WELL DURING SURGERY AND IS NOW ON . DR GONZALES ASKED ME TO FOLLW HER AGAIN ON THIS ADMISSION. SHE FEELS WELL OTHER THAT HER SURGICAL DISCOMFORT. Past Patient History - Infectious Disease Hx of Infectious Diseases: None - Tetanus Immunizations Tetanus Immunization: Unknown - Past Medical History & Family History Past Medical History?: Yes - Past Social History Smoking Status: Never Smoked - CARDIAC Hx Cardiac Disorders: Yes Hx Hypercholesterolemia: Yes Hx Hypertension: Yes Other/Comment: CAD - PULMONARY Hx Respiratory Disorders: No - NEUROLOGICAL Hx Neurological Disorder: No - HEENT Hx HEENT Problems: No - RENAL Hx Chronic Kidney Disease: No - ENDOCRINE/METABOLIC Hx Endocrine Disorders: Yes Hx Diabetes Mellitus Type 1: Yes - HEMATOLOGICAL/ONCOLOGICAL Hx Blood Disorders: No Hx Blood Transfusions: No - INTEGUMENTARY Hx Dermatological Problems: No - MUSCULOSKELETAL/RHEUMATOLOGICAL Hx Musculoskeletal Disorders: Yes Hx Falls: Yes Other/Comment: FX OF ELBOW/WRIST - GASTROINTESTINAL Hx Gastrointestinal Disorders: No - GENITOURINARY/GYNECOLOGICAL Hx Genitourinary Disorders: No - PSYCHIATRIC Hx Emotional Abuse: No Hx Physical Abuse: No - SURGICAL HISTORY Hx Surgeries: Yes Other/Comment: MURTAZA KNEE REPLACEMENT-21 YEARS AGO;GALLBLADDER-15 YEARS AGO;R ELBOW SURGERY-10 DAYSGO - ANESTHESIA Hx Anesthesia: Yes Hx Anesthesia Reactions: No Hx Malignant Hyperthermia: No Has any member of the family had a problem w/ anesthesia?: No Meds Allergies/Adverse Reactions: Allergies Allergy/AdvReac Type Severity Reaction Status Date / Time No Known Allergies Allergy Verified 12/25/16 15:33 - Medications Medications: Current Medications Alprazolam (Xanax) 0.25 mg PO DAILY [facility] Stop: 01/09/17 09:01 Last Admin: 01/02/17 08:46 Dose: 0.25 mg Alprazolam (Xanax) 0.25 mg PO Q8 PRN PRN Reason: Anxiety Stop: 01/08/17 17:18 Last Admin: 01/01/17 21:07 Dose: 0.25 mg Atorvastatin Calcium (Lipitor) 10 mg PO HS [facility] Last Admin: 01/01/17 21:07 Dose: 10 mg Hydrochlorothiazide (Microzide) 12.5 mg PO DAILY [facility] Last Admin: 01/02/17 08:47 Dose: 12.5 mg Lactated Ringer's (Lactated Ringer's) 1,000 mls @ 100 mls/hr IV .Q10H [facility] Insulin Human Regular (Humulin R) 0 units SC ACHS [facility] Last Admin: 01/02/17 07:33 Dose: Not Given Metformin HCl (Glucophage) 500 mg PO BIDWM [facility] Last Admin: 01/02/17 08:47 Dose: 500 mg Oxycodone/Acetaminophen (Percocet 5/325 Mg Tab) 1 tab PO Q6 PRN PRN Reason: Pain, moderate (4-7) Stop: 01/04/17 17:13 Last Admin: 01/02/17 07:39 Dose: 1 tab Pantoprazole Sodium (Protonix Ec Tab) 40 mg PO DAILY [facility] Last Admin: 01/02/17 08:47 Dose: 40 mg Primidone (Mysoline) 250 mg PO DAILY [facility] Last Admin: 01/02/17 08:47 Dose: 250 mg Propranolol HCl (Inderal La) 120 mg PO HS [facility] Last Admin: 01/01/17 21:08 Dose: 120 mg Physical Exam - Respiratory Exam Respiratory Exam: Clear to Auscultation Bilateral - Cardiovascular Exam Cardiovascular Exam: REGULAR RHYTHM, +S1, +S2 - Additional Findings Additional findings: H/H 11/32 K+ 4.1 GLUCOSE 117 Results - Vital Signs Recent Vital Signs: Last Vital Signs Temp 99 F 01/02/17 07:36 Pulse 67 01/02/17 07:36 Resp 20 01/02/17 07:36 BP 139/72 01/02/17 07:36 Pulse Ox 98 01/02/17 07:36 - Labs Result Diagrams: 01/02/17 06:40 01/02/17 06:40 Labs: Laboratory Results - last 24 hr 01/01/17 01/02/17 01/02/17 21:09 06:29 06:40 WBC 7.0 RBC 3.33 L Hgb 11.1 L Hct 32.4 L MCV 97.6 MCH 33.3 H MCHC 34.1 RDW 14.6 H Plt Count 373 MPV 7.5 Neut % (Auto) 63.7 Lymph % (Auto) 19.8 L Hitchcock % (Auto) 10.8 H Eos % (Auto) 4.8 H Baso % (Auto) 0.9 Neut # 4.4 Lymph # 1.4 Hitchcock # 0.8 Eos # 0.3 Baso # 0.1 Sodium 138 Potassium 4.1 Chloride 99 Carbon Dioxide 27 Anion Gap 16 BUN 13 Creatinine 0.7 Est GFR ( Amer) > 60 Est GFR (Non-Af Amer) > 60 POC Glucose (mg/dL) 161 H 116 H Random Glucose 117 H Calcium 9.0 Total Bilirubin 0.5 AST 33 ALT 19 Alkaline Phosphatase 112 Total Protein 6.7 Albumin 3.2 L Globulin 3.5 Albumin/Globulin Ratio 0.9 L Assessment & Plan - Assessment and Plan (Free Text) Assessment: HYPERTENSION HYPERLIPIDEMIA TYPE 2 DM S/P SURGICAL OF RIGHT RADIUS DISTAL FRACTURE Plan: CONTINUE PROPRANOLOL, ATORVASTATIN AND GLUCOPHAGE
--- NOTE | 2017-01-02 16:25 | CP.PCM.DIS ---
Provider - Provider Date of Admission: 01/01/17 21:16 Attending physician: Konrad Nichols MD Consults: Ortho Dr. Cabello cardiology consult Dr. Ricketts Time Spent in preparation of Discharge (in minutes): 15 Hospital Course - Lab Results Lab Results: Most Recent Lab Values WBC 7.0 K/uL (4.8-10.8) 01/02/17 06:40 RBC 3.33 Mil/uL (3.80-5.20) L 01/02/17 06:40 Hgb 11.1 g/dL (12.0-16.0) L 01/02/17 06:40 Hct 32.4 % (34.0-47.0) L 01/02/17 06:40 MCV 97.6 fl (81.0-99.0) 01/02/17 06:40 MCH 33.3 pg (27.0-31.0) H 01/02/17 06:40 MCHC 34.1 g/dL (33.0-37.0) 01/02/17 06:40 RDW 14.6 % (11.5-14.5) H 01/02/17 06:40 Plt Count 373 K/uL (130-400) 01/02/17 06:40 MPV 7.5 fl (7.2-11.7) 01/02/17 06:40 Neut % (Auto) 63.7 % (50.0-75.0) 01/02/17 06:40 Lymph % (Auto) 19.8 % (20.0-40.0) L 01/02/17 06:40 Cedar % (Auto) 10.8 % (0.0-10.0) H 01/02/17 06:40 Eos % (Auto) 4.8 % (0.0-4.0) H 01/02/17 06:40 Baso % (Auto) 0.9 % (0.0-2.0) 01/02/17 06:40 Neut # 4.4 K/uL (1.8-7.0) 01/02/17 06:40 Lymph # 1.4 K/uL (1.0-4.3) 01/02/17 06:40 Cedar # 0.8 K/uL (0.0-0.8) 01/02/17 06:40 Eos # 0.3 K/uL (0.0-0.7) 01/02/17 06:40 Baso # 0.1 K/uL (0.0-0.2) 01/02/17 06:40 Sodium 138 mmol/l (132-148) 01/02/17 06:40 Potassium 4.1 MMOL/L (3.6-5.0) 01/02/17 06:40 Chloride 99 mmol/L (98-107) 01/02/17 06:40 Carbon Dioxide 27 mmol/L (22-30) 01/02/17 06:40 Anion Gap 16 (10-20) 01/02/17 06:40 BUN 13 mg/dl (7-17) 01/02/17 06:40 Creatinine 0.7 mg/dL (0.7-1.2) 01/02/17 06:40 Est GFR ( Amer) > 60 01/02/17 06:40 Est GFR (Non-Af Amer) > 60 01/02/17 06:40 POC Glucose (mg/dL) 107 mg/dL (65-110) 01/02/17 12:01 Random Glucose 117 mg/dL (65-105) H 01/02/17 06:40 Calcium 9.0 mg/dL (8.4-10.2) 01/02/17 06:40 Total Bilirubin 0.5 mg/dl (0.2-1.3) 01/02/17 06:40 AST 33 U/L (14-36) 01/02/17 06:40 ALT 19 U/L (9-52) 01/02/17 06:40 Alkaline Phosphatase 112 U/L (38-126) 01/02/17 06:40 Total Protein 6.7 G/DL (6.3-8.2) 01/02/17 06:40 Albumin 3.2 g/dL (3.5-5.0) L 01/02/17 06:40 Globulin 3.5 gm/dL (2.2-3.9) 01/02/17 06:40 Albumin/Globulin Ratio 0.9 (1.0-2.1) L 01/02/17 06:40 - Hospital Course Hospital Course: 86 year old female was admitted to [facility] 3/26/17 s/p falling down 15 flight of stairs. X Rays here at [facility] indicated fracture of the right radial head, right proximal ulna, and right distal radial fracture. She underwent Right Radial Head Transplant and Right Proximal Ulnar ORIF by Orthopedics Dr. Mares . She was then transferred to [facility] TCU on 12/25/16 for PT/OT. Patient then underwent Closed Reduction with Percutaneous Pin Fixation of Displaced Distal Right Radial Fracture by Dr. Mares on 01/01/17. Post op she is doing well. jesu discharge to TCU to continue her physical therapy 1 Right Displaced Distal Radial Fracture S/P Closed Reduction with Percutaneous Pin Fixation 01/01/17( post op day 1) Juan Luis bandage in place Keep arm elevated pain management PRN, ice packs D/c to TCu for physical therapy Ortho follow up with Dr. Cabello Continue incentive spirometry DVt prophylaxis with Lovenox 2 Right Elbow (Radial Head and Proximal Ulna) Post Op Day #[address] Mares Continue pain management with Percocet PRN Icing PRN 3. DM II controlled Reguar insulin sliding scale with accuchecks Cardiac and Diabetic diet Metformin 500 mg PO 2x/day 4. HTN Controlled Propranol 120mg PO daily HCTZ 12.5 mg PO 1x/day 5 HLD on Atorvastatin 6. Essential Tremors continue Primidone and Propranolol 7.DVt prophylaxis lovenox Discharge Exam - Head Exam Head Exam: ATRAUMATIC, NORMOCEPHALIC - Eye Exam Eye Exam: EOMI, PERRL Pupil Exam: NORMAL ACCOMODATION - ENT Exam ENT Exam: Normal Exam - Neck Exam Neck exam: Full Rom, Normal Inspection - Respiratory Exam Respiratory Exam: Clear to PA & Lateral, NORMAL BREATHING PATTERN. absent: Rhonchi, Wheezes, Respiratory Distress - Cardiovascular Exam Cardiovascular Exam: REGULAR RHYTHM, RRR, +S1, +S2. absent: JVD - GI/Abdominal Exam GI & Abdominal Exam: Normal Bowel Sounds, Soft. absent: Distended, Guarding, Rebound, Tenderness - Rectal Exam Rectal Exam: Deferred - Extremities Exam Extremities exam: full ROM, normal capillary refill, pedal pulses present Additional comments: right arm with dressing in place pins visible to distal arm warm to touch, capillary refill intact sensation intact - Back Exam Back exam: NORMAL INSPECTION - Neurological Exam Neurological exam: Alert, CN II-XII Intact, Oriented x3 Additional comments: hand tremors present at rest and with movement - Psychiatric Exam Psychiatric exam: Normal Affect - Skin Skin Exam: Dry, Normal Color, Warm Discharge Plan - Follow Up Plan Condition: GOOD Disposition: TRANSF TO SNF Patient education suggested?: No Instructions: ORIF of a Wrist Fracture (DC) Referrals: Wiley Cabello III, MD [Staff Provider] -
--- NOTE | 2017-01-03 16:35 | RAD ---
PROCEDURE: ORIF right elbow and wrist HISTORY: RIGHT WRIST RIGHT ELBOW COMPARISON: Not available TECHNIQUE: Intraoperative fluoroscopy was provided for orthopedic fixation of the elbow and wrist. Total time of fluoroscopy was 22.0 seconds. FINDINGS: Seven fluoroscopic spot films are submitted. Films are on file for orthopedic review. IMPRESSION: Fluoroscopy provided.
== END 2017-01-02 15:53 ==
LOC: H.OPSURG 06:29 → H.MEDSURG1 16:20 → INTOOBSV 21:16 → H.OPSURG 22:19
PROVIDERS: ADMIT Family Medicine; ATTEND Family Medicine
PROC: 0PSH35Z Reposition Right Radius with External Fixation Device, Percutaneous Approach (ICD-10-PCS; principal; 2017-01-01 07:45)
DX: S52.501A Unspecified fracture of the lower end of right radius, initial encounter for closed fracture (principal); E11.9 Type 2 diabetes mellitus without complications; I10 Essential (primary) hypertension; W10.9XXA Fall (on) (from) unspecified stairs and steps, initial encounter; Y93.9 Activity, unspecified; Y92.9 Unspecified place or not applicable; E78.5 Hyperlipidemia, unspecified; G25.0 Essential tremor; I25.10 Atherosclerotic heart disease of native coronary artery without angina pectoris; Z98.61 Coronary angioplasty status; Z96.653 Presence of artificial knee joint, bilateral
CPT/HCPCS: 20690; 25606; 36415; 73070; 73100; 80053; 82948; 85025; 97161; C1713; G0378; G8978; G8979; J0330; J0690; J1170; J2250; J2405; J2710; J2765; J3010; J7030; J7120

== ENCOUNTER 2017-01-02 16:29 | Inpatient (IN) | payer MEDICARE ==
[2017-01-02 17:06] VITALS: BMI 33.6
[2017-01-02] MEDS: Oxycodone/Acetaminophen 5/325 mg Tab PO PRN (22:10)
[2017-01-02] MEDS: Insulin Regular 100 units/ml SC SCH (22:21)
[2017-01-02 23:09] VITALS: RESP 20
[2017-01-03] MEDS: Insulin Regular 100 units/ml SC SCH ×4 (07:38→21:52)
[2017-01-03 08:15] LABS: BASO # 0.1 K/uL (0.0-0.2); EOS # 0.3 K/uL (0.0-0.7); EOS % 4.9 % (0.0-4.0); HEMATOCRIT 31.9 % (34.0-47.0); LYMPH # 1.3 K/uL (1.0-4.3); LYMPH % 19.7 % (20.0-40.0); MEAN CELL VOLUME 98.5 fl (81.0-99.0); MEAN CORPUSCULAR HEMOGLOBIN 32.5 pg (27.0-31.0); MEAN PLATELET VOLUME 7.3 fl (7.2-11.7); MONO # 0.7 K/uL (0.0-0.8); MONO % 10.7 % (0.0-10.0); NEUT # 4.3 K/uL (1.8-7.0); NEUT % 63.7 % (50.0-75.0); NRBC % 0.2 % (0.0-0.0); RED CELL DISTRIBUTION WIDTH 14.5 % (11.5-14.5); WHITE BLOOD COUNT 6.7 K/uL (4.8-10.8)
[2017-01-03] MEDS: Oxycodone/Acetaminophen 5/325 mg Tab PO PRN ×2 (09:08→21:33)
[2017-01-03] MEDS: PROPRANOLOL 120 MG PO SCH (09:09)
--- NOTE | 2017-01-03 10:47 | CP.PCM.HP ---
History of Present Illness - History of Present Illness History of Present Illness: 86 year old female was admitted to [facility] 12/21/16 s/p falling down 15 flight of stairs. X Rays here at [facility] indicated fracture of the right radial head, right proximal ulna, and right distal radial fracture. She underwent Right Radial Head Transplant and Right Proximal Ulnar ORIF by Orthopedics Dr. Mares . She was then transferred to [facility] TCU on 12/25/16 for PT/OT. Patient then underwent Closed Reduction with Percutaneous Pin Fixation of Displaced Distal Right Radial Fracture by Dr. Mares on 01/01/17. Post op she is doing well. Patient admitted to TCU to continue her physical therapy. PMH: DM II; HTN; HLD; Benign Essential tremors. PSH: Endoscopy; Cardiac Cath 2010; Cholecystectomy > 20 years ago; Bilateral Knee replacement FH: No Hereditary diseases SH: No smoking; No Alcohol use; No illegal drug use; Live with Family Medications: Per reconciliation Allergies: NKDA Temp Pulse Resp BP Pulse Ox 98.4 F 68 20 132/73 91 L 01/03/17 08:38 01/03/17 09:09 01/03/17 08:38 01/03/17 09:09 01/03/17 08:38 HEENT: NCAT, EOMI, PERRLA Cardiology: RRR +S1S2 Respiratory: CTAB, NO R/R/W GI: BSx4, Soft, NT, Central Obesity, No HSM No mass Ext: Pulses are strong and equal in the bilateral LE, Capillary Refill is 2 seconds in all extremities, Sensation in all extremities is intact and patient able to move all of the fingers of the Right UE Neuro: CN II through XII are grossly intact Psych: normal mood and affect Skin: warm and dry 01/03/17 06:30 86 year old female was admitted to [facility] 12/21/16 s/p falling down 15 flight of stairs. X Rays at [facility] indicated fracture of the right radial head, right proximal ulna, and right distal radial fracture. She underwent Right Radial Head Transplant and Right Proximal Ulnar ORIF by Orthopedics Dr. Cabello . She was then transferred to [facility] TCU on 12/25/16 for PT/OT. Patient then underwent Closed Reduction with Percutaneous Pin Fixation of Displaced Distal Right Radial Fracture by Dr. Mares on 01/01/17. Post op she is doing well. Patient admitted to TCU to continue her physical therapy. 1 Right Displaced Distal Radial Fracture S/P Closed Reduction with Percutaneous Pin Fixation 01/01/17 POD2 Juan Luis bandage in place Keep arm elevated pain management PRN, ice packs TCU for physical therapy Ortho follow up with Dr. Cabello Continue incentive spirometry DVt prophylaxis with Lovenox 2 Right Elbow (Radial Head and Proximal Ulna) Post Op Day #[address] Mares Continue pain management with Percocet PRN Icing PRN 3. DM II controlled Reguar insulin sliding scale with accuchecks Cardiac and Diabetic diet Metformin 500 mg PO 2x/day 4. HTN Controlled Propranol 120mg PO daily HCTZ 12.5 mg PO 1x/day 5 HLD on Atorvastatin 6. Essential Tremors continue Primidone and Propranolol 7.DVt prophylaxis lovenox Present on Admission - Present on Admission Any Indicators Present on Admission: No Past Patient History - Infectious Disease Hx of Infectious Diseases: None - Tetanus Immunizations Tetanus Immunization: Unknown - Past Medical History & Family History Past Medical History?: Yes - Past Social History Smoking Status: Never Smoked - CARDIAC Hx Cardiac Disorders: Yes Hx Hypercholesterolemia: Yes Hx Hypertension: Yes Other/Comment: CAD - PULMONARY Hx Respiratory Disorders: No - NEUROLOGICAL Hx Neurological Disorder: No - HEENT Hx HEENT Problems: No - RENAL Hx Chronic Kidney Disease: No - ENDOCRINE/METABOLIC Hx Endocrine Disorders: Yes Hx Diabetes Mellitus Type 1: Yes - HEMATOLOGICAL/ONCOLOGICAL Hx Blood Disorders: No Hx Blood Transfusions: No - INTEGUMENTARY Hx Dermatological Problems: No - MUSCULOSKELETAL/RHEUMATOLOGICAL Hx Musculoskeletal Disorders: Yes Hx Falls: Yes Other/Comment: FX OF ELBOW/WRIST - GASTROINTESTINAL Hx Gastrointestinal Disorders: No - GENITOURINARY/GYNECOLOGICAL Hx Genitourinary Disorders: No - PSYCHIATRIC Hx Emotional Abuse: No Hx Physical Abuse: No - SURGICAL HISTORY Hx Surgeries: Yes Other/Comment: MURTAZA KNEE REPLACEMENT-21 YEARS AGO;GALLBLADDER-15 YEARS AGO;R ELBOW SURGERY-10 DAYSGO - ANESTHESIA Hx Anesthesia: Yes Hx Anesthesia Reactions: No Hx Malignant Hyperthermia: No Has any member of the family had a problem w/ anesthesia?: No Meds Allergies/Adverse Reactions: Allergies Allergy/AdvReac Type Severity Reaction Status Date / Time No Known Allergies Allergy Verified 12/25/16 15:33 Results - Vital Signs Recent Vital Signs: Last Vital Signs Temp 98.4 F 01/03/17 08:38 Pulse 68 01/03/17 09:09 Resp 20 01/03/17 08:38 BP 132/73 01/03/17 09:09 Pulse Ox 91 L 01/03/17 08:38 - Labs Result Diagrams: 01/03/17 06:30 Labs: Laboratory Results - last 24 hr 01/02/17 01/03/17 01/03/17 21:27 06:05 06:30 WBC 6.7 RBC 3.23 L Hgb 10.5 L Hct 31.9 L MCV 98.5 MCH 32.5 H MCHC 33.0 RDW 14.5 Plt Count 359 MPV 7.3 Neut % (Auto) 63.7 Lymph % (Auto) 19.7 L Schley % (Auto) 10.7 H Eos % (Auto) 4.9 H Baso % (Auto) 1.0 Neut # 4.3 Lymph # 1.3 Schley # 0.7 Eos # 0.3 Baso # 0.1 POC Glucose (mg/dL) 111 H 100
--- NOTE | 2017-01-03 16:01 | CP.PCM.CON ---
History of Present Illness - History of Present Illness History of Present Illness: 86 YEAR OLD FEMALE WHO HAS A HISTORY OF HYPERTENSION, HYPERLIPIDEMIA AND TYPE 2 DM. SHE FELL ABOUT TWO WEEKS AGO AND BROKE ABDI RIGHT RADIUS AND ULNA. SHE HAS PROXIMAL RADIUS SURGERY AND ULNA SURGERY 2 WEEKS AGO AND THEN HAD DISTAL RIGHT RADIUS SURGERY 2 DAYS AGO. SHE IS NOW IN TCU FOR REHAB. CARDIOLOGY WAS ASKED TO FOLLOW HER IN TCU BY DR GONZALES. SHE FEELS WELL EXCEPT FOR SURGICAL SITE DISCOMFORT. SHE DENIES CHEST PAIN OR SOB. Past Patient History - Infectious Disease Hx of Infectious Diseases: None - Tetanus Immunizations Tetanus Immunization: Unknown - Past Medical History & Family History Past Medical History?: Yes - Past Social History Smoking Status: Never Smoked - CARDIAC Hx Cardiac Disorders: Yes Hx Hypercholesterolemia: Yes Hx Hypertension: Yes - PULMONARY Hx Respiratory Disorders: No - NEUROLOGICAL Hx Neurological Disorder: No - HEENT Hx HEENT Problems: No - RENAL Hx Chronic Kidney Disease: No - ENDOCRINE/METABOLIC Hx Diabetes Mellitus Type 1: Yes Hx Diabetes Mellitus Type 2: Yes - HEMATOLOGICAL/ONCOLOGICAL Hx Blood Disorders: No Hx Blood Transfusions: No - INTEGUMENTARY Hx Dermatological Problems: No - MUSCULOSKELETAL/RHEUMATOLOGICAL Hx Musculoskeletal Disorders: Yes Hx Falls: Yes Other/Comment: FX OF ELBOW/WRIST - GASTROINTESTINAL Hx Gastrointestinal Disorders: No - GENITOURINARY/GYNECOLOGICAL Hx Genitourinary Disorders: No - PSYCHIATRIC Hx Emotional Abuse: No Hx Physical Abuse: No - SURGICAL HISTORY Hx Surgeries: Yes Other/Comment: MURTAZA KNEE REPLACEMENT-21 YEARS AGO;GALLBLADDER-15 YEARS AGO;R ELBOW SURGERY-10 DAYSGO - ANESTHESIA Hx Anesthesia: Yes Hx Anesthesia Reactions: No Hx Malignant Hyperthermia: No Has any member of the family had a problem w/ anesthesia?: No Meds Allergies/Adverse Reactions: Allergies Allergy/AdvReac Type Severity Reaction Status Date / Time No Known Allergies Allergy Verified 12/25/16 15:33 - Medications Medications: Current Medications Alprazolam (Xanax) 0.25 mg PO TID [facility] Stop: 01/10/17 09:01 Last Admin: 01/03/17 13:16 Dose: 0.25 mg Atorvastatin Calcium (Lipitor) 10 mg PO DAILY [facility] Last Admin: 01/03/17 09:10 Dose: 10 mg Enoxaparin Sodium (Lovenox) 40 mg SC DAILY [facility] PRN Reason: Protocol Hydrochlorothiazide (Microzide) 12.5 mg PO DAILY [facility] Last Admin: 01/03/17 09:10 Dose: 12.5 mg Insulin Human Regular (Humulin R) 0 units SC ACHS [facility] PRN Reason: Protocol Last Admin: 01/03/17 13:08 Dose: Not Given Metformin HCl (Glucophage) 500 mg PO BIDWM [facility] Last Admin: 01/03/17 09:09 Dose: 500 mg Oxycodone/Acetaminophen (Percocet 5/325 Mg Tab) 2 tab PO Q6 PRN PRN Reason: Pain, severe (8-10) Stop: 01/05/17 22:01 Last Admin: 01/03/17 09:08 Dose: 2 tab Primidone (Mysoline) 250 mg PO DAILY [facility] Last Admin: 01/03/17 09:09 Dose: 250 mg Propranolol HCl (Inderal La) 120 mg PO DAILY [facility] Last Admin: 01/03/17 09:09 Dose: 120 mg Physical Exam - Respiratory Exam Respiratory Exam: Clear to Auscultation Bilateral - Cardiovascular Exam Cardiovascular Exam: REGULAR RHYTHM, +S1, +S2 Results - Vital Signs Recent Vital Signs: Last Vital Signs Temp 98.4 F 01/03/17 08:38 Pulse 68 01/03/17 09:09 Resp 20 01/03/17 08:38 BP 132/73 01/03/17 09:09 Pulse Ox 91 L 01/03/17 08:38 - Labs Result Diagrams: 01/03/17 06:30 Labs: Laboratory Results - last 24 hr 01/02/17 01/03/17 01/03/17 21:27 06:05 06:30 WBC 6.7 RBC 3.23 L Hgb 10.5 L Hct 31.9 L MCV 98.5 MCH 32.5 H MCHC 33.0 RDW 14.5 Plt Count 359 MPV 7.3 Neut % (Auto) 63.7 Lymph % (Auto) 19.7 L Barnes % (Auto) 10.7 H Eos % (Auto) 4.9 H Baso % (Auto) 1.0 Neut # 4.3 Lymph # 1.3 Barnes # 0.7 Eos # 0.3 Baso # 0.1 POC Glucose (mg/dL) 111 H 100 01/03/17 11:47 WBC RBC Hgb Hct MCV MCH MCHC RDW Plt Count MPV Neut % (Auto) Lymph % (Auto) Barnes % (Auto) Eos % (Auto) Baso % (Auto) Neut # Lymph # Barnes # Eos # Baso # POC Glucose (mg/dL) 94 Assessment & Plan - Assessment and Plan (Free Text) Assessment: S/P SURGERY FOR RIGHT RADIUS AND ULNAR FRACTURES HYPERTENSION HYPERLIPIDEMIA TYPE 2 DM Plan: CONTINUE PROPRONOLOL, ATORVASTATIN, HCTZ, GLUCOPHAGE AND LOVENOX
[2017-01-03] MEDS: Enoxaparin 40 mg Syringe SC SCH (16:48)
[2017-01-04] MEDS: Oxycodone/Acetaminophen 5/325 mg Tab PO PRN ×3 (02:49→18:02)
[2017-01-04] MEDS: Insulin Regular 100 units/ml SC SCH ×4 (06:36→21:25)
[2017-01-04] MEDS: Enoxaparin 40 mg Syringe SC SCH (09:04)
[2017-01-04] MEDS: PROPRANOLOL 120 MG PO SCH (09:05)
--- NOTE | 2017-01-04 10:41 | CP.PCM.PN ---
Subjective - Date & Time of Evaluation Date of Evaluation: 01/04/17 Time of Evaluation: 10:30 - Subjective Subjective: NO CHEST PAIN OR SOB FEELS OK EXCEPT FOR SURGICAL SITE DISCOMFORT Objective - Vital Signs/Intake and Output Vital Signs (last 24 hours): Temp Pulse Resp BP Pulse Ox 98.1 F 68 20 123/73 93 L 01/04/17 08:23 01/04/17 09:05 01/04/17 08:23 01/04/17 09:05 01/04/17 08:23 - Medications Medications: Current Medications Alprazolam (Xanax) 0.25 mg PO TID@0900,1300,2000 [facility] Stop: 01/10/17 09:01 Last Admin: 01/04/17 09:06 Dose: 0.25 mg Atorvastatin Calcium (Lipitor) 10 mg PO DAILY [facility] Last Admin: 01/04/17 09:04 Dose: 10 mg Enoxaparin Sodium (Lovenox) 40 mg SC DAILY [facility] PRN Reason: Protocol Last Admin: 01/04/17 09:04 Dose: 40 mg Hydrochlorothiazide (Microzide) 12.5 mg PO DAILY [facility] Last Admin: 01/04/17 09:04 Dose: 12.5 mg Insulin Human Regular (Humulin R) 0 units SC ACHS [facility] PRN Reason: Protocol Last Admin: 01/04/17 06:36 Dose: Not Given Metformin HCl (Glucophage) 500 mg PO BIDWM [facility] Last Admin: 01/04/17 09:04 Dose: 500 mg Oxycodone/Acetaminophen (Percocet 5/325 Mg Tab) 2 tab PO Q4 PRN PRN Reason: Pain, severe (8-10) Stop: 01/07/17 05:01 Last Admin: 01/04/17 06:46 Dose: 2 tab Primidone (Mysoline) 250 mg PO DAILY [facility] Last Admin: 01/04/17 09:04 Dose: 250 mg Propranolol HCl (Inderal La) 120 mg PO DAILY [facility] Last Admin: 01/04/17 09:05 Dose: 120 mg - Labs Labs: 01/03/17 06:30 - Respiratory Exam Respiratory Exam: Clear to Ausculation Bilateral - Cardiovascular Exam Cardiovascular Exam: REGULAR RHYTHM, +S1, +S2 - GI/Abdominal Exam GI & Abdominal Exam: Soft, Normal Bowel Sounds Assessment and Plan - Assessment and Plan (Free Text) Assessment: RIGHT RADIUS DISTAL FRACTURE REPAIR HYPERTENSION HYPERLIPIDEMIA TYPE 2 DM Plan: CONTINUE PROPRANOLOL, ATORVASTATIN AND GLUCOPHAGE
[2017-01-05] MEDS: Oxycodone/Acetaminophen 5/325 mg Tab PO PRN ×4 (00:58→23:59)
[2017-01-05] MEDS: Insulin Regular 100 units/ml SC SCH ×4 (06:50→22:21)
[2017-01-05] MEDS: PROPRANOLOL 120 MG PO SCH (09:27)
[2017-01-05] MEDS: Enoxaparin 40 mg Syringe SC SCH (09:28)
--- NOTE | 2017-01-05 15:56 | CP.PCM.PN ---
Subjective - Date & Time of Evaluation Date of Evaluation: 01/05/17 Time of Evaluation: 08:30 - Subjective Subjective: NO CHEST PAIN OR SOB FEELS GOOD ONLY COMPLAIN IS RUE DISCOMFORT Objective - Vital Signs/Intake and Output Vital Signs (last 24 hours): Temp Pulse Resp BP Pulse Ox 97.7 F 65 20 116/63 100 01/05/17 09:00 01/05/17 09:27 01/05/17 08:20 01/05/17 09:27 01/05/17 08:20 - Medications Medications: Current Medications Alprazolam (Xanax) 0.25 mg PO TID@0900,1300,2000 [facility] Stop: 01/10/17 09:01 Last Admin: 01/05/17 13:13 Dose: 0.25 mg Atorvastatin Calcium (Lipitor) 10 mg PO DAILY [facility] Last Admin: 01/05/17 09:28 Dose: 10 mg Enoxaparin Sodium (Lovenox) 40 mg SC DAILY [facility] PRN Reason: Protocol Last Admin: 01/05/17 09:28 Dose: 40 mg Hydrochlorothiazide (Microzide) 12.5 mg PO DAILY [facility] Last Admin: 01/05/17 09:29 Dose: 12.5 mg Insulin Human Regular (Humulin R) 0 units SC ACHS [facility] PRN Reason: Protocol Last Admin: 01/05/17 13:09 Dose: Not Given Metformin HCl (Glucophage) 500 mg PO BIDWM [facility] Last Admin: 01/05/17 09:26 Dose: 500 mg Oxycodone/Acetaminophen (Percocet 5/325 Mg Tab) 2 tab PO Q4 PRN PRN Reason: Pain, severe (8-10) Stop: 01/07/17 05:01 Last Admin: 01/05/17 08:19 Dose: 2 tab Primidone (Mysoline) 250 mg PO DAILY [facility] Last Admin: 01/05/17 09:29 Dose: 250 mg Propranolol HCl (Inderal La) 120 mg PO DAILY [facility] Last Admin: 01/05/17 09:27 Dose: 120 mg - Labs Labs: 01/03/17 06:30 - Respiratory Exam Respiratory Exam: Clear to Ausculation Bilateral - Cardiovascular Exam Cardiovascular Exam: REGULAR RHYTHM, +S1, +S2 Assessment and Plan - Assessment and Plan (Free Text) Assessment: S/P RIGHT DISTAL RADIUS SURGERY HYPERTENSION HYPERLIPIDEMIA TYPE 2 DM Plan: CONTINUE PROPRANOLOL, ATORVASTATIN, GLUCOPHAGE, LOVENOX CONTINUE PHYSICAL THERAPY
[2017-01-06] MEDS: Oxycodone/Acetaminophen 5/325 mg Tab PO PRN (04:09)
[2017-01-06] MEDS: Insulin Regular 100 units/ml SC SCH ×4 (06:32→21:45)
[2017-01-06] MEDS: PROPRANOLOL 120 MG PO SCH (08:06)
[2017-01-06] MEDS: Enoxaparin 40 mg Syringe SC SCH (08:07)
--- NOTE | 2017-01-06 10:47 | CP.PCM.PN ---
Subjective - Date & Time of Evaluation Date of Evaluation: 01/06/17 Time of Evaluation: 08:00 - Subjective Subjective: NO COMPLAINTS Objective - Vital Signs/Intake and Output Vital Signs (last 24 hours): Temp Pulse Resp BP Pulse Ox 97.9 F 66 20 119/62 100 01/06/17 08:13 01/06/17 08:13 01/06/17 08:13 01/06/17 08:13 01/06/17 08:13 - Medications Medications: Current Medications Alprazolam (Xanax) 0.25 mg PO TID@0900,1300,2000 [facility] Stop: 01/10/17 09:01 Last Admin: 01/06/17 08:06 Dose: 0.25 mg Atorvastatin Calcium (Lipitor) 10 mg PO DAILY [facility] Last Admin: 01/06/17 08:07 Dose: 10 mg Hydrochlorothiazide (Microzide) 12.5 mg PO DAILY [facility] Last Admin: 01/06/17 08:07 Dose: 12.5 mg Insulin Human Regular (Humulin R) 0 units SC [facility] PRN Reason: Protocol Last Admin: 01/06/17 06:32 Dose: Not Given Metformin HCl (Glucophage) 500 mg PO BIDWM [facility] Last Admin: 01/06/17 08:06 Dose: 500 mg Oxycodone/Acetaminophen (Percocet 5/325 Mg Tab) 2 tab PO Q4 PRN PRN Reason: Pain, severe (8-10) Stop: 01/07/17 05:01 Last Admin: 01/06/17 04:09 Dose: 2 tab Primidone (Mysoline) 250 mg PO DAILY [facility] Last Admin: 01/06/17 08:07 Dose: 250 mg Propranolol HCl (Inderal La) 120 mg PO DAILY [facility] Last Admin: 01/06/17 08:06 Dose: 120 mg - Labs Labs: 01/03/17 06:30 - Respiratory Exam Respiratory Exam: Clear to Ausculation Bilateral - Cardiovascular Exam Cardiovascular Exam: REGULAR RHYTHM, +S1, +S2 - Extremities Exam Extremities Exam: Normal Inspection Assessment and Plan - Assessment and Plan (Free Text) Assessment: HYPERTENSION HYPERLIPIDEMIA TYPE 2 DM RIGHT RADIUS FRACTURE SURGERY Plan: CONTINUE PROPRANOLOL, ATORVASTATIN AND GLUCOPHAGE
--- NOTE | 2017-01-06 18:16 | CP.PCM.PN ---
Subjective - Date & Time of Evaluation Date of Evaluation: 01/06/17 Time of Evaluation: 16:00 - Subjective Subjective: Pt seen and examined. Denied any complaint Objective - Vital Signs/Intake and Output Vital Signs (last 24 hours): Temp Pulse Resp BP Pulse Ox 98.2 F 69 20 114/55 L 96 01/06/17 16:54 01/06/17 16:54 01/06/17 16:54 01/06/17 16:54 01/06/17 16:54 - Medications Medications: Current Medications Alprazolam (Xanax) 0.25 mg PO TID@0900,1300,2000 [facility] Stop: 01/10/17 09:01 Last Admin: 01/06/17 12:45 Dose: 0.25 mg Atorvastatin Calcium (Lipitor) 10 mg PO DAILY [facility] Last Admin: 01/06/17 08:07 Dose: 10 mg Hydrochlorothiazide (Microzide) 12.5 mg PO DAILY [facility] Last Admin: 01/06/17 08:07 Dose: 12.5 mg Insulin Human Regular (Humulin R) 0 units SC ACHS [facility] PRN Reason: Protocol Last Admin: 01/06/17 16:24 Dose: Not Given Metformin HCl (Glucophage) 500 mg PO BIDWM [facility] Last Admin: 01/06/17 16:24 Dose: 500 mg Oxycodone/Acetaminophen (Percocet 5/325 Mg Tab) 2 tab PO Q4 PRN PRN Reason: Pain, severe (8-10) Stop: 01/07/17 05:01 Last Admin: 01/06/17 04:09 Dose: 2 tab Primidone (Mysoline) 250 mg PO DAILY [facility] Last Admin: 01/06/17 08:07 Dose: 250 mg Propranolol HCl (Inderal La) 120 mg PO DAILY [facility] Last Admin: 01/06/17 08:06 Dose: 120 mg - Labs Labs: 01/03/17 06:30 - Constitutional Appears: No Acute Distress - Head Exam Head Exam: ATRAUMATIC - Eye Exam Eye Exam: absent: Scleral icterus - ENT Exam ENT Exam: Mucous Membranes Moist - Neck Exam Neck Exam: absent: Meningismus - Respiratory Exam Respiratory Exam: absent: Rhonchi, Wheezes, Respiratory Distress - Cardiovascular Exam Cardiovascular Exam: REGULAR RHYTHM, +S1, +S2 - GI/Abdominal Exam GI & Abdominal Exam: Soft. absent: Tenderness - Rectal Exam Rectal Exam: Deferred - Neurological Exam Neurological Exam: Alert, Oriented x3 - Psychiatric Exam Psychiatric exam: Normal Affect - Skin Skin Exam: Dry, Intact Assessment and Plan - Assessment and Plan (Free Text) Assessment: 86 yo female with history of HTN, DM2 and Essential Tremors underwent right Radial Head Transplant and right Proximal Ulnar ORIF on 12/22/2016 after sustaining fractures on right radial head, right proximal ulnar and right distal radial fracture from falling 15 flight of stairs. Patient did well post op and was transferred to TCU for therapy. 1 Right Displaced Distal Radial Fracture S/P Closed Reduction with Percutaneous Pin Fixation 01/01/17 pain management PRN continue PT 2 Right Elbow (Radial Head and Proximal Ulna) Continue pain management with Percocet PRN pain management 3. DM II BS controlled Reguar insulin sliding scale with accuchecks Cardiac and Diabetic diet Metformin 500 mg PO BID 4. HTN BP stable Propranol 120mg PO daily HCTZ 12.5 mg PO 1x/day 5 HLD continue Atorvastatin 6. Essential Tremors continue Primidone and Propranolol 7.DVt prophylaxis on Lovenox
[2017-01-07] MEDS: Oxycodone/Acetaminophen 5/325 mg Tab PO PRN ×3 (01:24→14:58)
[2017-01-07] MEDS: Insulin Regular 100 units/ml SC SCH ×4 (06:33→22:51)
[2017-01-07] MEDS: PROPRANOLOL 120 MG PO SCH (08:23)
--- NOTE | 2017-01-07 12:29 | CP.PCM.PN ---
Subjective - Date & Time of Evaluation Date of Evaluation: 01/07/17 Time of Evaluation: 10:30 - Subjective Subjective: NO NEW COMPLAINTS Objective - Vital Signs/Intake and Output Vital Signs (last 24 hours): Temp Pulse Resp BP Pulse Ox 97.6 F 67 20 121/63 99 01/07/17 08:07 01/07/17 08:23 01/07/17 08:07 01/07/17 08:23 01/07/17 08:07 - Medications Medications: Current Medications Alprazolam (Xanax) 0.25 mg PO TID@0900,1300,2000 [facility] Stop: 01/10/17 09:01 Last Admin: 01/07/17 09:05 Dose: 0.25 mg Atorvastatin Calcium (Lipitor) 10 mg PO DAILY [facility] Last Admin: 01/07/17 08:24 Dose: 10 mg Hydrochlorothiazide (Microzide) 12.5 mg PO DAILY [facility] Last Admin: 01/07/17 08:24 Dose: 12.5 mg Insulin Human Regular (Humulin R) [address] [facility] PRN Reason: Protocol Last Admin: 01/07/17 12:02 Dose: Not Given Metformin HCl (Glucophage) 500 mg PO BIDWM [facility] Last Admin: 01/07/17 08:24 Dose: 500 mg Oxycodone/Acetaminophen (Percocet 5/325 Mg Tab) 1 tab PO Q6 PRN PRN Reason: Pain, moderate (4-7) Stop: 01/10/17 07:02 Last Admin: 01/07/17 07:44 Dose: 1 tab Primidone (Mysoline) 250 mg PO DAILY [facility] Last Admin: 01/07/17 08:24 Dose: 250 mg Propranolol HCl (Inderal La) 120 mg PO DAILY [facility] Last Admin: 01/07/17 08:23 Dose: 120 mg - Labs Labs: 01/03/17 06:30 - Respiratory Exam Respiratory Exam: Clear to Ausculation Bilateral - Cardiovascular Exam Cardiovascular Exam: REGULAR RHYTHM, +S1, +S2 Assessment and Plan - Assessment and Plan (Free Text) Assessment: HYPERTENSION HYPERLIPIDEMIA S/P RIGHT RADIUS SURGERY Plan: CONTINUE PROPRANOLOL AND ATORVASTATIN CONTINUE PHYSICAL THERAPY
[2017-01-08] MEDS: Oxycodone/Acetaminophen 5/325 mg Tab PO PRN ×4 (00:23→22:41)
[2017-01-08] MEDS: Insulin Regular 100 units/ml SC SCH ×4 (08:32→21:41)
[2017-01-08] MEDS: PROPRANOLOL 120 MG PO SCH (08:32)
--- NOTE | 2017-01-08 08:53 | CP.PCM.PN ---
Subjective - Date & Time of Evaluation Date of Evaluation: 01/08/17 Time of Evaluation: 08:00 - Subjective Subjective: NO CHEST PAIN OR SOB Objective - Vital Signs/Intake and Output Vital Signs (last 24 hours): Temp Pulse Resp BP Pulse Ox 97.9 F 70 20 133/62 100 01/08/17 08:33 01/08/17 08:33 01/08/17 08:33 01/08/17 08:33 01/08/17 08:33 - Medications Medications: Current Medications Alprazolam (Xanax) 0.25 mg PO TID@0900,1300,2000 [facility] Stop: 01/10/17 09:01 Last Admin: 01/08/17 08:33 Dose: 0.25 mg Atorvastatin Calcium (Lipitor) [address] [facility] Last Admin: 01/08/17 08:32 Dose: 10 mg Hydrochlorothiazide (Microzide) 12.[address] [facility] Last Admin: 01/08/17 08:33 Dose: 12.5 mg Insulin Human Regular (Humulin R) [address] [facility] PRN Reason: Protocol Last Admin: 01/08/17 08:32 Dose: Not Given Metformin HCl (Glucophage) [address] [facility] Last Admin: 01/08/17 08:32 Dose: 500 mg Oxycodone/Acetaminophen (Percocet 5/325 Mg Tab) 1 tab PO Q6 PRN PRN Reason: Pain, moderate (4-7) Stop: 01/10/17 07:02 Last Admin: 01/08/17 08:39 Dose: 1 tab Primidone (Mysoline) [address] [facility] Last Admin: 01/08/17 08:31 Dose: 250 mg Propranolol HCl (Inderal La) [address] [facility] Last Admin: 01/08/17 08:32 Dose: 120 mg - Labs Labs: 01/03/17 06:30 - Respiratory Exam Respiratory Exam: Clear to Ausculation Bilateral - Cardiovascular Exam Cardiovascular Exam: REGULAR RHYTHM, +S1, +S2 Assessment and Plan - Assessment and Plan (Free Text) Assessment: S/P SURGERY FOR BOTH RIGHT ULNA AND RADIUS FRACTURES HYPERTENSION HYPERLIPIDEMIA TYPE 2 DM Plan: CONTINUE PROPRANOLOL, ATORVASTATIN AND GLUCOPHAGE
[2017-01-09] MEDS: Insulin Regular 100 units/ml SC SCH ×4 (06:30→21:46)
[2017-01-09] MEDS: Oxycodone/Acetaminophen 5/325 mg Tab PO PRN ×2 (09:17→22:11)
[2017-01-09] MEDS: PROPRANOLOL 120 MG PO SCH (09:34)
--- NOTE | 2017-01-09 13:46 | CP.PCM.PN ---
Subjective - Date & Time of Evaluation Date of Evaluation: 01/09/17 Time of Evaluation: 13:20 - Subjective Subjective: NO COMPLAINTS Objective - Vital Signs/Intake and Output Vital Signs (last 24 hours): Temp Pulse Resp BP Pulse Ox 97.7 F 67 20 114/75 90 L 01/09/17 09:00 01/09/17 09:34 01/09/17 09:00 01/09/17 09:34 01/09/17 09:00 - Medications Medications: Current Medications Alprazolam (Xanax) 0.25 mg PO TID@0900,1300,2000 [facility] Stop: 01/10/17 09:01 Last Admin: 01/09/17 13:13 Dose: 0.25 mg Atorvastatin Calcium (Lipitor) 10 mg PO DAILY [facility] Last Admin: 01/09/17 09:35 Dose: 10 mg Hydrochlorothiazide (Microzide) 12.5 mg PO DAILY [facility] Last Admin: 01/09/17 09:35 Dose: 12.5 mg Insulin Human Regular (Humulin R) 0 units SC [facility] PRN Reason: Protocol Last Admin: 01/09/17 11:40 Dose: Not Given Metformin HCl (Glucophage) 500 mg PO BIDWM [facility] Last Admin: 01/09/17 09:34 Dose: 500 mg Oxycodone/Acetaminophen (Percocet 5/325 Mg Tab) 1 tab PO Q6 PRN PRN Reason: Pain, moderate (4-7) Stop: 01/10/17 07:02 Last Admin: 01/09/17 09:17 Dose: 1 tab Primidone (Mysoline) 250 mg PO DAILY [facility] Last Admin: 01/09/17 09:36 Dose: 250 mg Propranolol HCl (Inderal La) 120 mg PO DAILY [facility] Last Admin: 01/09/17 09:34 Dose: 120 mg - Labs Labs: 01/03/17 06:30 - Respiratory Exam Respiratory Exam: Clear to Ausculation Bilateral - Cardiovascular Exam Cardiovascular Exam: REGULAR RHYTHM, +S1, +S2 Assessment and Plan - Assessment and Plan (Free Text) Assessment: HYPERTENSION HYPERLIPIDEMIA TYPE 2 DM S/P RIGHT RADIUS AND ULNA SURGERY FOR FRACTURES Plan: CONTINUE PROPRANOLOL, ATORVASTATIN, GLUCOPHAGE
--- NOTE | 2017-01-09 17:58 | CP.PCM.PN ---
Subjective - Date & Time of Evaluation Date of Evaluation: 01/09/17 Time of Evaluation: 14:30 - Subjective Subjective: Pt seen and examined. Denied any complaint aside from mild soreness of the right arm. Objective - Vital Signs/Intake and Output Vital Signs (last 24 hours): Temp Pulse Resp BP Pulse Ox 96 F L 67 20 120/65 98 01/09/17 16:36 01/09/17 16:36 01/09/17 16:36 01/09/17 16:36 01/09/17 16:36 - Medications Medications: Current Medications Alprazolam (Xanax) 0.25 mg PO TID@0900,1300,2000 [facility] Stop: 01/10/17 09:01 Last Admin: 01/09/17 13:13 Dose: 0.25 mg Atorvastatin Calcium (Lipitor) 10 mg PO DAILY [facility] Last Admin: 01/09/17 09:35 Dose: 10 mg Hydrochlorothiazide (Microzide) 12.5 mg PO DAILY [facility] Last Admin: 01/09/17 09:35 Dose: 12.5 mg Insulin Human Regular (Humulin R) 0 units SC ACHS [facility] PRN Reason: Protocol Last Admin: 01/09/17 11:40 Dose: Not Given Metformin HCl (Glucophage) 500 mg PO BIDWM [facility] Last Admin: 01/09/17 16:01 Dose: 500 mg Oxycodone/Acetaminophen (Percocet 5/325 Mg Tab) 1 tab PO Q6 PRN PRN Reason: Pain, moderate (4-7) Stop: 01/10/17 07:02 Last Admin: 01/09/17 09:17 Dose: 1 tab Primidone (Mysoline) 250 mg PO DAILY [facility] Last Admin: 01/09/17 09:36 Dose: 250 mg Propranolol HCl (Inderal La) 120 mg PO DAILY [facility] Last Admin: 01/09/17 09:34 Dose: 120 mg - Labs Labs: 01/03/17 06:30 - Constitutional Appears: No Acute Distress, Other (tremelous) - Head Exam Head Exam: ATRAUMATIC - Eye Exam Eye Exam: absent: Scleral icterus - ENT Exam ENT Exam: Mucous Membranes Moist - Neck Exam Neck Exam: absent: Meningismus - Respiratory Exam Respiratory Exam: absent: Rhonchi, Wheezes, Respiratory Distress - Cardiovascular Exam Cardiovascular Exam: REGULAR RHYTHM, +S1, +S2 - GI/Abdominal Exam GI & Abdominal Exam: Soft. absent: Tenderness - Rectal Exam Rectal Exam: Deferred - Neurological Exam Neurological Exam: Alert, Oriented x3 - Psychiatric Exam Psychiatric exam: Normal Affect - Skin Skin Exam: Dry, Intact Assessment and Plan (1) Wrist fracture Status: Acute (2) Elbow fracture Status: Acute (3) DM type 2 (diabetes mellitus, type 2) Status: Chronic (4) HTN (hypertension) Status: Chronic (5) Essential tremor Status: Chronic - Assessment and Plan (Free Text) Assessment: 86 yo female fell 15 flight of stairs fracturing her right wrist, right elbow. Had ORIF of the right elbow on 12/22/16 and closed reduction and pinning of right wrist on 01/01/17. Both procedures done by Dr Cabello. she was then transferred to TCU for physical therapy. 1 Right Displaced Distal Radial Fracture S/P Closed Reduction with Percutaneous Pin Fixation 01/01/[address] Keep arm elevated pain management PRN, ice packs 2 Right Elbow (Radial Head and Proximal Ulna) Continue pain management with Percocet 3. DM II BS controlled Diabetic diet Metformin 500 mg PO BID 4. HTN BP stable Propranol 120mg PO daily HCTZ 12.5 mg PO 1x/day 5. HLD on Atorvastatin 6. Essential Tremors continue Primidone and Propranolol 7.DVt prophylaxis on Lovenox
[2017-01-10] MEDS: Insulin Regular 100 units/ml SC SCH ×4 (06:36→21:06)
[2017-01-10] MEDS: PROPRANOLOL 120 MG PO SCH (08:45)
[2017-01-10] MEDS: Oxycodone/Acetaminophen 5/325 mg Tab PO PRN ×2 (10:50→22:01)
--- NOTE | 2017-01-10 11:09 | CP.PCM.PN ---
Subjective - Date & Time of Evaluation Date of Evaluation: 01/10/17 Time of Evaluation: 10:20 - Subjective Subjective: ONLY HAS RIGHT ARM POSITION DISCOMFORT Objective - Vital Signs/Intake and Output Vital Signs (last 24 hours): Temp Pulse Resp BP Pulse Ox 97.2 F L 65 20 118/58 L 99 01/10/17 08:41 01/10/17 08:45 01/10/17 08:41 01/10/17 08:45 01/10/17 08:41 - Medications Medications: Current Medications Alprazolam (Xanax) 0.25 mg PO TID [facility] Stop: 01/17/17 13:01 Atorvastatin Calcium (Lipitor) 10 mg PO DAILY [facility] Last Admin: 01/10/17 08:46 Dose: 10 mg Enoxaparin Sodium (Lovenox) 40 mg SC DAILY [facility] PRN Reason: Protocol Hydrochlorothiazide (Microzide) 12.5 mg PO DAILY [facility] Last Admin: 01/10/17 08:46 Dose: 12.5 mg Insulin Human Regular (Humulin R) 0 units SC ACHS [facility] PRN Reason: Protocol Last Admin: 01/10/17 06:36 Dose: Not Given Metformin HCl (Glucophage) 500 mg PO BIDWM [facility] Last Admin: 01/10/17 08:45 Dose: 500 mg Oxycodone/Acetaminophen (Percocet 5/325 Mg Tab) 1 tab PO Q6 PRN PRN Reason: Pain, moderate (4-7) Stop: 01/13/17 10:57 Primidone (Mysoline) 250 mg PO DAILY [facility] Last Admin: 01/10/17 08:46 Dose: 250 mg Propranolol HCl (Inderal La) 120 mg PO DAILY [facility] Last Admin: 01/10/17 08:45 Dose: 120 mg - Labs Labs: 01/03/17 06:30 - Respiratory Exam Respiratory Exam: Clear to Ausculation Bilateral - Cardiovascular Exam Cardiovascular Exam: REGULAR RHYTHM, +S1, +S2 Assessment and Plan - Assessment and Plan (Free Text) Assessment: HYPERTENSION HYPERLIPIDEMIA TYPE 2 DM S/P ORTHOPEDIC REPAIRS OF BOTH RT RADIUS AND RT ULNA Plan: CONTINUE PROPRONOLOL, ATORVASTATIN AND GLUCOPHAGE CONTINUE SUBACUTE REHAB
[2017-01-10] MEDS: Enoxaparin 40 mg Syringe SC SCH (12:58)
--- NOTE | 2017-01-10 15:45 | RAD ---
PROCEDURE: Right Wrist Radiographs. HISTORY: post op COMPARISON: 01/01/2017. FINDINGS: BONES: Stable position, alignment of orthopedic hardware. Stable position and alignment of major fracture fragments. JOINTS: Normal. No dislocation. SOFT TISSUES: Normal. OTHER FINDINGS: None. IMPRESSION: No significant interval change compared to the prior examination(s).
[2017-01-11] MEDS: Oxycodone/Acetaminophen 5/325 mg Tab PO PRN ×2 (04:26→19:59)
[2017-01-11] MEDS: Insulin Regular 100 units/ml SC SCH ×4 (07:04→21:33)
[2017-01-11] MEDS: PROPRANOLOL 120 MG PO SCH (08:53)
[2017-01-11] MEDS: Enoxaparin 40 mg Syringe SC SCH (08:55)
[2017-01-12] MEDS: Oxycodone/Acetaminophen 5/325 mg Tab PO PRN (02:19)
[2017-01-12] MEDS: Insulin Regular 100 units/ml SC SCH ×2 (06:49→11:35)
[2017-01-12] MEDS: Enoxaparin 40 mg Syringe SC SCH (07:59)
[2017-01-12] MEDS: PROPRANOLOL 120 MG PO SCH (07:59)
[2017-01-12 08:01] VITALS: BP 119/61; PULSE 74
[2017-01-12 08:29] VITALS: TEMP 98.1; O2SAT 100
--- NOTE | 2017-01-12 08:39 | CP.PCM.PN ---
Subjective - Date & Time of Evaluation Date of Evaluation: 01/12/17 Time of Evaluation: 08:00 - Subjective Subjective: NO CHEST PAIN OR SOB ONLY COMPLAINT IS RIGHT ARM DISCOMFORT Objective - Vital Signs/Intake and Output Vital Signs (last 24 hours): Temp Pulse Resp BP Pulse Ox 98.1 F 74 20 119/61 100 01/12/17 08:28 01/12/17 08:28 01/12/17 08:28 01/12/17 08:28 01/12/17 08:28 - Medications Medications: Current Medications Alprazolam (Xanax) 0.25 mg PO TID@0900,1300,2100 [facility] Stop: 01/17/17 13:01 Last Admin: 01/12/17 08:00 Dose: 0.25 mg Atorvastatin Calcium (Lipitor) 10 mg PO DAILY [facility] Last Admin: 01/12/17 08:00 Dose: 10 mg Enoxaparin Sodium (Lovenox) 40 mg SC DAILY [facility] PRN Reason: Protocol Last Admin: 01/12/17 07:59 Dose: 40 mg Hydrochlorothiazide (Microzide) 12.5 mg PO DAILY [facility] Last Admin: 01/12/17 08:00 Dose: 12.5 mg Insulin Human Regular (Humulin R) 0 units SC ACHS [facility] PRN Reason: Protocol Last Admin: 01/12/17 06:49 Dose: Not Given Metformin HCl (Glucophage) 500 mg PO BIDWM [facility] Last Admin: 01/12/17 07:55 Dose: 500 mg Oxycodone/Acetaminophen (Percocet 5/325 Mg Tab) 1 tab PO Q6 PRN PRN Reason: Pain, moderate (4-7) Stop: 01/13/17 10:57 Last Admin: 01/12/17 02:19 Dose: 1 tab Primidone (Mysoline) 250 mg PO DAILY [facility] Last Admin: 01/12/17 07:59 Dose: 250 mg Propranolol HCl (Inderal La) 120 mg PO DAILY [facility] Last Admin: 01/12/17 07:59 Dose: 120 mg - Labs Labs: 01/03/17 06:30 - Respiratory Exam Respiratory Exam: Clear to Ausculation Bilateral - Cardiovascular Exam Cardiovascular Exam: REGULAR RHYTHM, +S1, +S2 Assessment and Plan - Assessment and Plan (Free Text) Assessment: HYPERTENSION HYPERLIPIDEMIA TYPE 2 DM S/P SURGICAL REPAIR OF RIGHT ULNA AND RADIUS FRACTURES Plan: FOR DISCHARGE TODAY CONTINUE PROPRANOLOL, ATORVASTATIN AND GLUCOPHAGE FU WITH HER OWN LOCAL PHYSICIAN
--- NOTE | 2017-01-12 10:01 | CP.PCM.DIS ---
Provider - Provider Date of Admission: 01/02/17 17:09 Attending physician: Konrad Nichols MD Primary care physician: Dr. Lane Consults: Orthopedics Dr. Mares Time Spent in preparation of Discharge (in minutes): 40 Hospital Course - Lab Results Lab Results: Most Recent Lab Values WBC 6.7 K/uL (4.8-10.8) 01/03/17 06:30 RBC 3.23 Mil/uL (3.80-5.20) L 01/03/17 06:30 Hgb 10.5 g/dL (12.0-16.0) L 01/03/17 06:30 Hct 31.9 % (34.0-47.0) L 01/03/17 06:30 MCV 98.5 fl (81.0-99.0) 01/03/17 06:30 MCH 32.5 pg (27.0-31.0) H 01/03/17 06:30 MCHC 33.0 g/dL (33.0-37.0) 01/03/17 06:30 RDW 14.5 % (11.5-14.5) 01/03/17 06:30 Plt Count 359 K/uL (130-400) 01/03/17 06:30 MPV 7.3 fl (7.2-11.7) 01/03/17 06:30 Neut % (Auto) 63.7 % (50.0-75.0) 01/03/17 06:30 Lymph % (Auto) 19.7 % (20.0-40.0) L 01/03/17 06:30 Sac % (Auto) 10.7 % (0.0-10.0) H 01/03/17 06:30 Eos % (Auto) 4.9 % (0.0-4.0) H 01/03/17 06:30 Baso % (Auto) 1.0 % (0.0-2.0) 01/03/17 06:30 Neut # 4.3 K/uL (1.8-7.0) 01/03/17 06:30 Lymph # 1.3 K/uL (1.0-4.3) 01/03/17 06:30 Sac # 0.7 K/uL (0.0-0.8) 01/03/17 06:30 Eos # 0.3 K/uL (0.0-0.7) 01/03/17 06:30 Baso # 0.1 K/uL (0.0-0.2) 01/03/17 06:30 POC Glucose (mg/dL) 97 mg/dL (65-110) 01/12/17 05:37 - Hospital Course Hospital Course: 86 year old male who was admitted to [facility] 12/21/16 s/p falling down 15 flight of stairs. X Rays here at [facility] indicated fracture of the right radial head, right proximal ulna, and right distal radial fracture. She underwent Right Radial Head Transplant and Right Proximal Ulnar ORIF by Orthopedics Dr. Mares . She was then transferred to [facility] TCU on 12/25/16 for PT/OT. Patient then underwent Closed Reduction with Percutaneous Pin Fixation of Displaced Distal Right Radial Fracture by Dr. Mares on 01/01/17. She was discharged to the Medical Surgical Unit for observation on 01/01/17 and then transferred to TCU for PT/OT. Please see individual assessment and plans below for details. Upon ROS: The Right Upper Arm and Elbow and Hand are "achy" and the fingers of the right hand are "sore" She is currently moving her bowels without any issues with last bowel movements NO other complaints: NO chest pain, NO palpitations, NO SOB/Cough/Wheezing, NO dysphagia/odynophagia , NO abdominal pain, NO n/v/d/c, NO burning/pain with urination, NO lightheadedness/dizziness, NO headaches, NO new changes in vision/eye pain, NO new changes in hearing/ear pain, NO paresthesias PMH: DM II; HTN; HLD; Benign Essential tremors. PSH: Endoscopy; Cardiac Cath 2010; Cholecystectomy > 20 years ago; Bilateral Knee replacement SH: No smoking; No Alcohol use; No illegal drug use; Live with Family FH: No Hereditary diseases Allergies: NKDA Medications: Please see individual Assessment and Plan below HEENT: NCA, EOMI, PERRLA, NO cervical lymphadenopathy, NO thyromegaly, Oral Mucosa and Nasal Turbinates are moist, NO Pharyngeal Erythema/Exudate Cardiology: Systolic Ejection Murmur heard loudest along left lower sternal border Respiratory: CTA B/L, NO R/R/W GI: BSx4, Soft, NT, Central Obesity, NO HSM, NO Guarding/NO Rebound Tenderness Ext: Right Arm in soft cast, Pulses are strong and equal in the bilateral LE and strong in the Left UE, Capillary Refill is 2 seconds in all extremities, NO edema in Left UE and B/L LE, Sensation in all extremities is intact and patient able to move all of the fingers of the Right UE Neuro: CN II through XII are grossly intact Assessement and Plan: 1). Right Elbow (Radial Head and Proximal Ulna) Right Radial Head Transplant and Right Proximal Ulnar ORIF on 12/22/16 2). Right Displaced Distal Radial Fracture S/P Closed Reduction with Percutaneous Pin Fixation 01/01/17 2). Hx Suspected UTI UA cloudy with LE +, WBC 45 and many bacteria however Urine Culture 12/21/16 did not show any growth therefore the Rocephin was discontinued Currently NO complaints of burning/pain with urination 3). Hx Dehydration Resolved 4). Hx Neutrophilic Leukocytosis Most likely reactive WBC normalized Resolved 5). Hx DM II with Hyperglycemia Reguar insulin sliding scale with accuchecks Cardiac and Diabetic diet Metformin 500 mg PO 2x/day Controlled 6). Hx HTN Propranol 120mg PO daily HCTZ 12.5 mg PO 1x/day Controlled 7). Hx HLD Atorvastatin 10 mg PO 1x/day 8). Hx Essential Tremors Primidone 250 mg PO 1x/day Propranolol 120 mg PO 1x/day 9). Prophylactic Measures B/L Jose Manuel Stockings Xanax 0.25 mg PO Q8H PRN Anxiety Xanax 0.25 mg PO 1x/day Protonix 40 mg PO 1x/day Patient is stable for discharge to home. The following instructions were explained to patient, daughter, and son: 1). Follow up with Primary Care Physician Dr. Lane in the next 7 to 10 days. 2). Follow up with Orthopedics Dr. Mares on 01/20/17 at 11:30 AM. 3). Please continue to take the following home medications that you stated you had enough of at home: Metformin 500 mg 1 tablet by mouth 2x/day (8 AM and 5 PM) Propranolol 120 mg 1 tablet by mouth 1x/day (9 AM) Primidone 250 mg 1 tablet by mouth 1x/day (9 AM) HCTZ 12.5 mg 1 tablet by mouth 1x/day (9 AM) Atorvastatin 10 mg 1 tablet by mouth 1x/day (9 AM) 4). Please also purchase the following medication without a prescription and take as instructed until directed by Dr. Mares: Aspirin 81 mg 1 tablet by mouth 2x/day. Konrad Nicohls D.O. Discharge Exam - Head Exam Head Exam: ATRAUMATIC Discharge Plan - Follow Up Plan Condition: GOOD Disposition: HOME/ ROUTINE
== END 2017-01-12 12:00 | disposition home or self-care (01) | DRG 561 ==
LOC: H.TCU 17:09
PROVIDERS: ADMIT Family Medicine; ATTEND Family Medicine
PROC: F08Z4FZ Home Management Treatment using Assistive, Adaptive, Supportive or Protective Equipment (ICD-10-PCS; principal; 2017-01-02)
PROC: F07Z9ZZ Gait Training/Functional Ambulation Treatment (ICD-10-PCS; 2017-01-02)
PROC: F07Z9FZ Gait Training/Functional Ambulation Treatment using Assistive, Adaptive, Supportive or Protective Equipment (ICD-10-PCS; 2017-01-02)
PROC: F07L6ZZ Therapeutic Exercise Treatment of Musculoskeletal System - Lower Back / Lower Extremity (ICD-10-PCS; 2017-01-02)
DX: S52.121D Displaced fracture of head of right radius, subsequent encounter for closed fracture with routine healing (principal); E11.65 Type 2 diabetes mellitus with hyperglycemia; W10.9XXD Fall (on) (from) unspecified stairs and steps, subsequent encounter; S52.001D Unspecified fracture of upper end of right ulna, subsequent encounter for closed fracture with routine healing; S52.501D Unspecified fracture of the lower end of right radius, subsequent encounter for closed fracture with routine healing; I10 Essential (primary) hypertension; E78.5 Hyperlipidemia, unspecified; G25.0 Essential tremor; Z96.653 Presence of artificial knee joint, bilateral

== ENCOUNTER 2017-02-26 05:56 | Day surgery (SDC) | payer MEDICARE ==
[2017-02-26 06:11] VITALS: BMI 32.1
[2017-02-26] MEDS ORDERED: Propofol 10 mg/ml Inj (20 ML) ONE (07:13)
[2017-02-26] MEDS ORDERED: Succinylcholine 200 mg/10 ml Inj IV ONE (07:14)
[2017-02-26] MEDS ORDERED: ePHEDrine 50 mg/ml Inj ONE ×2 (07:14→07:49)
[2017-02-26 07:29] LABS: BLOOD UREA NITROGEN 17 mg/dl (7-17); CALCIUM 9.5 mg/dL (8.4-10.2); CARBON DIOXIDE 29 mmol/L (22-30); CHLORIDE 97 mmol/L (98-107); GFR AFRICAN-AMERICAN > 60; GLUCOSE,RANDOM 128 mg/dL (65-105); POTASSIUM 3.4 MMOL/L (3.6-5.0); SODIUM 138 mmol/l (132-148)
[2017-02-26] MEDS ORDERED: Etomidate 20 mg/10ml Inj IV ONE (07:29)
[2017-02-26 07:36] LABS: HEMATOCRIT 38.5 % (34.0-47.0); MEAN CELL VOLUME 99.2 fl (81.0-99.0); MEAN CORPUSCULAR HEMOGLOBIN 32.2 pg (27.0-31.0); MEAN CORPUSCULAR HGB CONC 32.5 g/dL (33.0-37.0); RED CELL DISTRIBUTION WIDTH 13.6 % (11.5-14.5); WHITE BLOOD COUNT 6.3 K/uL (4.8-10.8)
[2017-02-26] MEDS ORDERED: Bupivacaine 0.5% Inj(30mL) ONE (08:04)
[2017-02-26] MEDS ORDERED: Bacitracin OINT 15GM TOP ONE (08:23)
[2017-02-26] MEDS ORDERED: HYDROmorphone 0.5 mg/0.5 ml ISec IVP PRN (08:40)
[2017-02-26] MEDS ORDERED: Lactated Ringer's 1,000 ML IV SCH (08:40)
[2017-02-26] MEDS ORDERED: Lactated Ringer's 1,000 ML IV ONE (09:16)
[2017-02-26 09:54] VITALS: TEMP 98.2; O2SAT 96
[2017-02-26 10:24] LABS: PARTIAL THROMBOPLASTIN TIME 30.7 Seconds (25.6-37.1)
[2017-02-26 10:44] VITALS: BP 128/72; PULSE 64; RESP 18
--- NOTE | 2017-02-26 11:13 | PCM.SURG1 ---
Surgeon's Initial Post Op Note - Surgeon's Notes Surgeon: Irineo Architectural Intern: JOSE Casas Type of Anesthesia: General Endo Anesthesia Administered By: DR Chanel Pre-Operative Diagnosis: s/p pin fixation distal radius fracture- healed distal radius fx. s/p ex fixator applx. s.p R radial head replacement Operative Findings: as above: heal;ed distal radius fx. s/p successful radial head replacement R elbow Post-Operative Diagnosis: as above Operation Performed: hardware removal ( dep). removal external fixator. manipulation R elbow under fluoro/anaesthesia Specimen/Specimens Removed: pins Estimated Blood Loss: EBL {In ML}: 15 Blood Products Given: N/A Drains Used: No Drains Post-Op Condition: Good Date of Surgery/Procedure: 02/26/17 Time of Surgery/Procedure: 08:05 (time in room 0735/anaesthesia induction time)
--- NOTE | 2017-02-26 13:48 | RAD ---
PROCEDURE: Intraoperative Fluoroscopy. HISTORY: FINDINGS: Fluoroscopic assistance was provided . Please refer to the operative report
--- NOTE | 2017-02-27 10:55 | OP ---
PROCEDURE DATE: 02/26/2017 PREOPERATIVE DIAGNOSES: 1. Healed distal radius fracture with painful hardware and status post application external fixator, right forearm. 2. Status post right radial head replacement. POSTOPERATIVE DIAGNOSES: 1. Healed distal radius fracture. 2. Status post right shoulder radial head replacement. PROCEDURES: 1. Removal of hardware, deep right wrist. 2. Removal of external fixator, right forearm. 3. Evaluation and manipulation of the right wrist and right elbow under fluoroscopy and anesthesia. SURGEON: Wiley Cabello MD DIRECTOR OF WORKFORCE DEVELOPMENT: Paula Wiseman, Certified Registered Nursing Patient Placement Coordinator ANESTHESIA: General endotracheal. COMPLICATIONS: None. DRAINS: None. OPERATIVE INDICATION: The patient is an 87-year-old woman who sustained a severe and devastating fal l on an outstretched right upper extremity approximately 8-10 weeks ago. The patient underwent 2 ext ensive surgeries including open reduction internal fixation of the distal radius fracture and applica tion of external fixator and right radial head replacement and ORIF complex ulna fracture. The patie nt presents at this point in time for hardware removal and evaluation and manipulation of both the el bow and the wrist under anesthesia. Pros, cons, risks and benefits of surgical approach were discuss ed with the patient and her family. The possibility of permanent stiffness of the wrist and elbow ar e discussed. The possibility of fracture, mechanical failure, infection, nerve injury, thromboemboli c disease are discussed. The patient can no longer stand the discomfort and wishes the surgery to be accomplished. OPERATIVE PROCEDURE: After having obtained informed consent in the above fashion, after having ident ified side, site, and procedure in a critical pause/timeout, after the satisfactory induction of the anesthetic, the patient identified in the supine position with all bony prominences well padded, the right upper extremity is prepped and free draped in the usual fashion for upper extremity surgery. T he tourniquet had been applied, but is not yet inflated. After the satisfactory induction of the ane sthetic by , after having identified side, site and procedure in a critical pause/timeout, a fter the satisfactory induction of the anesthetic, the patient identified, the right upper extremity is prepped and free draped in the usual fashion for upper extremity surgery. Under the surgeon's dir ection, the fluoroscope is positioned. Video images are generated, therapeutic decisions are made th erefrom. This having been accomplished, verification of position evidences a healed right distal rad ius fracture and a healed elbow fracture, ulna fracture with evidence of an acceptably positioned rad ial head replacement. The wrist will first be addressed. At this point in time, the external fixato r is removed using the screwdriver. The locks applied to the external fixator are removed and at thi s point in time, the pins are removed. This having been accomplished, the pins having been removed, at this point in time, the pins having been removed, the deep hardware is palpated using a #11 blade. The deep hardware had been located on fluoroscopy and sequentially, the 3 pins were removed with di ssection with a tonsil clamp. Great care is taken to avoid injury to the superficial sensory branch of the radial nerve and each sequential pin is removed. The wound is thoroughly irrigated. Closure is in layers with Vicryl and nylon. It should be noted at this point in time, under the surgeon's di rection, the fluoroscope is again positioned. The hardware having been removed, the right elbow is m anipulated through flexion/extension. There is a lack of terminal extension which is expected and th e wrist is stiff and is manipulated as well. Our clinical plan at this point in time is acceptable r esults of the fixation of the complex ulna fracture, status post radial head replacement and status p ost successful fixation and healing of the distal radius fracture. Closure is in layers again with V icryl and nylon. Compression dressing is applied. Wiley Cabello MD cc: [id number] TT: 02/27/2017 10:55:16 en
== END 2017-02-26 10:47 | disposition home or self-care (01) ==
LOC: H.OPSURG 05:56
PROVIDERS: ATTEND Orthopaedic Surgery
DX: T84.60XA Infection and inflammatory reaction due to internal fixation device of unspecified site, initial encounter (principal); E11.9 Type 2 diabetes mellitus without complications; E78.5 Hyperlipidemia, unspecified; I10 Essential (primary) hypertension
CPT/HCPCS: 20680; 25259; 36415; 80048; 82948; 85027; 85610; 85730; 88300; 88304; J0330; J0690; J2001; J2405; J2704; J3010; J7030; J7120